=== PATIENT | male | born 1945 | race Caucasian/White ===

== ENCOUNTER 2016-10-13 08:08 | Outpatient (CLI) | payer MEDICARE, BC | END 2016-10-13 08:09 | disposition home or self-care (01) | DX: E03.9 Hypothyroidism, unspecified (principal); Z72.89 Other problems related to lifestyle; I25.10 Atherosclerotic heart disease of native coronary artery without angina pectoris; Z79.899 Other long term (current) drug therapy; E78.2 Mixed hyperlipidemia; R73.09 Other abnormal glucose; Z13.9 Encounter for screening, unspecified ==

== ENCOUNTER 2016-10-18 09:11 | Outpatient (CLI) | payer MEDICARE, BC | END 2016-10-18 09:12 | disposition home or self-care (01) | DX: B19.20 Unspecified viral hepatitis C without hepatic coma (principal) ==

== ENCOUNTER 2016-10-22 08:57 | Emergency (ER) | payer MEDICARE, BC | END 2016-10-22 10:05 | disposition home or self-care (01) | DX: S86.912A Strain of unspecified muscle(s) and tendon(s) at lower leg level, left leg, initial encounter (principal); X50.1XXA Overexertion from prolonged static or awkward postures, initial encounter; Y92.003 Bedroom of unspecified non-institutional (private) residence as the place of occurrence of the external cause; I10 Essential (primary) hypertension; I25.10 Atherosclerotic heart disease of native coronary artery without angina pectoris; Z79.02 Long term (current) use of antithrombotics/antiplatelets; Z95.5 Presence of coronary angioplasty implant and graft; Z79.82 Long term (current) use of aspirin ==

== ENCOUNTER 2016-10-23 11:16 | Outpatient (CLI) | payer MEDICARE, BC | END 2016-10-23 11:17 | disposition home or self-care (01) | DX: B19.20 Unspecified viral hepatitis C without hepatic coma (principal) ==

== ENCOUNTER 2016-10-29 12:36 | Emergency (ER) | payer MEDICARE, BC | END 2016-10-29 13:30 | disposition home or self-care (01) | DX: S86.912D Strain of unspecified muscle(s) and tendon(s) at lower leg level, left leg, subsequent encounter (principal); X50.1XXD Overexertion from prolonged static or awkward postures, subsequent encounter; I10 Essential (primary) hypertension; Z79.82 Long term (current) use of aspirin ==

== ENCOUNTER 2016-10-30 18:55 | Outpatient (CLI) | payer MEDICARE, BC | END 2016-10-30 18:56 | disposition home or self-care (01) | DX: R60.0 Localized edema (principal); M79.662 Pain in left lower leg ==

== ENCOUNTER 2017-01-08 17:58 | Observation (INO) | payer MEDICARE, BC ==
[2017-01-08] MEDS ORDERED: ASPIRIN CHEW 81 MG TABLET PO STA (18:30)
[2017-01-08] MEDS ORDERED: ASPIRIN CHEW 81 MG TABLET ONE (18:36)
[2017-01-08] MEDS ORDERED: ACETAMINOPHEN 325 MG TABLET PO PRN (20:09)
[2017-01-08] MEDS ORDERED: HYDROcod/ACETAM 5/325 MG TABLET PO PRN (20:09)
[2017-01-08] MEDS ORDERED: SODIUM CHLORIDE FLUSH 0.9% 10 ML SYRINGE IVP PRN (20:09)
[2017-01-08] MEDS ORDERED: HYDROcod/ACETAM 10 MG/325 MG TABLET PO PRN (20:09)
[2017-01-08] MEDS ORDERED: ONDANSETRON 4 MG/2 ML VIAL IVP PRN (20:09)
[2017-01-08] MEDS ORDERED: ONDANSETRON ODT 4 MG TABLET TL PRN (20:09)
[2017-01-08] MEDS ORDERED: NITROGLYCERIN SL 0.4 MG TABLET SL PRN (20:11)
[2017-01-08] MEDS ORDERED: MORPHINE 2 MG/ML SYRINGE IVP PRN (20:11)
[2017-01-08] MEDS: METOPROLOL TARTRATE 25 MG TABLET PO SCH (22:26)
[2017-01-08] MEDS: SODIUM CHLORIDE FLUSH 0.9% 10 ML SYRINGE IVP SCH (22:28)
[2017-01-09] MEDS: SODIUM CHLORIDE FLUSH 0.9% 10 ML SYRINGE IVP SCH (06:23)
[2017-01-09] MEDS ORDERED: LEVOTHYROXINE 112 MCG TABLET PO SCH (07:00)
[2017-01-09] MEDS ORDERED: LEVOTHYROXINE 25 MCG TABLET PO SCH (07:00)
[2017-01-09] MEDS: METOPROLOL TARTRATE 25 MG TABLET PO SCH (08:12)
[2017-01-09] MEDS ORDERED: ASPIRIN CHEW 81 MG TABLET PO SCH (09:00)
[2017-01-09] MEDS ORDERED: CLOPIDOGREL 75 MG TABLET PO SCH (09:00)
[2017-01-09] MEDS ORDERED: ATORVASTATIN 40 MG TABLET PO SCH (09:00)
[2017-01-09] MEDS ORDERED: NON FORMULARY MED (Levothyroxine Sodium [Levothyroxine Sodium] 137 MCG) PO SCH (09:00)
[2017-01-09] MEDS ORDERED: POLYETHYLENE GLYCOL 3350 17 GM PACKET PO SCH (09:00)
[2017-01-09] MEDS ORDERED: ASPIRIN 325 MG TABLET PO SCH (09:00)
== END 2017-01-09 08:42 | disposition home or self-care (01) ==
DX: R07.89 Other chest pain (principal); I25.10 Atherosclerotic heart disease of native coronary artery without angina pectoris; I25.5 Ischemic cardiomyopathy; E03.9 Hypothyroidism, unspecified; K21.9 Gastro-esophageal reflux disease without esophagitis; M10.9 Gout, unspecified; Z95.5 Presence of coronary angioplasty implant and graft; Z79.02 Long term (current) use of antithrombotics/antiplatelets; Z79.51 Long term (current) use of inhaled steroids; Z79.82 Long term (current) use of aspirin; I25.2 Old myocardial infarction; Z90.79 Acquired absence of other genital organ(s); Z79.899 Other long term (current) drug therapy; Z66 Do not resuscitate
CPT/HCPCS: 36415; 71010; 80048; 80053; 82550; 82553; 83690; 84484; 85025; 93005; 93010; 99284; 99285; A9270; G0378

== ENCOUNTER 2017-02-19 07:27 | Outpatient (CLI) | payer MEDICARE, BC ==
[2017-02-19 08:05] LABS: HEMOGLOBIN A1C 0.6 g/dL
[2017-02-19 08:06] LABS: CALCIUM 8.9 mg/dL (8.5-10.3); CREATININE 1.1 mg/dL (0.6-1.2); POTASSIUM 3.9 mmol/L (3.5-5.0)
== END 2017-02-19 07:28 | disposition home or self-care (01) ==
LOC: LAB 07:27
PROVIDERS: ATTEND Internal Medicine
DX: E78.2 Mixed hyperlipidemia (principal)
CPT/HCPCS: 36415; 80048; 83036

== ENCOUNTER 2017-02-27 15:12 | Outpatient (CLI) | payer MEDICARE, BC ==
--- NOTE | 2017-02-27 17:00 | Ultrasound Report ---
SCROTAL DUPLEX: 02/27/2017 CLINICAL INDICATION: Right testicular pain. TECHNIQUE: Real-time scanning was performed with residential sales representative static images obtained. The right testicle measures 5.0 x 3.3 x 2.3 cm, and the left testicle measures 5.0 x 2.8 x 2.1 cm. B oth testicles demonstrate normal flow and echotexture. The epididymides are unremarkable. No hydroc lokesh is present. Bilateral varicoceles are noted. No hernia is seen. IMPRESSION: BILATERAL VARICOCELES. NORMAL TESTES. Results called to Dr. Wang on 02/27/2017 at 1550 hours. JOB #: [id number] EXT JOB #:[id number]
== END 2017-02-27 15:13 | disposition home or self-care (01) ==
LOC: DI 15:12
PROVIDERS: ATTEND Internal Medicine
DX: N50.811 Right testicular pain (principal); I86.1 Scrotal varices
CPT/HCPCS: 76870; 93975

== ENCOUNTER 2017-03-30 09:28 | Emergency (ER) | payer MEDICARE, BC ==
[2017-03-30 09:35] VITALS: BP 139/81
--- NOTE | 2017-03-30 09:47 | ED Physician Documentation ---
PD HPI SKIN - Stated complaint Stated Complaint: NOSE BLEMISH - Chief complaint Chief Complaint: General - History obtained from History obtained from: Patient - History of Present Illness Timing - onset: Today Timing - duration: Hours (a5) Timing - details: Gradual onset, Still present Location: Face Quality / character: Other (bleeding) Improved by: Other (pressure) Similar symptoms before: Has not had sx before Recently seen: Clinic (referred here from [facility]'s office for cautery.) - Additional information Additional information: 72-year-old male awoke with blood on his pillow this morning and noticed that he had some bleeding from the tip of his nose. He is on Plavix and he has not been able to control bleeding. Went in to see his primary care doctor and was referred here to the emergency department for cautery. Review of Systems Constitutional: denies: Fever, Chills, Myalgias, Fatigue Eyes: denies: Decreased vision Ears: denies: Ear pain Nose: denies: Rhinorrhea / runny nose, Congestion, Epistaxis, Sinus pressure / pain Throat: denies: Sore throat Cardiac: denies: Chest pain / pressure, Palpitations Respiratory: denies: Dyspnea, Cough GI: denies: Vomiting PD PAST MEDICAL HISTORY - Past Medical History Cardiovascular: Hypertension, Coronary artery disease Respiratory: Asthma, Pneumonia Neuro: None Endocrine/Autoimmune: HyPOthyroidism GI: GERD : None HEENT: None Psych: Claustrophobia Musculoskeletal: Osteoarthritis Derm: None - Past Surgical History Past Surgical History: Yes General: Appendectomy, Hiatal hernia repair Cardiovascular: Coronary stent - Present Medications Home Medications: Ambulatory Orders Medication Instructions Recorded Confirmed Levothyroxine Sodium 137 mcg PO DAILY 04/13/14 01/08/17 Albuterol Sulfate [Albuterol 1 puffs INH Q6HR 12/23/14 01/08/17 Sulfate Hfa] Aspirin 81 mg PO DAILY 12/25/14 01/08/17 Atorvastatin [Lipitor] 80 mg PO DAILY 12/25/14 01/08/17 Clopidogrel [Plavix] 75 mg PO DAILY 12/25/14 01/08/17 Metoprolol Tartrate 12.5 mg PO BID 12/25/14 01/08/17 Nitroglycerin [Nitrostat] 0.4 mg SL Q5MIN PRN 01/08/17 01/08/17 - Allergies Allergies/Adverse Reactions: Allergies Allergy/AdvReac Type Severity Reaction Status Date / Time colchicine AdvReac Anxiety Verified 10/22/16 09:12 - Social History Does the pt smoke?: No Smoking Status: Never smoker Does the pt drink ETOH?: No Does the pt have substance abuse?: No - Immunizations Immunizations are current?: Yes - POLST Patient has POLST: No PD ED PE NORMAL - Vitals Vital signs reviewed: Yes (Hypertensive) - General General: Alert and oriented X 3, No acute distress, Well developed/nourished - HEENT HEENT: Atraumatic, PERRL, EOMI, Other (Over the tip of the nose is a superficial abrasion that appears to be losing blood and this does not stop spontaneously.The area of bleeding is approximately 4 mm.) - Neck Neck: Supple, no meningeal sign - Respiratory Respiratory: No respiratory distress - Derm Derm: Normal color, Warm and dry, No rash - Extremities Extremities: No deformity, No edema - Neuro Neuro: No motor deficit, No sensory deficit - Psych Psych: Normal mood, Normal affect Results - Vitals Vitals: Vital Signs - 24 hr 03/30/17 09:34 Temperature 36 C L Heart Rate 74 Respiratory 14 Rate Blood Pressure 139/81 H O2 Saturation 97 Oxygen O2 Source Room air PD MEDICAL DECISION MAKING - ED course Complexity details: considered differential, d/w patient ED course: 72-year-old male with a lesion to the tip of his nose that is bleeding appears to be a superficial abrasion and bleeding is controlled easily with a single treatment with silver nitrate cautery. Departure - Departure Disposition: 01 Home, Self Care Clinical Impression: Skin hemorrhage Condition: Stable Instructions: First Aid Bleeding Follow-Up: Tj Wang MD [Primary Care Provider] -
== END 2017-03-30 10:00 | disposition home or self-care (01) ==
LOC: ED 09:28
DX: S00.31XA Abrasion of nose, initial encounter (principal); X58.XXXA Exposure to other specified factors, initial encounter; I10 Essential (primary) hypertension; I25.10 Atherosclerotic heart disease of native coronary artery without angina pectoris; Z95.5 Presence of coronary angioplasty implant and graft; Z79.02 Long term (current) use of antithrombotics/antiplatelets; Z79.82 Long term (current) use of aspirin
CPT/HCPCS: 12011; 99282; 99283

== ENCOUNTER 2017-04-22 10:47 | Emergency (ER) | payer MEDICARE, BC ==
[2017-04-22 10:53] VITALS: BP 138/87
--- NOTE | 2017-04-22 11:24 | ED Physician Documentation ---
History of Present Illness - Stated complaint Stated Complaint: R POINTY LAC - Chief complaint Chief Complaint: Laceration - Additonal information Additional information: hx from pt 72 male lac from bread knife cuttign bagel tdap UTD on plavix was bleeding now stopped Review of Systems Skin: reports: Laceration (s) Endocrine: reports: Easy bruising / bleeding PD PAST MEDICAL HISTORY - Past Medical History Past Medical History: Yes Cardiovascular: Hypertension, Coronary artery disease Respiratory: Asthma, Pneumonia Neuro: None Endocrine/Autoimmune: HyPOthyroidism GI: GERD : None HEENT: None Psych: Claustrophobia Musculoskeletal: Osteoarthritis Derm: None - Past Surgical History Past Surgical History: Yes General: Appendectomy, Hiatal hernia repair Cardiovascular: Coronary stent - Present Medications Home Medications: Ambulatory Orders Medication Instructions Recorded Confirmed Levothyroxine Sodium 137 mcg PO DAILY 04/13/14 04/22/17 Albuterol Sulfate [Albuterol 1 puffs INH Q6HR 12/23/14 04/22/17 Sulfate Hfa] Aspirin 81 mg PO DAILY 12/25/14 04/22/17 Atorvastatin [Lipitor] 80 mg PO DAILY 12/25/14 04/22/17 Clopidogrel [Plavix] 75 mg PO DAILY 12/25/14 04/22/17 Metoprolol Tartrate 12.5 mg PO BID 12/25/14 04/22/17 Nitroglycerin [Nitrostat] 0.4 mg SL Q5MIN PRN 01/08/17 04/22/17 - Allergies Allergies/Adverse Reactions: Allergies Allergy/AdvReac Type Severity Reaction Status Date / Time colchicine AdvReac Anxiety Verified 10/22/16 09:12 - Social History Does the pt smoke?: No Smoking Status: Never smoker Does the pt drink ETOH?: No Does the pt have substance abuse?: No - Immunizations Immunizations are current?: Yes - POLST Patient has POLST: No PD ED PE NORMAL - Vitals Vital signs reviewed: Yes - Extremities Extremities: Other (1 cm lac palmar aspect distal pahalnx R index just distal to IP jt, MSV and tendon fxn intact, no FB, no bleeding) Results - Vitals Vitals: Vital Signs - 24 hr 04/22/17 10:51 Temperature 35.9 C L Heart Rate 68 Respiratory 16 Rate Blood Pressure 138/87 H O2 Saturation 100 Oxygen O2 Source Room air Procedures - Laceration (location) R index Length in cm: 1 Wound type: Curved Neurovascular status: Sensory intact, Motor intact Tendon involvement: Tendon intact Anesthesia: OTH (none needed) Wound Preparation: Irrigated copiously NS, Wound explored, To the base. No: FB identified Skin layer closure: Dermabond Other: Patient tolerated well, No complications, Tetanus UTD, Other Complexity: Simple Departure - Departure Disposition: 01 Home, Self Care Clinical Impression: Laceration Condition: Good Instructions: ED Laceration Ext Skin Glue Follow-Up: Tj Wang MD [Primary Care Provider] - Comments: Wear he splint for the next two days to prevent the finger from bending After that the splint should not be needed but you can wear it if you like May wash your hands as usual but do not apply any lotion ointment to the wound as that may dissolve the glue And please follow up with your PMD to get your blood pressure rechecked - it was high today Discharge Date/Time: 04/22/17 11:55
== END 2017-04-22 11:55 | disposition home or self-care (01) ==
LOC: ED 10:47
DX: S61.210A Laceration without foreign body of right index finger without damage to nail, initial encounter (principal); W26.0XXA Contact with knife, initial encounter; Y93.G9 Activity, other involving cooking and grilling; I10 Essential (primary) hypertension; I25.10 Atherosclerotic heart disease of native coronary artery without angina pectoris; Z95.5 Presence of coronary angioplasty implant and graft
CPT/HCPCS: 12001; 99282; 99283

== ENCOUNTER 2017-06-01 11:37 | Day surgery (SDC) | payer MEDICARE, BC ==
[2017-06-01] MEDS ORDERED: LACTATED RINGERS 1,000 ML IV ONE (12:11)
[2017-06-01] MEDS ORDERED: GLUCAGON 1 MG/ML VIAL IM ONE (13:59)
[2017-06-01] MEDS ORDERED: MIDAZOLAM 2 MG/2 ML VIAL IVP ONE (13:59)
[2017-06-01] MEDS ORDERED: fentaNYL 100 MCG/2 ML VIAL IVP ONE (13:59)
[2017-06-01 15:33] VITALS: BP 129/67
== END 2017-06-01 11:38 | disposition home or self-care (01) ==
LOC: SDS 11:37
PROVIDERS: ATTEND Surgery
PROC: 0DBK8ZX Excision of Ascending Colon, Via Natural or Artificial Opening Endoscopic, Diagnostic (ICD-10-PCS; 2017-06-01)
PROC: 0DBE8ZX Excision of Large Intestine, Via Natural or Artificial Opening Endoscopic, Diagnostic (ICD-10-PCS; principal; 2017-06-01 12:45)
DX: Z12.11 Encounter for screening for malignant neoplasm of colon (principal); D12.3 Benign neoplasm of transverse colon; D12.2 Benign neoplasm of ascending colon; D12.5 Benign neoplasm of sigmoid colon; K63.5 Polyp of colon; K57.30 Diverticulosis of large intestine without perforation or abscess without bleeding; Z95.5 Presence of coronary angioplasty implant and graft; I25.10 Atherosclerotic heart disease of native coronary artery without angina pectoris
CPT/HCPCS: 45384; 45385; J7120; 88305

== ENCOUNTER 2017-06-10 14:14 | Inpatient (IN) | payer MEDICARE, BC ==
[2017-06-10] MEDS ORDERED: SODIUM CHLORIDE 0.9% 1,000 ML IV ONE (14:37)
--- NOTE | 2017-06-10 15:36 | XRAY Preliminary Report ---
Exam: XR Chest 1 View IMPRESSION: Increased mild left base linear opacity, most likely atelectasis, however pneumonia not e xcluded. [facility] SITE ID: [id number]
--- NOTE | 2017-06-10 15:37 | ED Physician Documentation ---
History of Present Illness - Stated complaint Stated Complaint: POST COLONOSCOPY COMPLICATIONS - Chief complaint Chief Complaint: Abd Pain - Additonal information Additional information: hx from pt and EMR 72 male on plavix and asa had colonoscopy with [address] Gan at [facility] on 06/01 has been feeling weak now with large amt of dark blood clots per rectum (about a cup per ) and soa no sig abd pain Review of Systems Constitutional: denies: Fever Cardiac: denies: Chest pain / pressure Respiratory: reports: Dyspnea GI: reports: Bloody / black stool. denies: Abdominal Pain Neurologic: reports: Generalized weakness Endocrine: reports: Easy bruising / bleeding Immunocompromised: denies: Immunocompromised PD PAST MEDICAL HISTORY - Past Medical History Cardiovascular: Hypertension, Coronary artery disease Respiratory: Asthma, Pneumonia Neuro: None Endocrine/Autoimmune: HyPOthyroidism GI: GERD : None HEENT: None Psych: Claustrophobia Musculoskeletal: Osteoarthritis Derm: None - Past Surgical History Past Surgical History: Yes General: Appendectomy, Hiatal hernia repair Cardiovascular: Coronary stent - Present Medications Home Medications: Ambulatory Orders Medication Instructions Recorded Confirmed Levothyroxine Sodium 137 mcg PO DAILY 04/13/14 06/01/17 Albuterol Sulfate [Albuterol 1 puffs INH Q6HR 12/23/14 06/01/17 Sulfate Hfa] Aspirin 81 mg PO DAILY 12/25/14 06/01/17 Atorvastatin [Lipitor] 80 mg PO DAILY 12/25/14 06/01/17 Clopidogrel [Plavix] 75 mg PO DAILY 12/25/14 06/01/17 Metoprolol Tartrate 12.5 mg PO BID 12/25/14 06/01/17 Nitroglycerin [Nitrostat] 0.4 mg SL Q5MIN PRN 01/08/17 06/01/17 Cholecalciferol (Vitamin D3) 2,000 unit PO DAILY 06/01/17 06/01/17 [Vitamin D] Famotidine 20 mg PO BID 06/01/17 06/01/17 - Allergies Allergies/Adverse Reactions: Allergies Allergy/AdvReac Type Severity Reaction Status Date / Time colchicine AdvReac Anxiety Verified 05/31/17 12:42 - Social History Does the pt smoke?: No Smoking Status: Never smoker Does the pt drink ETOH?: No Does the pt have substance abuse?: No - Immunizations Immunizations are current?: Yes - POLST Patient has POLST: No PD ED PE NORMAL - Vitals Vital signs reviewed: Yes - HEENT HEENT: Other (little pale) - Cardiac Cardiac: RRR - Respiratory Respiratory: No respiratory distress, Clear bilaterally - Abdomen Abdomen: Soft, Non tender - Rectal Rectal: Other (no fissure or hemorrhoid on mass on RAIN, bloody mucosu, heme +) Results - Vitals Vitals: Vital Signs - 24 hr 06/10/17 06/10/17 06/10/17 14:26 16:13 16:20 Temperature 36.1 C L 36.7 C Heart Rate 70 62 64 Heart Rate [ Brachial] Respiratory 16 15 18 Rate Blood Pressure 117/78 110/62 120/66 Blood Pressure [Right Brachial artery] O2 Saturation 99 99 97 06/10/17 06/10/17 16:52 18:35 Temperature 36.4 C L Heart Rate 65 Heart Rate [ 65 Brachial] Respiratory 16 Rate Blood Pressure 109/67 Blood Pressure 125/77 [Right Brachial artery] O2 Saturation 96 100 Oxygen O2 Source Room air - Labs Labs: Laboratory Tests 06/10/17 06/10/17 06/10/17 15:28 15:28 15:28 WBC 7.9 RBC 4.72 Hgb 14.2 Hct 41.0 L MCV 87.0 MCH 30.0 MCHC 34.5 RDW 13.3 Plt Count 168 MPV 8.2 Neut # 4.9 Lymph # 2.2 [facility] # 0.5 Eos # 0.2 Baso # 0.1 Absolute Nucleated RBC 0.01 Nucleated RBCs 0.1 PT 12.2 INR 1.1 Sodium 138 Potassium 3.7 Chloride 104 Carbon Dioxide 26 Anion Gap 8.0 BUN 20 Creatinine 1.1 Estimated GFR (MDRD) 66 L Glucose 150 H Lactic Acid Calcium 8.6 Total Bilirubin 1.0 AST 21 ALT 30 Alkaline Phosphatase 62 Total Protein 6.3 L Albumin 4.0 Globulin 2.3 Albumin/Globulin Ratio 1.7 Lipase 29 Blood Type Antibody Screen 06/10/17 06/10/17 15:28 15:28 WBC RBC Hgb Hct MCV MCH MCHC RDW Plt Count MPV Neut # Lymph # [facility] # Eos # Baso # Absolute Nucleated RBC Nucleated RBCs PT INR Sodium Potassium Chloride Carbon Dioxide Anion Gap BUN Creatinine Estimated GFR (MDRD) Glucose Lactic Acid 2.0 Calcium Total Bilirubin AST ALT Alkaline Phosphatase Total Protein Albumin Globulin Albumin/Globulin Ratio Lipase Blood Type B POSITIVE Antibody Screen NEGATIVE - Rads (name of study) CXR Radiology: See rad report (atelectasis) abd xray Radiology: See rad report (no free air) PD MEDICAL DECISION MAKING - ED course ED course: hemodynamically stable and neg imaging but continues to pass melena and is on plavix called Dr Gan and he came to eval pt Departure - Departure Disposition: ED Place in Observation Clinical Impression: GI bleed Qualifiers: GI bleed type/associated pathology: unspecified gastrointestinal hemorrhage type Qualified Code(s): K92.2 - Gastrointestinal hemorrhage, unspecified Condition: Good
--- NOTE | 2017-06-10 15:38 | XRAY Preliminary Report ---
Exam: XR Abdomen 1 View IMPRESSION: Normal 1-view upright abdomen x-ray. No evidence for free air. [facility] SITE ID: [id number]
--- NOTE | 2017-06-10 15:39 | XRAY Report ---
EXAM: CHEST RADIOGRAPHY EXAM DATE: 06/10/2017 03:06 PM. CLINICAL HISTORY: Shortness of air COMPARISON: Chest 03/06/2010. TECHNIQUE: 1 view. FINDINGS: Lungs/Pleura: Increased mild left base linear opacity, most likely atelectasis, however pneumonia not excluded. No pleural effusion or pneumothorax. Mediastinum: Within exam limitations, cardiomediastinal contour is normal. IMPRESSION: Increased mild left base linear opacity, most likely atelectasis, however pneumonia not e xcluded. [facility] Referring Provider Line: [phone] SITE ID: [id number]
--- NOTE | 2017-06-10 15:41 | XRAY Report ---
EXAM: ABDOMEN RADIOGRAPHY EXAM DATE: 06/10/2017 03:06 PM. CLINICAL HISTORY: Upright for free air. Colonoscopy complications, possible free air. COMPARISON: Chest 01/11/2015. TECHNIQUE: 1 view, upright. FINDINGS: Bowel Gas Pattern: Within normal limits. No dilated loops. No significant air-fluid levels. Other: No evidence for free air. IMPRESSION: Normal 1-view upright abdomen x-ray. No evidence for free air. [facility] Referring Provider Line: [phone] SITE ID: [id number]
[2017-06-10 15:48] LABS: BASOPHILS # (AUTO) 0.1 10^3/uL (0.0-0.1); BASOPHILS % (AUTO) 0.9 %; EOSINOPHILS # (AUTO) 0.2 10^3/uL (0.0-0.7); EOSINOPHILS % (AUTO) 2.1 %; HGB - HEMOGLOBIN 14.2 g/dL (14.0-18.0); LYMPHOCYTES # (AUTO) 2.2 10^3/uL (1.5-3.5); LYMPHOCYTES % (AUTO) 28.4 %; MEAN CORPUSCULAR HGB CONC 34.5 g/dL (32.0-36.0); MEAN PLATELET VOLUME 8.2 fL (7.4-11.4); MONOCYTES # (AUTO) 0.5 10^3/uL (0.0-1.0); MONOCYTES % (AUTO) 6.7 %; NEUTROPHILS # (AUTO) 4.9 10^3/uL (1.5-6.6); NEUTROPHILS % (AUTO) 61.9 %; NUCLEATED RED BLOOD CELLS AUTO 0.1 /100WBC; RED BLOOD COUNT 4.72 10^6/uL (4.70-6.10); RED CELL DISTRIBUTION WIDTH 13.3 % (12.0-15.0); UNCORRECTED WHITE BLOOD COUNT 7.9 x10^3/uL; WHITE BLOOD COUNT 7.9 x10^3/uL (4.8-10.8)
[2017-06-10 15:52] LABS: INR 1.1 (0.8-1.2); PT - PROTHROMBIN TIME 12.2 secs (9.9-12.6)
[2017-06-10 16:00] LABS: ALBUMIN/GLOBULIN RATIO 1.7 (1.0-2.2); CALCIUM 8.6 mg/dL (8.5-10.3); CREATININE 1.1 mg/dL (0.6-1.2); POTASSIUM 3.7 mmol/L (3.5-5.0); TOTAL PROTEIN 6.3 g/dL (6.7-8.2)
[2017-06-10] MEDS ORDERED: NITROGLYCERIN SL 0.4 MG TABLET SL PRN (17:35)
[2017-06-10] MEDS ORDERED: ALBUTEROL NEB 2.5 MG/3 ML INH PRN (18:45)
[2017-06-10] MEDS: SODIUM CHLORIDE 0.9% 1,000 ML IV SCH (18:59)
[2017-06-10] MEDS: SODIUM CHLORIDE FLUSH 0.9% 10 ML SYRINGE IVP SCH (19:00)
[2017-06-10 19:18] LABS: HCT - HEMATOCRIT 38.8 % (42.0-52.0); HGB - HEMOGLOBIN 13.4 g/dL (14.0-18.0)
[2017-06-10] MEDS ORDERED: METOPROLOL TARTRATE 25 MG TABLET PO SCH (21:00)
[2017-06-10] MEDS ORDERED: FAMOTIDINE 20 MG TABLET PO SCH (21:00)
[2017-06-10 23:08] LABS: HCT - HEMATOCRIT 35.8 % (42.0-52.0); HGB - HEMOGLOBIN 12.2 g/dL (14.0-18.0)
[2017-06-11] MEDS: PANTOPRAZOLE 40 MG VIAL IVP SCH ×2 (00:10→06:57)
[2017-06-11] MEDS: SODIUM CHLORIDE FLUSH 0.9% 10 ML SYRINGE IVP PRN (00:10)
[2017-06-11] MEDS ORDERED: FUROSEMIDE 20 MG/2 ML VIAL IVP PRN (00:11)
--- NOTE | 2017-06-11 00:58 | HISTORY & PHYSICAL EXAMINATION ---
DATE OF ADMISSION: 06/10/2017 REASON FOR REFERRAL: Gastrointestinal bleeding. HISTORY OF PRESENT ILLNESS: The patient is a 72-year-old male who had underwent a colonoscopy 9 days ago. He had multiple polyps removed from the right colon, including one large one near the cecum. He has significant coronary artery disease undergoing two stent placements 2 years ago for cardiac disea se. He had been on Plavix, but this was stopped 5 days before the procedure. The Plavix was also held for 5 days after that procedure restarting it on Sunday. He now presents starting this afternoon bradley ving any maroon bowel movement. He has had several since then. Because of this, he was brought to the emergency room. In the emergency room, his vital have been stable without being tachycardic. Blood p ressure is 110/62 with a heart rate of 62. He had a hemoglobin of 14. PAST MEDICAL HISTORY: 1. History of ischemic cardiomyopathy status post coronary artery stent placement in 2014. 2. History of atypical chest pain. 3. History of atrial fibrillation. 4. Gastroesophageal reflux disease. 5. Hypertension. 6. Gout. 7. Hypothyroidism. SURGICAL HISTORY: 1. TURP. 2. Strangulated testicle surgery. 3. Colonoscopy. 4. Bilateral inguinal hernia repair. 5. Appendectomy. MEDICATIONS: 1. Plavix. 2. Metoprolol. 3. Lipitor. 4. Levothyroxine. 5. Aspirin. 6. Albuterol. 7. Nitroglycerin. HABITS: The patient denies any smoking history and occasionally uses alcohol. FAMILY HISTORY: Emphysema and lung cancer. ALLERGIES TO MEDICATIONS: NONE. REVIEW OF SYSTEMS: GASTROINTESTINAL: Bloody bowel movements. CARDIOVASCULAR: Denies any chest pain. PULMONARY: Denies shortness breath. GENITOURINARY: Denies any urinary frequency. Twelve-point review of systems obtained with pertinent positives discussed and all others being negat robina. PHYSICAL EXAMINATION: VITALS: Blood pressure 110/62, heart rate 62, temperature 36.7. GENERAL: The patient is sitting in bed. He is cooperative and does not appear to be in any significan t distress. HEART: Regular. LUNGS: Clear. ABDOMEN: Soft, nontender. EXTREMITIES: No edema. DIAGNOSTIC DATA: Hemoglobin of 14. INR of 1.1. Creatinine of 1.1. ASSESSMENT: 1. Status post recent colonoscopy 9 days ago with patient resuming his Plavix 5 days ago. He now pres ents with an acute GI bleed and is most likely bleeding from one of the polypectomy sites that he has had. He seems to be hemodynamically stable at the current time. I would recommend the patient be adm itted to the hospital for evaluation and following his hemoglobin and hematocrit. 2. History of coronary artery disease, stable at the current time. 3. Hypothyroidism, on medications. 4. Hypertension, on medications. PLAN: 1. The patient be admitted to observation. 2. Type and cross match. 3. Follow H and H. 4. Clear liquids. 5. IV fluids. JOB #: [id number] EXT JOB #:[id number]
[2017-06-11] MEDS: SODIUM CHLORIDE 0.9% 1,000 ML IV SCH ×2 (05:00→18:33)
--- NOTE | 2017-06-11 05:22 | PROVIDER PROGRESS NOTE ---
Diathermy Equipment Repairer Note - Diathermy Equipment Repairer Note Diathermy Equipment Repairer Note: I was called by the RN regarding this surgical patient. The patient had been admitted for lower GI bleed. He had had multiple bloody bowel movements since being admitted. The patient had undergone polypectomy of a polyp in the right colon about 1 week earlier. Prior to surgery the patient's Plavix has been held and was just restarted 2 days ago. The patient presented with bright red blood per rectum. I was called during my slot shift manager due to patient having substernal chest pain. On further assessment of the patient's chart the patient has history of coronary artery disease status post 2 stents and appears to have chronic stable angina. Since the surgeon was not in-house I did order an EKG and troponin as well as a stat hemoglobin. The patient's EKG was unchanged from previous EKG in December 2016. The patient's troponin was negative. The patient's hemoglobin had dropped by 2 g from previous draw earlier in the evening. The patient's blood pressure was borderline low but he was otherwise appearing stable. The patient's chest discomfort improved with oxygen and nitroglycerin. The surgeon labor relations analyst decided to transfer the patient to the ICU for closer monitoring given his cardiac history. The patient's hemoglobin will continue to be monitored. I did order platelets for the patient to be transfused later this evening. The patient also was typed and crossed for 4 units of packed RBCs in case his hemoglobin continues to fall. This was a curbside consult as surgery did not ask for a formal consult.
[2017-06-11 05:56] LABS: BASOPHILS % (AUTO) 0.4 %; EOSINOPHILS # (AUTO) 0.1 10^3/uL (0.0-0.7); HCT - HEMATOCRIT 33.5 % (42.0-52.0); HGB - HEMOGLOBIN 11.6 g/dL (14.0-18.0); LYMPHOCYTES # (AUTO) 2.4 10^3/uL (1.5-3.5); MEAN CORPUSCULAR HEMOGLOBIN 30.5 pg (27.0-31.0); MEAN CORPUSCULAR HGB CONC 34.7 g/dL (32.0-36.0); MEAN CORPUSCULAR VOLUME 88.1 fL (80.0-94.0); MEAN PLATELET VOLUME 7.8 fL (7.4-11.4); MONOCYTES # (AUTO) 0.7 10^3/uL (0.0-1.0); MONOCYTES % (AUTO) 6.8 %; NEUTROPHILS % (AUTO) 68.8 %; NUCLEATED RED BLOOD CELLS AUTO 0.1 /100WBC; RED CELL DISTRIBUTION WIDTH 13.3 % (12.0-15.0); UNCORRECTED WHITE BLOOD COUNT 10.2 x10^3/uL; WHITE BLOOD COUNT 10.2 x10^3/uL (4.8-10.8)
[2017-06-11] MEDS: LEVOTHYROXINE 25 MCG TABLET PO SCH (06:57)
[2017-06-11] MEDS: LEVOTHYROXINE 112 MCG TABLET PO SCH (06:57)
[2017-06-11] MEDS: SODIUM CHLORIDE FLUSH 0.9% 10 ML SYRINGE IVP SCH ×3 (06:58→23:25)
[2017-06-11] MEDS ORDERED: NON FORMULARY MED (Levothyroxine Sodium [Levothyroxine Sodium] 137 MCG) PO SCH (09:00)
[2017-06-11] MEDS ORDERED: ATORVASTATIN 40 MG TABLET PO SCH (09:00)
[2017-06-11] MEDS ORDERED: SODIUM CHLORIDE 0.9% 250 ML IV ONE (09:22)
[2017-06-11] MEDS: CHOLECALCIFEROL 1,000 UNIT TABLET PO SCH (09:35)
[2017-06-11] MEDS ORDERED: ACETAMINOPHEN 325 MG TABLET PO PRN (10:30)
[2017-06-11 11:21] LABS: HCT - HEMATOCRIT 30.5 % (42.0-52.0); HGB - HEMOGLOBIN 10.5 g/dL (14.0-18.0)
[2017-06-11] MEDS ORDERED: ALBUTEROL NEB 2.5 MG/3 ML INH PRN ×2 (11:54→18:55)
[2017-06-11 17:18] LABS: HCT - HEMATOCRIT 33.9 % (42.0-52.0); HGB - HEMOGLOBIN 11.5 g/dL (14.0-18.0)
[2017-06-11 23:30] LABS: HCT - HEMATOCRIT 27.6 % (42.0-52.0); HGB - HEMOGLOBIN 9.5 g/dL (14.0-18.0)
[2017-06-12] MEDS: SODIUM CHLORIDE 0.9% 1,000 ML IV SCH ×2 (05:59→12:38)
[2017-06-12 06:06] LABS: BASOPHILS % (AUTO) 0.4 %; EOSINOPHILS # (AUTO) 0.2 10^3/uL (0.0-0.7); EOSINOPHILS % (AUTO) 3.6 %; HGB - HEMOGLOBIN 9.3 g/dL (14.0-18.0); LYMPHOCYTES % (AUTO) 21.8 %; MEAN CORPUSCULAR HEMOGLOBIN 30.5 pg (27.0-31.0); MEAN CORPUSCULAR HGB CONC 34.6 g/dL (32.0-36.0); MEAN CORPUSCULAR VOLUME 88.2 fL (80.0-94.0); MEAN PLATELET VOLUME 7.9 fL (7.4-11.4); MONOCYTES # (AUTO) 0.7 10^3/uL (0.0-1.0); MONOCYTES % (AUTO) 14.7 %; NEUTROPHILS # (AUTO) 2.7 10^3/uL (1.5-6.6); NEUTROPHILS % (AUTO) 59.5 %; RED BLOOD COUNT 3.06 10^6/uL (4.70-6.10); RED CELL DISTRIBUTION WIDTH 13.3 % (12.0-15.0); UNCORRECTED WHITE BLOOD COUNT 4.6 x10^3/uL; WHITE BLOOD COUNT 4.6 x10^3/uL (4.8-10.8)
[2017-06-12] MEDS: SODIUM CHLORIDE FLUSH 0.9% 10 ML SYRINGE IVP SCH ×2 (07:00→09:42)
[2017-06-12] MEDS: LEVOTHYROXINE 25 MCG TABLET PO SCH (07:00)
[2017-06-12] MEDS: PANTOPRAZOLE 40 MG VIAL IVP SCH (07:00)
[2017-06-12] MEDS: LEVOTHYROXINE 112 MCG TABLET PO SCH (07:00)
[2017-06-12] MEDS: CHOLECALCIFEROL 1,000 UNIT TABLET PO SCH (09:18)
[2017-06-12 11:19] LABS: HCT - HEMATOCRIT 27.8 % (42.0-52.0); HGB - HEMOGLOBIN 9.6 g/dL (14.0-18.0)
[2017-06-12] MEDS: METOPROLOL TARTRATE 25 MG TABLET PO SCH (12:40)
[2017-06-12 17:16] LABS: HCT - HEMATOCRIT 29.8 % (42.0-52.0); HGB - HEMOGLOBIN 10.1 g/dL (14.0-18.0)
[2017-06-13 00:02] LABS: HCT - HEMATOCRIT 25.4 % (42.0-52.0); HGB - HEMOGLOBIN 8.7 g/dL (14.0-18.0)
[2017-06-13] MEDS: ATORVASTATIN 40 MG TABLET PO SCH ×2 (01:35→20:32)
[2017-06-13] MEDS: SODIUM CHLORIDE FLUSH 0.9% 10 ML SYRINGE IVP SCH ×4 (01:36→23:01)
[2017-06-13] MEDS: METOPROLOL TARTRATE 25 MG TABLET PO SCH ×3 (01:37→20:31)
[2017-06-13 05:55] LABS: HGB - HEMOGLOBIN 9.1 g/dL (14.0-18.0)
[2017-06-13 05:59] LABS: HCT - HEMATOCRIT 26.4 % (42.0-52.0)
[2017-06-13] MEDS: SODIUM CHLORIDE FLUSH 0.9% 10 ML SYRINGE IVP PRN (06:41)
[2017-06-13] MEDS: LEVOTHYROXINE 112 MCG TABLET PO SCH (06:42)
[2017-06-13] MEDS: LEVOTHYROXINE 25 MCG TABLET PO SCH (06:42)
[2017-06-13] MEDS: PANTOPRAZOLE 40 MG VIAL IVP SCH (06:42)
[2017-06-13] MEDS: CHOLECALCIFEROL 1,000 UNIT TABLET PO SCH (08:22)
[2017-06-13] MEDS ORDERED: PANTOPRAZOLE 40 MG TABLET PO SCH (11:00)
[2017-06-13 11:08] LABS: HCT - HEMATOCRIT 28.1 % (42.0-52.0); HGB - HEMOGLOBIN 9.6 g/dL (14.0-18.0)
[2017-06-13] MEDS: SODIUM CHLORIDE 0.9% 1,000 ML IV SCH (13:31)
[2017-06-13 17:20] LABS: HCT - HEMATOCRIT 26.9 % (42.0-52.0); HGB - HEMOGLOBIN 9.3 g/dL (14.0-18.0)
[2017-06-13 23:14] LABS: HGB - HEMOGLOBIN 8.3 g/dL (14.0-18.0)
[2017-06-14 05:13] LABS: BASOPHILS % (AUTO) 0.8 %; EOSINOPHILS # (AUTO) 0.2 10^3/uL (0.0-0.7); EOSINOPHILS % (AUTO) 3.6 %; HCT - HEMATOCRIT 25.3 % (42.0-52.0); HGB - HEMOGLOBIN 8.6 g/dL (14.0-18.0); LYMPHOCYTES # (AUTO) 1.4 10^3/uL (1.5-3.5); LYMPHOCYTES % (AUTO) 30.5 %; MEAN CORPUSCULAR HEMOGLOBIN 30.1 pg (27.0-31.0); MEAN CORPUSCULAR HGB CONC 34.2 g/dL (32.0-36.0); MEAN CORPUSCULAR VOLUME 87.9 fL (80.0-94.0); MEAN PLATELET VOLUME 7.9 fL (7.4-11.4); MONOCYTES # (AUTO) 0.5 10^3/uL (0.0-1.0); MONOCYTES % (AUTO) 11.4 %; NEUTROPHILS # (AUTO) 2.5 10^3/uL (1.5-6.6); NEUTROPHILS % (AUTO) 53.7 %; RED BLOOD COUNT 2.88 10^6/uL (4.70-6.10); RED CELL DISTRIBUTION WIDTH 13.3 % (12.0-15.0); UNCORRECTED WHITE BLOOD COUNT 4.7 x10^3/uL; WHITE BLOOD COUNT 4.7 x10^3/uL (4.8-10.8)
[2017-06-14] MEDS: SODIUM CHLORIDE FLUSH 0.9% 10 ML SYRINGE IVP SCH ×2 (06:32→13:28)
[2017-06-14] MEDS: LEVOTHYROXINE 112 MCG TABLET PO SCH ×2 (06:32→06:33)
[2017-06-14] MEDS: LEVOTHYROXINE 25 MCG TABLET PO SCH (06:33)
[2017-06-14] MEDS ORDERED: PANTOPRAZOLE 40 MG TABLET PO SCH (07:00)
[2017-06-14] MEDS: CHOLECALCIFEROL 1,000 UNIT TABLET PO SCH (08:13)
[2017-06-14] MEDS: METOPROLOL TARTRATE 25 MG TABLET PO SCH (08:13)
--- NOTE | 2017-06-14 09:52 | PROVIDER PROGRESS NOTE ---
Subjective - General Admit Date: 06/10/17 - Review of Systems General: positive: No symptoms - Other Other Information/Narrative: No bowel movement since yesterday. Objective - Patient Data Vital Signs: Vital Signs x48h Temp Pulse Resp BP Pulse Ox 06/14/17 07:26 36.3 C L 61 12 122/67 97 06/14/17 05:18 36.4 C L 64 20 122/67 97 Intake & Output: Intake and Output Totals x24h 06/12/17 06/13/17 06/14/17 23:59 23:59 23:59 Intake Total 2000 1370 500 Output Total 650 525 600 Balance 1350 845 -100 - Lab Results Lab Results: 06/14/17 04:40 06/10/17 15:28 Other Lab Results: Lab Results x24hrs 06/14/17 06/13/17 06/13/17 Range/Units 04:40 23:06 16:53 WBC 4.7 L (4.8-10.8) x10^3/uL RBC 2.88 L (4.70-6.10) 10^6/uL Hgb 8.6 L 8.3 L 9.3 L (14.0-18.0) g/dL Hct 25.3 L 24.0 L 26.9 L (42.0-52.0) % MCV 87.9 (80.0-94.0) fL MCH 30.1 (27.0-31.0) pg MCHC 34.2 (32.0-36.0) g/dL RDW 13.3 (12.0-15.0) % Plt Count 138 (130-450) 10^3/uL MPV 7.9 (7.4-11.4) fL Neut # 2.5 (1.5-6.6) 10^3/uL Lymph # 1.4 L (1.5-3.5) 10^3/uL Warrick # 0.5 (0.0-1.0) 10^3/uL Eos # 0.2 (0.0-0.7) 10^3/uL Baso # 0.0 (0.0-0.1) 10^3/uL Absolute Nucleated RBC 0.00 x10^3/uL Nucleated RBC % 0.0 /100WBC 06/13/17 Range/Units 10:59 WBC (4.8-10.8) x10^3/uL RBC (4.70-6.10) 10^6/uL Hgb 9.6 L (14.0-18.0) g/dL Hct 28.1 L (42.0-52.0) % MCV (80.0-94.0) fL MCH (27.0-31.0) pg MCHC (32.0-36.0) g/dL RDW (12.0-15.0) % Plt Count (130-450) 10^3/uL MPV (7.4-11.4) fL Neut # (1.5-6.6) 10^3/uL Lymph # (1.5-3.5) 10^3/uL Warrick # (0.0-1.0) 10^3/uL Eos # (0.0-0.7) 10^3/uL Baso # (0.0-0.1) 10^3/uL Absolute Nucleated RBC x10^3/uL Nucleated RBC % /100WBC - Current Medications Current Medications: Current Medications Generic Name Dose Route Start Last Admin Trade Name Freq PRN Reason Stop Dose Admin Acetaminophen 650 mg 06/11/17 10:30 06/11/17 10:51 Tylenol PO 650 mg Q4HR PRN Administration Pain or Fever > 38C (100.4F) Atorvastatin Calcium 80 mg 06/12/17 08:31 06/13/17 20:32 Lipitor PO 80 mg 2100 MAURICIO Administration Cholecalciferol 2,000 unit 06/11/17 09:00 06/14/17 08:13 Vitamin D3 PO 2,000 unit DAILY MAURICIO Administration Sodium Chloride 1,000 mls @ 40 mls/hr 06/12/17 11:49 06/13/17 13:31 Normal Saline 0.9% IV 40 mls/hr .Q25H MAURICIO Administration Levothyroxine Sodium 112 mcg 06/11/17 07:00 06/14/17 06:33 Synthroid PO 112 mcg QDAC MAURICIO Administration Levothyroxine Sodium 25 mcg 06/11/17 07:00 06/14/17 06:33 Synthroid PO 25 mcg QDAC MAURICIO Administration Metoprolol Tartrate 12.5 mg 06/12/17 12:00 06/14/17 08:13 Lopressor PO 12.5 mg BID MAURICIO Administration Pantoprazole Sodium 40 mg 06/14/17 07:00 06/14/17 06:32 Protonix PO 40 mg QDAC MAURICIO Administration Sodium Chloride 10 ml 06/10/17 17:30 06/13/17 06:41 Normal Saline Flush 0.9% IVP 10 ml PRN PRN Administration NEEDED PER PROVIDER ORDERS Sodium Chloride 10 ml 06/10/17 22:00 06/14/17 06:32 Normal Saline Flush 0.9% IVP 10 ml Q8HR MAURICIO Administration Impression/Plan - Problem List Problem List: s/p colonoscopy with polypectomy now with lower gi bleed after resuming plavix. He has now been off plavix for 4 days now. Hgb seemed to have stabilized but overnight now has decreased to 8.3. Follow H&H. If decreases any further then consider transfusion and possibly repeat colonoscopy. Consider bleeding scan.
[2017-06-14 13:20] LABS: HCT - HEMATOCRIT 28.1 % (42.0-52.0); HGB - HEMOGLOBIN 9.8 g/dL (14.0-18.0)
--- NOTE | 2017-06-14 13:41 | Nuclear Medicine Prelim Report ---
Exam: NM GI Bleed/Tagged RBC IMPRESSION: Negative for scintigraphic evidence of active GI bleed. ELEANOR The call report notification system was initiated by Dr. Heber Garcia at 13:32 hrs on 06/14/17. The above findings were discussed with Dr. Gan by Dr. Heber Garcia at 13:39 hrs on 06/14/17. SITE ID: [id number]
--- NOTE | 2017-06-14 13:43 | Nuclear Medicine Report ---
EXAM: GASTROINTESTINAL BLEED LOCALIZATION STUDY WITH VASCULAR FLOW STUDY EXAM DATE: 06/14/2017 11:25 AM. CLINICAL HISTORY: S/p colonoscopy polypectomy 2 wks with post bleed. COMPARISON: None. TECHNIQUE: The patient's own red blood cells were labeled with 25.6 mCi Tc-99m pertechnetate accordin g to department protocol. Following the administration of the radiolabeled red blood cells, dynamic f low images were acquired for the initial 2 minutes. Next, dynamic gamma camera imaging for a total of 60 minutes post injection was acquired from the anterior projection. FINDINGS: No foci of progressive antegrade or retrograde radiotracer activity to suggest etiology of GI bleed. Physiological uptake in vasculature, spleen, liver, and bladder. IMPRESSION: Negative for scintigraphic evidence of active GI bleed. [facility] The call report notification system was initiated by Dr. Heber Garcia at 13:32 hrs on 06/14/17. The above findings were discussed with Dr. Gan by Dr. Heber Garcia at 13:39 hrs on 06/14/17. Referring Provider Line: [phone] SITE ID: [id number]
[2017-06-14] MEDS: SODIUM CHLORIDE 0.9% 1,000 ML IV SCH (13:54)
[2017-06-14] MEDS ORDERED: DOCUSATE SODIUM 250 MG CAPSULE PO SCH (16:00)
[2017-06-14] MEDS ORDERED: FERROUS SULFATE 325 MG TABLET PO SCH (16:00)
--- NOTE | 2017-06-14 17:02 | Discharge Plan ---
Discharge Plan Disposition: Home, Self Care Diet: Regular Activity Restrictions: No Restrictions Shower Restrictions: No Driving Restrictions: No Weight Bearing: Full Weight Additional Instructions or Follow Up instructions: Colace 100mg 2 tablets twice a day while on iron Ferrous sulfate 325 mg daily No Smoking: If you smoke, Please STOP! Call for help. Follow-up with: Hannah Wang MD [Primary Care Provider] - 2 Weeks Jorge Gan MD [Provider Admit Priv/Credential] - 2 Weeks
[2017-06-14 18:21] VITALS: BP 107/74
--- NOTE | 2017-06-20 19:21 | DISCHARGE SUMMARY ---
DATE OF ADMISSION: 06/10/2017 DATE OF DISCHARGE: 06/14/2017 REASON FOR ADMISSION: Gastrointestinal bleeding. HISTORY OF PRESENT ILLNESS: The patient is a 72-year-old male who had underwent a colonoscopy approximately 9 days ago. He had multiple polyps removed, including a larger one in the right colon. He has a history of heart disease on Plavix. His Plavix was held for 5 days with it resuming 4 days ago. He now presents with bright red blood per rectum. PRINCIPAL DIAGNOSIS: Lower gastrointestinal bleeding, status post recent colonoscopy with polypectomy on anticoagulation. OTHER MEDICAL PROBLEMS: 1. Ischemic cardiomyopathy status post coronary artery stent placement in 2014. 2. Atypical chest pain. 3. History of atrial fibrillation. 4. Gastroesophageal reflux. 5. Hypertension. 6. Gout. 7. Hypothyroidism. CONSULTATIONS: Hospitalist consult was obtained for his atypical chest pain. HOSPITAL COURSE: The patient was admitted to the hospital in stable condition. His vitals were stable, along with him having a hemoglobin of 14. The patient did have continued blood per rectum. He did have some complaints of shortness of breath and chest pain. He was then transferred to the intensive care unit. EKG, as well as the enzymes did not reveal any new cardiac problems with his chest pain being unexplained. Because of his Plavix on ongoing bloody stools, he was transfused with 2 u of platelets. At this time, his hemoglobin was 13. Over the next 3 days, his hemoglobin slowly decreased with the lowest being 8.3 , but actually going up to 9.8 at discharge. A bleeding scan had been obtained towards the end of his hospitalization, which did not show any bleeding being present. His hemoglobin had stabilized in the mid 9s and he had bowel movements without blood being present. He had not been transfused with nay PRBCs. At this point, there did not appear to be any need for any intervention as the bleeding had stopped. He was then discharged home in stable condition. DISCHARGE PROGRAM: The patient will be discharged home. He is to followup with Dr. Wang and Dr. Jorge Gan in 2 weeks. Regular diet. Ambulate as tolerated. May resume aspirin in 2 weeks and will discuss later when his Plavix can be resumed. JOB #: [id number] [facility] JOB #:[id number] [facility]
== END 2017-06-14 18:04 | disposition home or self-care (01) | DRG 920 ==
LOC: ED 14:14 → OBS 17:30 → OBSVTOIN 23:06 → ICU 23:21 → MS3 06-12 15:59
PROVIDERS: ADMIT Surgery; ATTEND Surgery
PROC: 30233R1 Transfusion of Nonautologous Platelets into Peripheral Vein, Percutaneous Approach (ICD-10-PCS; principal; 2017-06-11)
DX: K91.840 Postprocedural hemorrhage of a digestive system organ or structure following a digestive system procedure (principal); D62 Acute posthemorrhagic anemia; Y83.8 Other surgical procedures as the cause of abnormal reaction of the patient, or of later complication, without mention of misadventure at the time of the procedure; Y92.234 Operating room of hospital as the place of occurrence of the external cause; I25.119 Atherosclerotic heart disease of native coronary artery with unspecified angina pectoris; I48.91 Unspecified atrial fibrillation; I10 Essential (primary) hypertension; K21.9 Gastro-esophageal reflux disease without esophagitis; E03.9 Hypothyroidism, unspecified; J45.909 Unspecified asthma, uncomplicated; M10.9 Gout, unspecified; Z86.010 Personal history of colon polyps; Z79.82 Long term (current) use of aspirin; Z79.02 Long term (current) use of antithrombotics/antiplatelets; Z79.51 Long term (current) use of inhaled steroids; Z79.899 Other long term (current) drug therapy; Z87.01 Personal history of pneumonia (recurrent); Z95.5 Presence of coronary angioplasty implant and graft
CPT/HCPCS: 36415; 71010; 74000; 78278; 80053; 83605; 83690; 84484; 85014; 85018; 85025; 85610; 86850; 86900; 86901; 86920; 87040; 87150; 93005; 96360; 96361; 99283; 99284

== ENCOUNTER 2017-06-18 09:15 | Outpatient (CLI) | payer MEDICARE, BC ==
[2017-06-18 09:31] LABS: BASOPHILS # (AUTO) 0.1 10^3/uL (0.0-0.1); BASOPHILS % (AUTO) 1.2 %; EOSINOPHILS # (AUTO) 0.1 10^3/uL (0.0-0.7); HCT - HEMATOCRIT 31.2 % (42.0-52.0); HGB - HEMOGLOBIN 10.7 g/dL (14.0-18.0); LYMPHOCYTES # (AUTO) 1.6 10^3/uL (1.5-3.5); LYMPHOCYTES % (AUTO) 23.7 %; MEAN CORPUSCULAR HEMOGLOBIN 30.3 pg (27.0-31.0); MEAN CORPUSCULAR HGB CONC 34.3 g/dL (32.0-36.0); MEAN CORPUSCULAR VOLUME 88.5 fL (80.0-94.0); MEAN PLATELET VOLUME 7.6 fL (7.4-11.4); MONOCYTES # (AUTO) 0.5 10^3/uL (0.0-1.0); NEUTROPHILS # (AUTO) 4.3 10^3/uL (1.5-6.6); NEUTROPHILS % (AUTO) 66.1 %; NUCLEATED RED BLOOD CELLS AUTO 0.1 /100WBC; RED BLOOD COUNT 3.52 10^6/uL (4.70-6.10); RED CELL DISTRIBUTION WIDTH 13.8 % (12.0-15.0); UNCORRECTED WHITE BLOOD COUNT 6.6 x10^3/uL; WHITE BLOOD COUNT 6.6 x10^3/uL (4.8-10.8)
== END 2017-06-18 09:16 | disposition home or self-care (01) ==
LOC: LAB 09:15
PROVIDERS: ATTEND Surgery
DX: D64.9 Anemia, unspecified (principal)
CPT/HCPCS: 36415; 85025

== ENCOUNTER 2017-06-18 13:56 | Emergency (ER) | payer MEDICARE, BC ==
[2017-06-18 14:40] LABS: ALBUMIN/GLOBULIN RATIO 1.7 (1.0-2.2); BILIRUBIN,TOTAL 0.7 mg/dL (0.2-1.0); CALCIUM 8.5 mg/dL (8.5-10.3); CREATININE 1.1 mg/dL (0.6-1.2); POTASSIUM 4.2 mmol/L (3.5-5.0); TOTAL PROTEIN 6.2 g/dL (6.7-8.2)
[2017-06-18 15:00] LABS: BASOPHILS # (AUTO) 0.1 10^3/uL (0.0-0.1); BASOPHILS % (AUTO) 1.1 %; EOSINOPHILS # (AUTO) 0.1 10^3/uL (0.0-0.7); HCT - HEMATOCRIT 31.1 % (42.0-52.0); HGB - HEMOGLOBIN 10.4 g/dL (14.0-18.0); LYMPHOCYTES % (AUTO) 27.9 %; MEAN CORPUSCULAR HGB CONC 33.6 g/dL (32.0-36.0); MEAN CORPUSCULAR VOLUME 89.4 fL (80.0-94.0); MEAN PLATELET VOLUME 8.5 fL (7.4-11.4); MONOCYTES # (AUTO) 0.5 10^3/uL (0.0-1.0); MONOCYTES % (AUTO) 7.2 %; NEUTROPHILS # (AUTO) 4.4 10^3/uL (1.5-6.6); NEUTROPHILS % (AUTO) 61.8 %; NUCLEATED RED BLOOD CELLS AUTO 0.1 /100WBC; RED BLOOD COUNT 3.47 10^6/uL (4.70-6.10); UNCORRECTED WHITE BLOOD COUNT 7.2 x10^3/uL; WHITE BLOOD COUNT 7.2 x10^3/uL (4.8-10.8)
--- NOTE | 2017-06-18 15:19 | XRAY Preliminary Report ---
Exam: XR Chest 2 View PA/LAT IMPRESSION: No acute intrathoracic plain film abnormality. [facility] SITE ID: [id number]
--- NOTE | 2017-06-18 15:22 | XRAY Report ---
EXAM: CHEST RADIOGRAPHY EXAM DATE: 06/18/2017 03:07 PM. CLINICAL HISTORY: Chest Pain. COMPARISON: 06/10/2017. TECHNIQUE: 2 views. FINDINGS: Lungs/Pleura: No focal opacities evident. No pleural effusion. No pneumothorax. Normal volumes. Mediastinum: Heart and mediastinal contours are unremarkable. Other: Mild thickening of the right lateral chest wall probably corresponds to remote rib fractures. IMPRESSION: No acute intrathoracic plain film abnormality. [facility] Referring Provider Line: [phone] SITE ID: [id number]
--- NOTE | 2017-06-18 15:26 | ED Physician Documentation ---
PD HPI CHEST PAIN - Stated complaint Stated Complaint: SOA/CHEST PX - Chief complaint Chief Complaint: Cardiac - History obtained from History obtained from: Patient, Family - History of Present Illness Timing - onset: Enter time (1029), Today Timing - onset during: Light activity Timing - duration: Hours Timing - details: Abrupt onset, Still present Quality: Pressure, Tightness Location: Left chest Improved by: Rest Worsened by: Exertion Associated symptoms: Shortness of air, Feeling faint / dizzy. No: Diaphoresis Similar symptoms before: Diagnosis ([place]) Recently seen: Admitted - Additional information Additional information: 72-year-old male with a history of coronary artery disease who is status post stent placement 2 has had a recent hospitalization here at [facility] for blood loss after colonoscopy with biopsies. He did receive 4 units of blood in transfusion and was discharged from the hospital last week. Today he was at home and feeling in his usual health he went to his doctor's office to get his blood drawn and when he got back he went to park his car back at his home and he had to park it farther away than usual and walking back into the house he developed acute chest pain. He describes it as pressure across the lower chest without radiation and with shortness of breath. His noted his color was green. He sat in his easy chair and the symptoms worsened with continued shortness of breath. He eventually called the surgeon to get results of his blood work and these were good. He called his primary Ro[facility] and was told to go to the ED. Here he had some worsening of the pain and now he has resolution. Review of Systems Constitutional: reports: Fatigue. denies: Fever, Chills, Myalgias Eyes: denies: Decreased vision Ears: denies: Ear pain Nose: denies: Rhinorrhea / runny nose, Congestion Throat: denies: Sore throat Cardiac: reports: Chest pain / pressure. denies: Palpitations, Pedal edema, Calf pain Respiratory: reports: Dyspnea. denies: Cough, Hemoptysis, Wheezing GI: denies: Abdominal Pain, Nausea, Vomiting : denies: Dysuria, Frequency Skin: denies: Rash Musculoskeletal: denies: Neck pain, Back pain, Extremity pain PD PAST MEDICAL HISTORY - Past Medical History Past Medical History: Yes Cardiovascular: Hypertension, High cholesterol, Coronary artery disease Respiratory: Asthma, Pneumonia Neuro: None Endocrine/Autoimmune: HyPOthyroidism GI: GERD : None HEENT: None Psych: Claustrophobia Musculoskeletal: Osteoarthritis Derm: None - Past Surgical History Past Surgical History: Yes General: Appendectomy, Hiatal hernia repair Cardiovascular: Coronary stent - Present Medications Home Medications: Ambulatory Orders Medication Instructions Recorded Confirmed Levothyroxine Sodium 137 mcg PO DAILY 04/13/14 06/18/17 Albuterol Sulfate [Albuterol 1 puffs INH Q6HR 12/23/14 06/18/17 Sulfate Hfa] Atorvastatin [Lipitor] 20 mg PO DAILY 12/25/14 06/18/17 Metoprolol Tartrate 12.5 mg PO BID 12/25/14 06/18/17 Nitroglycerin [Nitrostat] 0.4 mg SL Q5MIN PRN 01/08/17 06/18/17 Cholecalciferol (Vitamin D3) 2,000 unit PO DAILY 06/01/17 06/18/17 [Vitamin D3] Famotidine 20 mg PO BID 06/01/17 06/18/17 Iron,Carbonyl [Iron Chews] 06/18/17 - Allergies Allergies/Adverse Reactions: Allergies Allergy/AdvReac Type Severity Reaction Status Date / Time colchicine AdvReac Anxiety Verified 05/31/17 12:42 - Social History Does the pt smoke?: No Smoking Status: Never smoker Does the pt drink ETOH?: No Does the pt have substance abuse?: No - Immunizations Immunizations are current?: Yes - POLST Patient has POLST: No PD ED PE NORMAL - Vitals Vital signs reviewed: Yes (normal ) - General General: No acute distress, Well developed/nourished - HEENT HEENT: Atraumatic, PERRL, EOMI - Neck Neck: Supple, no meningeal sign, No bony TTP - Cardiac Cardiac: RRR, No murmur - Respiratory Respiratory: No respiratory distress, Clear bilaterally, Other (no chest wall tenderness) - Abdomen Abdomen: Soft, Non tender - Back Back: No CVA TTP, No spinal TTP - Derm Derm: Normal color, Warm and dry, No rash - Extremities Extremities: No deformity, No edema - Neuro Neuro: No motor deficit, No sensory deficit - Psych Psych: Normal mood, Normal affect Results - Vitals Vitals: Vital Signs - 24 hr 06/18/17 06/18/17 06/18/17 14:03 14:16 15:12 Temperature 36.2 C L Heart Rate 63 61 63 Respiratory 16 15 16 Rate Blood Pressure 135/71 H 135/71 H 115/67 O2 Saturation 99 98 96 06/18/17 16:35 Temperature Heart Rate 58 L Respiratory 16 Rate Blood Pressure 115/68 O2 Saturation 100 Oxygen O2 Source Room air - EKG (time done) 1405 Rate: Rate (enter#) (62) Rhythm: NSR QRS: Low voltage Ischemia: Normal ST segments Compare to prior EKG: Unchanged from prior EKG (06-10-17) Computer interpretation: Agree with computer - Labs Labs: Laboratory Tests 06/18/17 06/18/17 06/18/17 14:10 14:10 14:10 WBC 7.2 RBC 3.47 L Hgb 10.4 L Hct 31.1 L MCV 89.4 MCH 30.0 MCHC 33.6 RDW 14.0 Plt Count 196 MPV 8.5 Neut # 4.4 Lymph # 2.0 Chaves # 0.5 Eos # 0.1 Baso # 0.1 Absolute Nucleated RBC 0.01 Nucleated RBC % 0.1 D-Dimer Sodium 139 Potassium 4.2 Chloride 104 Carbon Dioxide 27 Anion Gap 8.0 BUN 13 Creatinine 1.1 Estimated GFR (MDRD) 66 L Glucose 125 H Calcium 8.5 Total Bilirubin 0.7 AST 22 ALT 25 Alkaline Phosphatase 54 Troponin I < 0.04 Total Protein 6.2 L Albumin 3.9 Globulin 2.3 Albumin/Globulin Ratio 1.7 Lipase 35 06/18/17 06/18/17 14:10 16:10 WBC RBC Hgb Hct MCV MCH MCHC RDW Plt Count MPV Neut # Lymph # Chaves # Eos # Baso # Absolute Nucleated RBC Nucleated RBC % D-Dimer 235.5 Sodium Potassium Chloride Carbon Dioxide Anion Gap BUN Creatinine Estimated GFR (MDRD) Glucose Calcium Total Bilirubin AST ALT Alkaline Phosphatase Troponin I < 0.04 Total Protein Albumin Globulin Albumin/Globulin Ratio Lipase - Rads (name of study) 2 view chest Radiology: Prelim report reviewed (Impression: No acute intrathoracic plain film abnormality.), EMP read indepedently, See rad report PD MEDICAL DECISION MAKING - ED course Complexity details: reviewed old records, reviewed results, re-evaluated patient , considered differential, d/w patient, d/w family ED course: 72-year-old male with history of coronary artery disease who is had 2 stents placed has developed chest pain today he has a normal appearing electrocardiogram and a concerning story. His initial troponin is negative. His d-dimer is negative. He has been having symptoms for several months Intermittently and has contacted his political analyst and she has scheduled him for a treadmill test to be done today. This was canceled when he developed the GI bleeding and required transfusion. His story is super concerning and his studies are negative. I have contacted Dr. Caal at [facility] and he recommends transfer to the hospitalist admission for rule out and stress testing. Dr. Hilario the hospitalist graciously agrees to care for the patient in the hospital and arrangements are made for transfer. Departure - Departure Disposition: 02 Transfer Acute Care Hosp Clinical Impression: Chest pain Condition: Stable
[2017-06-18 17:16] VITALS: BP 126/67
== END 2017-06-18 17:31 | disposition short-term general hospital (02) ==
LOC: ED 13:56
DX: R07.9 Chest pain, unspecified (principal); I10 Essential (primary) hypertension; E03.9 Hypothyroidism, unspecified; E78.00 Pure hypercholesterolemia, unspecified; I25.10 Atherosclerotic heart disease of native coronary artery without angina pectoris; Z95.5 Presence of coronary angioplasty implant and graft
CPT/HCPCS: 36415; 71020; 80053; 83690; 84484; 85025; 85379; 93005; 99284; 99285

== ENCOUNTER 2017-06-18 17:28 | Outpatient (CLI) | payer MEDICARE, BC | END 2017-06-18 17:29 | disposition short-term general hospital (02) | LOC: EMS 17:28 | PROVIDERS: ATTEND Surgery | DX: R07.9 Chest pain, unspecified (principal) | CPT/HCPCS: A0425; A0426 ==

== ENCOUNTER 2017-08-29 16:24 | Outpatient (CLI) | payer MEDICARE, BC ==
[2017-08-29 16:50] LABS: BASOPHILS # (AUTO) 0.1 10^3/uL (0.0-0.1); BASOPHILS % (AUTO) 0.9 %; EOSINOPHILS # (AUTO) 0.1 10^3/uL (0.0-0.7); EOSINOPHILS % (AUTO) 1.8 %; HCT - HEMATOCRIT 45.6 % (42.0-52.0); HGB - HEMOGLOBIN 14.9 g/dL (14.0-18.0); LYMPHOCYTES # (AUTO) 2.2 10^3/uL (1.5-3.5); LYMPHOCYTES % (AUTO) 29.7 %; MEAN CORPUSCULAR HEMOGLOBIN 27.9 pg (27.0-31.0); MEAN CORPUSCULAR HGB CONC 32.6 g/dL (32.0-36.0); MEAN CORPUSCULAR VOLUME 85.5 fL (80.0-94.0); MEAN PLATELET VOLUME 8.4 fL (7.4-11.4); MONOCYTES # (AUTO) 0.6 10^3/uL (0.0-1.0); MONOCYTES % (AUTO) 7.9 %; NEUTROPHILS # (AUTO) 4.4 10^3/uL (1.5-6.6); NEUTROPHILS % (AUTO) 59.7 %; RED BLOOD COUNT 5.33 10^6/uL (4.70-6.10); UNCORRECTED WHITE BLOOD COUNT 7.3 x10^3/uL; WHITE BLOOD COUNT 7.3 x10^3/uL (4.8-10.8)
== END 2017-08-29 16:25 | disposition home or self-care (01) ==
LOC: LAB 16:24
PROVIDERS: ATTEND Internal Medicine Gastroenterology
DX: K92.2 Gastrointestinal hemorrhage, unspecified (principal)
CPT/HCPCS: 36415; 85025

== ENCOUNTER 2017-09-07 08:00 | Outpatient (CLI) | payer MEDICARE, BC ==
[2017-09-07 11:51] LABS: ALBUMIN 4.3 g/dL (3.2-5.5); ALBUMIN/GLOBULIN RATIO 1.7 (1.0-2.2); ALKALINE PHOSPHATASE 58 IU/L (42-121); ALT ALANINE AMINOTRANSFERASE 35 IU/L (10-60); AST ASPARTATE AMINOTRANSFERASE 24 IU/L (10-42); BILIRUBIN,TOTAL 0.5 mg/dL (0.2-1.0); BUN - BLOOD UREA NITROGEN 15 mg/dL (6-20); CALCIUM 9.2 mg/dL (8.5-10.3); CARBON DIOXIDE - CO2 27 mmol/L (21-32); CHLORIDE 103 mmol/L (101-111); CREATININE 1.1 mg/dL (0.6-1.2); GFR - MDRD 66 (>89); GLUCOSE 96 mg/dL (70-100); SODIUM 139 mmol/L (135-145); TOTAL PROTEIN 6.8 g/dL (6.7-8.2)
[2017-09-07 11:54] LABS: CRP - C-REACTIVE PROTEIN < 1.0 mg/dL (0-1.0)
[2017-09-12 19:51] LABS: HCV RNA QNT <1.18 NOT DETECTED Log IU/mL (<1.18); HCV RNA QUANT RT PCR <15 NOT DETECTED IU/mL (<15)
== END 2017-09-07 08:01 | disposition home or self-care (01) ==
LOC: LAB.R 08:00
PROVIDERS: ATTEND Internal Medicine
DX: Z12.5 Encounter for screening for malignant neoplasm of prostate (principal); R61 Generalized hyperhidrosis; Z79.899 Other long term (current) drug therapy; R76.0 Raised antibody titer; E03.9 Hypothyroidism, unspecified; I25.10 Atherosclerotic heart disease of native coronary artery without angina pectoris
CPT/HCPCS: 80053; 81599; 84402; 84403; 84443; 85651; 86140; 87522; G0103; 84153

== ENCOUNTER 2017-10-25 09:00 | Outpatient (CLI) | payer MEDICARE, BC ==
[2017-10-25 14:49] LABS: BASOPHILS # (AUTO) 0.1 10^3/uL (0.0-0.1); BASOPHILS % (AUTO) 0.6 %; EOSINOPHILS # (AUTO) 0.1 10^3/uL (0.0-0.7); EOSINOPHILS % (AUTO) 1.7 %; HGB - HEMOGLOBIN 14.7 g/dL (14.0-18.0); LYMPHOCYTES # (AUTO) 2.3 10^3/uL (1.5-3.5); LYMPHOCYTES % (AUTO) 28.3 %; MEAN CORPUSCULAR HEMOGLOBIN 28.2 pg (27.0-31.0); MEAN CORPUSCULAR HGB CONC 33.5 g/dL (32.0-36.0); MEAN CORPUSCULAR VOLUME 84.3 fL (80.0-94.0); MEAN PLATELET VOLUME 8.5 fL (7.4-11.4); MONOCYTES # (AUTO) 0.7 10^3/uL (0.0-1.0); MONOCYTES % (AUTO) 9.2 %; NEUTROPHILS # (AUTO) 4.8 10^3/uL (1.5-6.6); NEUTROPHILS % (AUTO) 60.2 %; PLT - PLATELET COUNT 189 10^3/uL (130-450); RED BLOOD COUNT 5.19 10^6/uL (4.70-6.10); RED CELL DISTRIBUTION WIDTH 15.6 % (12.0-15.0)
[2017-10-25 15:03] LABS: ALBUMIN 4.2 g/dL (3.2-5.5); ALBUMIN/GLOBULIN RATIO 1.4 (1.0-2.2); ALKALINE PHOSPHATASE 60 IU/L (42-121); ALT ALANINE AMINOTRANSFERASE 28 IU/L (10-60); AST ASPARTATE AMINOTRANSFERASE 23 IU/L (10-42); BILIRUBIN,TOTAL 0.9 mg/dL (0.2-1.0); BUN - BLOOD UREA NITROGEN 17 mg/dL (6-20); CALCIUM 9.1 mg/dL (8.5-10.3); CARBON DIOXIDE - CO2 28 mmol/L (21-32); CHLORIDE 103 mmol/L (101-111); CHOL/HDL RATIO 3.1 (<5.0); CHOLESTEROL 108 mg/dL; CREATININE 1.2 mg/dL (0.6-1.2); GFR - MDRD 60 (>89); GLUCOSE 88 mg/dL (70-100); HDL CHOLESTEROL 35 mg/dL; LDL CHOLESTEROL,CALCULATED 49 mg/dL; LDL/HDL RATIO 1.4 (<3.6); SODIUM 138 mmol/L (135-145); TOTAL PROTEIN 7.1 g/dL (6.7-8.2); VLDL CHOLESTEROL 24 mg/dL
== END 2017-10-25 09:01 ==
LOC: LAB.R 09:00
PROVIDERS: ATTEND Internal Medicine
DX: R97.20 Elevated prostate specific antigen [PSA] (principal); M19.90 Unspecified osteoarthritis, unspecified site; E03.9 Hypothyroidism, unspecified; I25.10 Atherosclerotic heart disease of native coronary artery without angina pectoris; Z79.899 Other long term (current) drug therapy
CPT/HCPCS: 80053; 80061; 83721; 84153; 84443; 85025

== ENCOUNTER 2017-12-20 09:06 | Outpatient (CLI) | payer MEDICARE, BC ==
[2017-12-20 10:39] LABS: PSA FREE 0.5 ng/mL (0.16-2.81)
[2017-12-20 10:40] LABS: PSA TOTAL 3.22 ng/mL (0.000-2.000)
== END 2017-12-20 09:07 | disposition home or self-care (01) ==
LOC: LAB 09:06
PROVIDERS: ATTEND Internal Medicine
DX: R97.20 Elevated prostate specific antigen [PSA] (principal)
CPT/HCPCS: 36415; 84154

== ENCOUNTER 2018-03-21 14:16 | Outpatient (CLI) | payer MEDICARE, BC | END 2018-03-21 14:17 | disposition home or self-care (01) | LOC: LAB 14:16 | PROVIDERS: ATTEND Internal Medicine | DX: M79.1 Myalgia (principal) | CPT/HCPCS: 36415; 82550 ==

== ENCOUNTER 2018-04-16 12:01 | Outpatient (CLI) | payer MEDICARE, BC ==
[2018-04-16 13:51] LABS: PSA FREE 0.65 ng/mL (0.16-2.81)
[2018-04-16 13:52] LABS: PSA TOTAL 4.04 ng/mL (0.000-2.000)
== END 2018-04-16 12:02 | disposition home or self-care (01) ==
LOC: LAB 12:01
PROVIDERS: ATTEND Internal Medicine
DX: Z12.5 Encounter for screening for malignant neoplasm of prostate (principal)
CPT/HCPCS: 36415; 84154

== ENCOUNTER 2018-05-27 12:12 | Outpatient (CLI) | payer MEDICARE, BC ==
--- NOTE | 2018-05-27 13:08 | XRAY Report ---
Reason: LUMBAR RADICULOPATHY Procedure Date: 05/27/2018 Accession Number: [id number] / [id number] Procedure: XR - Lumbar Spine 2 View CPT Code: FULL RESULT: EXAM: LUMBOSACRAL SPINE RADIOGRAPHY EXAM DATE: 05/27/2018 12:48 PM. CLINICAL HISTORY: LUMBAR RADICULOPATHY. COMPARISONS: None. TECHNIQUE: 3 views. FINDINGS: Alignment: No spondylolisthesis or scoliosis. Bones: Five [id number] lumbar vertebral bodies are present. No fractures or bone lesions. Disks: There is mild disk space narrowing at L3-L4. There is moderate disk space narrowing at L4-L5. There are moderate anterior osteophytes. Facets: Mild to moderate degenerative changes. Sacroiliac Joints: Limited Soft Tissues: Pelvic clips are noted. IMPRESSION: Moderate lumbar spondylosis [facility]
== END 2018-05-27 12:13 | disposition home or self-care (01) ==
LOC: DI 12:12
PROVIDERS: ATTEND Internal Medicine
DX: M47.26 Other spondylosis with radiculopathy, lumbar region (principal)
CPT/HCPCS: 72100

== ENCOUNTER 2018-05-30 08:00 | Outpatient (CLI) | payer MEDICARE, BC ==
[2018-05-30 14:33] LABS: BASOPHILS # (AUTO) 0.1 10^3/uL (0.0-0.1); EOSINOPHILS # (AUTO) 0.1 10^3/uL (0.0-0.7); EOSINOPHILS % (AUTO) 1.5 %; HGB - HEMOGLOBIN 15.5 g/dL (14.0-18.0); LYMPHOCYTES # (AUTO) 2.3 10^3/uL (1.5-3.5); LYMPHOCYTES % (AUTO) 24.8 %; MEAN CORPUSCULAR HEMOGLOBIN 31.3 pg (27.0-31.0); MEAN CORPUSCULAR HGB CONC 35.1 g/dL (32.0-36.0); MEAN CORPUSCULAR VOLUME 89.1 fL (80.0-94.0); MONOCYTES # (AUTO) 0.9 10^3/uL (0.0-1.0); MONOCYTES % (AUTO) 9.4 %; NEUTROPHILS # (AUTO) 5.9 10^3/uL (1.5-6.6); NEUTROPHILS % (AUTO) 63.3 %; PLT - PLATELET COUNT 183 10^3/uL (130-450); RED BLOOD COUNT 4.96 10^6/uL (4.70-6.10); RED CELL DISTRIBUTION WIDTH 13.5 % (12.0-15.0); WHITE BLOOD COUNT 9.4 x10^3/uL (4.8-10.8)
[2018-05-30 14:42] LABS: ALBUMIN 4.6 g/dL (3.2-5.5); ALBUMIN/GLOBULIN RATIO 1.8 (1.0-2.2); BILIRUBIN,TOTAL 0.9 mg/dL (0.2-1.0); CREATININE 1.1 mg/dL (0.6-1.2); TOTAL PROTEIN 7.2 g/dL (6.7-8.2)
== END 2018-05-30 08:01 | disposition home or self-care (01) ==
LOC: LAB.R 08:00
PROVIDERS: ATTEND Internal Medicine
DX: R10.32 Left lower quadrant pain (principal)
CPT/HCPCS: 80053; 85025

== ENCOUNTER 2018-05-30 14:36 | Outpatient (CLI) | payer MEDICARE, BC ==
[2018-05-30] MEDS ORDERED: IOPAMIDOL-300 50 ML VIAL ONE (14:41)
[2018-05-30] MEDS ORDERED: IOPAMIDOL-300 100 ML VIAL ONE (14:41)
[2018-05-30] MEDS ORDERED: IOPAMIDOL-300 50 ML VIAL PO ONE (16:26)
[2018-05-30] MEDS ORDERED: IOPAMIDOL-300 100 ML VIAL IVP ONE (16:28)
--- NOTE | 2018-05-30 16:44 | CT Report ---
Reason: LEFT LOWER QUADRANT PAIN Procedure Date: 05/30/2018 Accession Number: [id number] / [id number] Procedure: CT - Abdomen/Pelvis W/ CPT Code: FULL RESULT: EXAM: CT ABDOMEN AND PELVIS EXAM DATE: 05/30/2018 04:02 PM. CLINICAL HISTORY: Left low abdominal pain, prior history of small bowel obstruction, left inguinal hernia repair COMPARISONS: 01/10/2015. TECHNIQUE: Routine helical CT imaging was performed through the abdomen and pelvis. IV contrast: 100 ML ISOVUE 300. Enteric contrast: Yes. Reconstructions: Coronal and sagittal. In accordance with CT protocol optimization, one or more of the following dose reduction techniques were utilized for this exam: automated exposure control, adjustment of mA and/or KV based on patient size, or use of iterative reconstructive technique. FINDINGS: Lung Bases: Unremarkable. Liver: There is new diffuse low density without lobular contour changes or masses. Gallbladder/Bile Ducts: Unremarkable. Spleen: Normal. Pancreas: Normal. Adrenal Glands: Normal. Kidneys: No stone, masses or hydronephrosis. Peritoneal Cavity/Bowel: There is colon diverticulosis without diverticulitis. No free fluid, free air or adenopathy. No masses or acute inflammatory process. The appendix is not visualized and no mass or inframammary changes in the right low abdomen seen. Pelvic Organs: The enlarged prostate gland is again seen. The bladder and rectum are within normal limits. Vasculature: No aneurysms or other significant abnormality. Bones: No significant abnormality. Other: Status post left inguinal hernia repair again noted, unremarkable; the small to moderate sized right inguinal hernia combined direct and indirect type containing fat without fat stranding again noted, similar to the prior exam.. IMPRESSION: 1. Interval resolution of the prior dilated small bowel loops. Colon diverticulosis. Negative for new bowel obstruction, bowel inframammary changes or colon diverticulitis. 2. Status post left inguinal hernia repair, unremarkable; interval minimal changes of the small to moderate sized right inguinal hernia combined direct and indirect type containing fat without fat stranding. 3. New mild hepatic steatosis. 4. Again noted is the enlarged prostate gland with unremarkable imaging of the bladder. NOTE: The findings were discussed on phone with Dr. Berna Wang On 05/30/2018 at 4:38 PM. ELEANOR
== END 2018-05-30 14:37 | disposition home or self-care (01) ==
LOC: DI 14:36
PROVIDERS: ATTEND Internal Medicine
DX: K57.30 Diverticulosis of large intestine without perforation or abscess without bleeding (principal); K40.90 Unilateral inguinal hernia, without obstruction or gangrene, not specified as recurrent; K76.0 Fatty (change of) liver, not elsewhere classified; N40.0 Benign prostatic hyperplasia without lower urinary tract symptoms
CPT/HCPCS: 74177; Q9967

== ENCOUNTER 2018-06-01 11:17 | Emergency (ER) | payer MEDICARE, BC ==
[2018-06-01 11:32] VITALS: BP 147/85
[2018-06-01 11:59] LABS: BASOPHILS # (AUTO) 0.1 10^3/uL (0.0-0.1); BASOPHILS % (AUTO) 0.9 %; EOSINOPHILS # (AUTO) 0.1 10^3/uL (0.0-0.7); EOSINOPHILS % (AUTO) 1.8 %; HGB - HEMOGLOBIN 15.2 g/dL (14.0-18.0); LYMPHOCYTES # (AUTO) 1.8 10^3/uL (1.5-3.5); LYMPHOCYTES % (AUTO) 22.4 %; MEAN CORPUSCULAR HEMOGLOBIN 30.6 pg (27.0-31.0); MEAN CORPUSCULAR HGB CONC 34.5 g/dL (32.0-36.0); MEAN CORPUSCULAR VOLUME 88.9 fL (80.0-94.0); MEAN PLATELET VOLUME 8.1 fL (7.4-11.4); MONOCYTES # (AUTO) 0.5 10^3/uL (0.0-1.0); MONOCYTES % (AUTO) 6.6 %; NEUTROPHILS # (AUTO) 5.6 10^3/uL (1.5-6.6); NEUTROPHILS % (AUTO) 68.3 %; PLT - PLATELET COUNT 179 10^3/uL (130-450); RED BLOOD COUNT 4.97 10^6/uL (4.70-6.10); RED CELL DISTRIBUTION WIDTH 13.5 % (12.0-15.0); WHITE BLOOD COUNT 8.3 x10^3/uL (4.8-10.8)
[2018-06-01 12:10] LABS: ALBUMIN 4.6 g/dL (3.2-5.5); BILIRUBIN,TOTAL 0.8 mg/dL (0.2-1.0); CALCIUM 9.1 mg/dL (8.5-10.3); TOTAL PROTEIN 6.9 g/dL (6.7-8.2)
[2018-06-01 12:15] LABS: TROPONIN I < 0.04 ng/mL (<0.49)
[2018-06-01 12:17] LABS: CREATINE KINASE MB 1.4 ng/mL (0.6-6.3)
[2018-06-01] MEDS ORDERED: DEXAMETHASONE 10 MG/ML VIAL PO STA (12:49)
--- NOTE | 2018-06-01 13:09 | ED Physician Documentation ---
History of Present Illness - Stated complaint Stated Complaint: POSS MED REACTION/HIGH BP - Chief complaint Chief Complaint: Ext Problem - History obtained from History obtained from: Patient - History of Present Illness Timing: How many weeks ago (2) - Additonal information Additional information: Previously well 73-year-old male has developed muscle pains in the backs of his thighs and in his groin and anterior abdominal wall. He has been into see his primary care doctor and his assembler handbags about these symptoms and they have done CT scan of his abdomen and pelvis with contrast and an x-ray of his back without obvious abnormality to explain his symptoms. He is taking atorvastatin and this has not been stopped as yet. Review of Systems Constitutional: denies: Fever Eyes: denies: Decreased vision Ears: denies: Ear pain Nose: denies: Congestion Throat: denies: Sore throat Cardiac: denies: Chest pain / pressure, Palpitations Respiratory: denies: Dyspnea, Cough GI: denies: Abdominal Pain, Nausea, Vomiting : denies: Dysuria, Frequency Skin: denies: Rash Musculoskeletal: reports: Extremity pain. denies: Neck pain PD PAST MEDICAL HISTORY - Past Medical History Cardiovascular: Hypertension, High cholesterol, Coronary artery disease Respiratory: Asthma, Pneumonia Endocrine/Autoimmune: HyPOthyroidism GI: GERD : None HEENT: None Psych: Claustrophobia Musculoskeletal: Osteoarthritis Derm: None - Past Surgical History Past Surgical History: Yes General: Appendectomy, Hiatal hernia repair Cardiovascular: Coronary stent - Present Medications Home Medications: Ambulatory Orders Medication Instructions Recorded Confirmed Levothyroxine Sodium 137 mcg PO DAILY 04/13/14 06/18/17 Albuterol Sulfate [Albuterol 1 puffs INH Q6HR 12/23/14 06/18/17 Sulfate Hfa] Atorvastatin [Lipitor] 20 mg PO DAILY 12/25/14 06/18/17 Metoprolol Tartrate 12.5 mg PO BID 12/25/14 06/18/17 Nitroglycerin [Nitrostat] 0.4 mg SL Q5MIN PRN 01/08/17 06/18/17 Cholecalciferol (Vitamin D3) 2,000 unit PO DAILY 06/01/17 06/18/17 [Vitamin D3] Famotidine 20 mg PO BID 06/01/17 06/18/17 Iron,Carbonyl [Iron Chews] 06/18/17 - Allergies Allergies/Adverse Reactions: Allergies Allergy/AdvReac Type Severity Reaction Status Date / Time colchicine AdvReac Anxiety Verified 06/01/18 11:32 - Social History Does the pt smoke?: No Smoking Status: Never smoker Does the pt drink ETOH?: No Does the pt have substance abuse?: No - Immunizations Immunizations are current?: Yes - POLST Patient has POLST: No PD ED PE NORMAL - Vitals Vital signs reviewed: Yes (hypertensive mild ) - General General: Alert and oriented X 3, No acute distress, Well developed/nourished - HEENT HEENT: Atraumatic, PERRL, EOMI - Neck Neck: Supple, no meningeal sign, No bony TTP - Cardiac Cardiac: RRR, No murmur - Respiratory Respiratory: No respiratory distress, Clear bilaterally - Abdomen Abdomen: Soft, Non distended, No organomegaly, Other (There is minimal tenderness along the right abdominal wall and into the inguinal canal. There is no significant mass on valsalva and the epidydimis is without tenderness on the right and there is no testicular mass. ) - Back Back: No CVA TTP, No spinal TTP - Derm Derm: Normal color, Warm and dry, No rash - Extremities Extremities: No deformity, No edema - Neuro Neuro: Alert and oriented X 3, hide and skin classer 2-12 intact, No motor deficit, No sensory deficit, Normal speech Eye Opening: Spontaneous Motor: Obeys Commands Verbal: Oriented GCS Score: 15 - Psych Psych: Normal mood, Normal affect Results - Vitals Vitals: Vital Signs - 24 hr 06/01/18 11:25 Temperature 35.6 C L Heart Rate 69 Respiratory 18 Rate Blood Pressure 147/85 H O2 Saturation 96 Oxygen O2 Source Room air - Labs Labs: Laboratory Tests 06/01/18 06/01/18 06/01/18 11:48 11:48 11:48 WBC 8.3 RBC 4.97 Hgb 15.2 Hct 44.2 MCV 88.9 MCH 30.6 MCHC 34.5 RDW 13.5 Plt Count 179 MPV 8.1 Neut # (Auto) 5.6 Lymph # (Auto) 1.8 [place] # (Auto) 0.5 Eos # (Auto) 0.1 Baso # (Auto) 0.1 Absolute Nucleated RBC 0.00 Nucleated RBC % 0.0 Sodium 136 Potassium 4.0 Chloride 101 Carbon Dioxide 26 Anion Gap 9.0 BUN 18 Creatinine 1.0 Estimated GFR (MDRD) 73 L Glucose 185 H Calcium 9.1 Total Bilirubin 0.8 AST 24 ALT 26 Alkaline Phosphatase 62 Total Creatine Kinase 79 CK-MB (CK-2) 1.4 Troponin I < 0.04 Total Protein 6.9 Albumin 4.6 Globulin 2.3 Albumin/Globulin Ratio 2.0 Lipase 39 PD MEDICAL DECISION MAKING - ED course Complexity details: reviewed old records, reviewed results, re-evaluated patient, considered differential, d/w patient ED course: 73-year-old male with muscle aches down the backs of his legs and into his groin has been on a statin for 3 years. He has had some workup done of this pain he is having including CT of the abdomen pelvis without specific findings and an x- ray of his back. Today he has no evidence of myonecrosis or rhabdomyolysis. He is given a dose of decadron for inflammation and we will stop the atorvastatin. - Sepsis Event Vital Signs: Vital Signs - 24 hr 06/01/18 11:25 Temperature 35.6 C L Heart Rate 69 Respiratory 18 Rate Blood Pressure 147/85 H O2 Saturation 96 Oxygen O2 Source Room air Departure - Departure Disposition: Home, Self Care Clinical Impression: Statin-induced myositis Condition: Stable Instructions: ED Myositis Follow-Up: Tj Wang MD [Primary Care Provider] - Comments: Today your liver and kidney functions are normal and your muscle enzymes are normal. Under these circumstances we recommend that you discontinue the atorvastatin and follow-up with your primary care doctor. We expect some improvement from the dexamethasone we gave you today and this should continue to improve over the next 2 weeks.
== END 2018-06-01 13:20 | disposition home or self-care (01) ==
LOC: ED 11:17
DX: M60.9 Myositis, unspecified (principal); T46.6X5A Adverse effect of antihyperlipidemic and antiarteriosclerotic drugs, initial encounter; I10 Essential (primary) hypertension; I25.10 Atherosclerotic heart disease of native coronary artery without angina pectoris; E78.00 Pure hypercholesterolemia, unspecified; Z95.5 Presence of coronary angioplasty implant and graft
CPT/HCPCS: 36415; 80053; 82550; 82553; 83690; 84484; 85025; 99282; 99283

== ENCOUNTER 2018-08-24 18:34 | Emergency (ER) | payer MEDICARE, BC ==
[2018-08-24 18:43] VITALS: BP 131/63
--- NOTE | 2018-08-24 19:43 | ED Physician Documentation ---
PD HPI WOUND RECHECK - Stated complaint Stated Complaint: CARDIAC CATHS YESTERDAY AND HAS BRUISING - Chief complaint Chief Complaint: Wound - Histroy obtained from History obtained from: Patient, Family - History of Present Illness Location: Other (R wrist angio site, increased bruising today) Timing - onset: Yesterday Pain level max: 3 Pain level now: 3 Associated symptoms: Swelling. No: Fever, Redness Recently seen: Other (cardiac cath yesterday.) Review of Systems Constitutional: denies: Fever Musculoskeletal: denies: Neck pain, Back pain PD PAST MEDICAL HISTORY - Past Medical History Past Medical History: Yes Cardiovascular: Hypertension, High cholesterol, Coronary artery disease Respiratory: Asthma, Pneumonia Neuro: None Endocrine/Autoimmune: HyPOthyroidism GI: GERD : None HEENT: None Psych: Claustrophobia Musculoskeletal: Osteoarthritis Derm: None - Past Surgical History Past Surgical History: Yes General: Appendectomy, Hiatal hernia repair Cardiovascular: Coronary stent - Present Medications Home Medications: Ambulatory Orders Medication Instructions Recorded Confirmed Levothyroxine Sodium 137 mcg PO DAILY 04/13/14 06/18/17 Albuterol Sulfate [Albuterol 1 puffs INH Q6HR 12/23/14 06/18/17 Sulfate Hfa] Metoprolol Tartrate 12.5 mg PO BID 12/25/14 06/18/17 Nitroglycerin [Nitrostat] 0.4 mg SL Q5MIN PRN 01/08/17 06/18/17 Cholecalciferol (Vitamin D3) 2,000 unit PO DAILY 06/01/17 06/18/17 [Vitamin D3] - Allergies Allergies/Adverse Reactions: Allergies Allergy/AdvReac Type Severity Reaction Status Date / Time colchicine AdvReac Anxiety Verified 06/01/18 11:32 nitroglycerin AdvReac Unknown Verified 08/24/18 18:45 - Social History Does the pt smoke?: No Smoking Status: Never smoker Does the pt drink ETOH?: No Does the pt have substance abuse?: No - Immunizations Immunizations are current?: Yes - POLST Patient has POLST: No PD ED PE NORMAL - Vitals Vital signs reviewed: Yes - General General: Alert and oriented X 3, No acute distress - HEENT HEENT: Moist mucous membranes - Neck Neck: Supple, no meningeal sign - Cardiac Cardiac: RRR - Respiratory Respiratory: No respiratory distress, Clear bilaterally - Derm Derm: Warm and dry - Extremities Extremities: Other (mild ecchymosis to the volar aspect of the R wrist. NVI. brisk cap refill. ) - Neuro Neuro: Alert and oriented X 3 Results - Vitals Vitals: Vital Signs - 24 hr 08/24/18 08/24/18 08/24/18 18:36 19:16 19:47 Temperature 36.4 C L Heart Rate 61 Respiratory 15 17 17 Rate Blood Pressure 131/63 H O2 Saturation 99 Oxygen O2 Source Room air PD MEDICAL DECISION MAKING - ED course Complexity details: considered differential, d/w patient, d/w family ED course: Patient presents to the emergency department with ecchymosis to the volar aspect of the right wrist, after his cardiac catheterization yesterday. Appears consistent with the recent cardiac catheterization and does not have any evidence of an acute emergency medical condition at this time. Neurovascular intact. Brisk cap refill. The site in the right groin also appears without any incident at this time. We will continue supportive care and follow-up with his doctor. A light compression bandage was placed with Coban over the right wrist and he will remove this in 30 minutes. Patient and family counseled regarding signs and symptoms for which I believe and urgent re-evaluation would be necessary. Patient with good understanding of and agreement to plan and is comf ortable going home at this time This document was made in part using voice recognition software. While efforts are made to proofread this document, sound alike and grammatical errors may occur. Departure - Departure Disposition: 01 Home, Self Care Clinical Impression: Postoperative hematoma Qualifiers: Surgical complication system/body Area: circulatory system Procedure type: cardiac catheterization Qualified Code(s): I97.630 - Postprocedural hematoma of a circulatory system organ or structure following a cardiac catheterization Condition: Good Instructions: ED Hematoma Follow-Up: Hannah Wang MD [Primary Care Provider] - As Needed Comments: Return if you worsen. This should improve over the next day or so. Remove the coban in 30 mins. Discharge Date/Time: 08/24/18 19:49
== END 2018-08-24 19:49 | disposition home or self-care (01) ==
LOC: ED 18:34
DX: I97.630 Postprocedural hematoma of a circulatory system organ or structure following a cardiac catheterization (principal); Y83.8 Other surgical procedures as the cause of abnormal reaction of the patient, or of later complication, without mention of misadventure at the time of the procedure; I10 Essential (primary) hypertension; E78.00 Pure hypercholesterolemia, unspecified; E03.9 Hypothyroidism, unspecified; I25.10 Atherosclerotic heart disease of native coronary artery without angina pectoris; Z95.5 Presence of coronary angioplasty implant and graft
CPT/HCPCS: 99282; 99283

== ENCOUNTER 2018-12-01 08:58 | Emergency (ER) | payer MEDICARE, BC ==
--- NOTE | 2018-12-01 09:35 | ED Physician Documentation ---
History of Present Illness - Stated complaint Stated Complaint: LT FOOT PAIN - Chief complaint Chief Complaint: Trauma Ext - History obtained from History obtained from: Patient - History of Present Illness Pain level now: 6 - Additonal information Additional information: Patient is a 73-year-old male with history of prostate cancer not currently undergoing chemotherapy, as well has history of gout presenting with isolated left toe pain, swelling, and redness after accidentally tripping and stubbing his toe while in the kitchen 2 days ago. Patient also states that the symptoms are similar to his previous gout attacks. Patient does not take anything for gout preventatively. Patient denies other injuries, as well as any pain within the foot otherwise, as well as ankle, and remainder of left lower extremity.Patient denies any significant change in strength, range of motion, or sensation to the left lower extremity.No particular improving or worsening factors for his symptoms.Patient has been able to bear weight but with assistance of cane. Review of Systems Skin: reports: Other (No abrasions, lacerations, ecchymosis, but swelling and redness to left great toe) Musculoskeletal: reports: Extremity pain, Joint pain Neurologic: denies: Numbness PD PAST MEDICAL HISTORY - Past Medical History Past Medical History: Yes Cardiovascular: Hypertension, High cholesterol, Coronary artery disease Respiratory: Asthma, Pneumonia Neuro: None Endocrine/Autoimmune: HyPOthyroidism GI: GERD : None HEENT: None Psych: Claustrophobia Musculoskeletal: Osteoarthritis, Gout Derm: None - Past Surgical History Past Surgical History: Yes General: Appendectomy, Hiatal hernia repair Cardiovascular: Coronary stent - Present Medications Home Medications: Ambulatory Orders Medication Instructions Recorded Confirmed RX: Levothyroxine Sodium 137 mcg PO DAILY 04/13/14 12/01/18 RX: Albuterol Sulfate [Albuterol 1 puffs INH Q6HR 12/23/14 12/01/18 Sulfate Hfa] RX: Metoprolol Tartrate 12.5 mg PO BID 12/25/14 12/01/18 RX: Nitroglycerin [Nitrostat] 0.4 mg SL Q5MIN PRN 01/08/17 12/01/18 RX: Cholecalciferol (Vitamin D3) 2,000 unit PO DAILY 06/01/17 12/01/18 [Vitamin D3] RX: Aspirin Chewable [St Radames 81 mg PO DAILY 12/01/18 12/01/18 Aspirin] RX: Naproxen 500 mg PO BID 7 Days tablet 12/01/18 Rosuvastatin Calcium [Crestor] 10 mg PO DAILY 12/01/18 12/01/18 - Allergies Allergies/Adverse Reactions: Allergies Allergy/AdvReac Type Severity Reaction Status Date / Time colchicine AdvReac Anxiety Verified 12/01/18 09:12 nitroglycerin AdvReac Unknown Verified 12/01/18 09:12 - Social History Does the pt smoke?: No Smoking Status: Never smoker Does the pt drink ETOH?: No Does the pt have substance abuse?: No - Immunizations Immunizations are current?: Yes - POLST Patient has POLST: No PD ED PE NORMAL - General General: Alert and oriented X 3, No acute distress, Well developed/nourished - HEENT HEENT: Atraumatic - Cardiac Cardiac: Strong equal pulses (Cap refill brisk) - Respiratory Respiratory: No respiratory distress - Derm Derm: Warm and dry, No rash, Other (Left great toe swollen and red without ecchymosis or other skin changes) - Extremities Extremities: No deformity, No tenderness to palpate, Other (Tenderness over swelling of left great toe but no other tenderness or deformity to remainder of left lower extremity. Normal range of motion in left lower extremity present.) - Neuro Neuro: No motor deficit, No sensory deficit - Psych Psych: Normal mood, Normal affect Results - Vitals Vitals: Vital Signs - 24 hr 12/01/18 12/01/18 09:09 11:46 Temperature 36.4 C L 36.3 C L Heart Rate 79 68 Respiratory 14 20 Rate Blood Pressure 129/65 115/65 O2 Saturation 99 98 Oxygen O2 Source Room air PD MEDICAL DECISION MAKING - ED course Complexity details: re-evaluated patient, considered differential, d/w patient, d/w family ED course: Most concerning for traumatic injury of sprain or fracture given inciting incident. Also have concern for gout given history of gout and appearance of toe. Do not find evidence of other skin conditions That would indicate infection or other complication. Do not have high suspicion for joint complication, DVT, or other significant pathology. Plain films obtained which did not find evidence of fracture. At this time, feel appropriate to treat with naproxen, addressing both gout and possible toe sprain.Advised patient and family of results and recommendations I discussed use of naproxen versus other medications, as well as supportive cares, return precautions, need for follow- up. Patient voiced understanding and is comfortable with discharge plan. Departure - Departure Disposition: 01 Home, Self Care Clinical Impression: Toe pain Qualifiers: Laterality: left Qualified Code(s): M79.675 - Pain in left toe(s) Gout Qualifiers: Gout site: toe Gout etiology: unspecified cause Chronicity: chronic Laterality: left Presence of tophus: without tophus Qualified Code(s): M1A.9XX0 - Chronic gout, unspecified, without tophus (tophi) Condition: Good Instructions: Gout, ED Sprain Toe Prescriptions: RX: Naproxen 500 mg PO BID 7 Days tablet Comments: Recommend rest, elevation, ice application and use of naproxen for both treatment of possible toe sprain and gout attack. Please continue all home medications as previously indicated. Please follow-up with primary care physician in next 2-3 days and return to ED sooner if expands worsening symptoms or other concerns. Discharge Date/Time: 12/01/18 11:48
--- NOTE | 2018-12-01 10:56 | XRAY Report ---
Reason: pain L foot. pain/ swelling Procedure Date: 12/01/2018 Accession Number: [id number] / [id number] Procedure: XR - Foot 3 View LT CPT Code: FULL RESULT: EXAM: LEFT FOOT RADIOGRAPHY 3 VIEWS EXAM DATE: 12/01/2018. CLINICAL HISTORY: Left foot pain and swelling. COMPARISON: 06/27/2011.. TECHNIQUE: AP, oblique and lateral views. FINDINGS: Bones: No fracture or other acute abnormality. Mild hallux valgus and bunion. Small posterior plantar calcaneal spur and small traction spur at the insertion of the Achilles tendon. Joints: No dislocation. Soft Tissues: Normal. No soft tissue swelling. IMPRESSION: No acute bone or joint abnormality. Mild hallux valgus and bunion. Small posterior calcaneal spurs. [facility]
[2018-12-01 11:46] VITALS: BP 115/65
== END 2018-12-01 11:48 | disposition home or self-care (01) ==
LOC: ED 08:58
DX: M1A.0720 Idiopathic chronic gout, left ankle and foot, without tophus (tophi) (principal); M79.675 Pain in left toe(s); S99.922A Unspecified injury of left foot, initial encounter; W22.09XA Striking against other stationary object, initial encounter; Y92.000 Kitchen of unspecified non-institutional (private) residence as the place of occurrence of the external cause; I10 Essential (primary) hypertension; Z85.46 Personal history of malignant neoplasm of prostate; Z79.82 Long term (current) use of aspirin
CPT/HCPCS: 99283

== ENCOUNTER 2019-03-14 15:50 | Outpatient (CLI) | payer MEDICARE, BC ==
--- NOTE | 2019-03-14 16:37 | CT Report ---
Reason: HEADACHE, NAUSEA, OTHER ABNORMALITIES OF GAIT AND Procedure Date: 03/14/2019 Accession Number: [id number] / [id number] Procedure: CT - HEAD WO CPT Code: FULL RESULT: EXAM: CT HEAD EXAM DATE: 03/14/2019 04:13 PM. CLINICAL HISTORY: HEADACHE, NAUSEA, OTHER ABNORMALITIES OF GAIT AND. COMPARISON: None. TECHNIQUE: Multiaxial CT images were obtained from the foramen magnum to the vertex. Reformats: Sagittal and coronal. IV contrast: None. In accordance with CT protocol optimization, one or more of the following dose reduction techniques were utilized for this exam: automated exposure control, adjustment of mA and/or KV based on patient size, or use of iterative reconstructive technique. FINDINGS: Parenchyma: No intraparenchymal hemorrhage. No evidence of mass, midline shift. Avina-white differentiation is distinct. Extraaxial Spaces: Basal cisterns are patent. No subdural or epidural collections identified. Ventricles: Normal in size and position. Sinuses and Orbits: Imaged paranasal sinuses, orbits, and mastoids show no significant abnormality. Bones: No evidence of fracture or calvarial defect. Other: None. IMPRESSION: No acute intracranial abnormality. [facility]
== END 2019-03-14 15:51 | disposition home or self-care (01) ==
LOC: DI 15:50
PROVIDERS: ATTEND Internal Medicine
DX: R51 Headache (principal); R26.89 Other abnormalities of gait and mobility; R11.0 Nausea
CPT/HCPCS: 70450

== ENCOUNTER 2019-03-27 11:50 | Outpatient (CLI) | payer MEDICARE, BC ==
--- NOTE | 2019-03-27 12:17 | XRAY Report ---
Reason: NON HEALING ABSCESS Procedure Date: 03/27/2019 Accession Number: [id number] / [id number] Procedure: XR - Wrist 4 View RT CPT Code: FULL RESULT: EXAM: RIGHT WRIST RADIOGRAPHY EXAM DATE: 03/27/2019 12:01 PM. CLINICAL HISTORY: NON HEALING ABSCESS. Fall on outstretched hand 3 weeks ago. Radial side pain. COMPARISON: MRI RIGHT WRIST 01/02/2011 8:14 AM. TECHNIQUE: 4 views. FINDINGS: Bones: Normal. No fractures or bone lesions. No periosteal reaction. Joints: No subluxation or dislocation. There is moderate joint space narrowing and marginal osteophyte formation at the first carpometacarpal joint. Soft Tissues: Unremarkable. No focal soft tissue swelling appreciated. IMPRESSION: 1. No acute or healing fracture identified. 2. Moderate degenerative osteoarthritis at the wrist carpometacarpal joint. [facility] The call report notification system was initiated by Dr. Balaji Orourke at 12:15 PM on 03/27/2019. ADDENDUM: 03/27/19 12:21 The above call report findings were discussed with Elise Bates by Dr. Balaji Orourke at 12:21 PM on 03/27/2019.
== END 2019-03-27 11:51 | disposition home or self-care (01) ==
LOC: DI 11:50
PROVIDERS: ATTEND Internal Medicine
DX: M19.031 Primary osteoarthritis, right wrist (principal)

== ENCOUNTER 2019-05-02 07:28 | Outpatient (CLI) | payer MEDICARE, BC ==
[2019-05-02 07:42] LABS: BASOPHILS # (AUTO) 0.1 10^3/uL (0.0-0.1); BASOPHILS % (AUTO) 0.8 %; EOSINOPHILS # (AUTO) 0.2 10^3/uL (0.0-0.7); EOSINOPHILS % (AUTO) 3.3 %; HGB - HEMOGLOBIN 15.4 g/dL (14.0-18.0); LYMPHOCYTES # (AUTO) 1.2 10^3/uL (1.5-3.5); LYMPHOCYTES % (AUTO) 19.5 %; MEAN CORPUSCULAR HGB CONC 33.3 g/dL (32.0-36.0); MEAN CORPUSCULAR VOLUME 89.9 fL (80.0-94.0); MEAN PLATELET VOLUME 9.3 fL (7.4-11.4); MONOCYTES # (AUTO) 0.6 10^3/uL (0.0-1.0); MONOCYTES % (AUTO) 9.7 %; NEUTROPHILS % (AUTO) 66.4 %; PLT - PLATELET COUNT 130 10^3/uL (130-450); RED BLOOD COUNT 5.14 10^6/uL (4.70-6.10); RED CELL DISTRIBUTION WIDTH 13.5 % (12.0-15.0)
[2019-05-02 08:07] LABS: ALBUMIN 4.4 g/dL (3.2-5.5); ALBUMIN/GLOBULIN RATIO 1.7 (1.0-2.2); ALKALINE PHOSPHATASE 59 IU/L (42-121); ALT ALANINE AMINOTRANSFERASE 27 IU/L (10-60); AST ASPARTATE AMINOTRANSFERASE 19 IU/L (10-42); BUN - BLOOD UREA NITROGEN 15 mg/dL (6-20); CALCIUM 9.4 mg/dL (8.5-10.3); CARBON DIOXIDE - CO2 29 mmol/L (21-32); CHLORIDE 104 mmol/L (101-111); CHOL/HDL RATIO 3.4 (<5.0); CHOLESTEROL 119 mg/dL; CK- CREATINE KINASE 51 IU/L (22-269); CREATININE 1.1 mg/dL (0.6-1.2); GFR - MDRD 66 (>89); GLUCOSE 104 mg/dL (70-100); HDL CHOLESTEROL 35 mg/dL; LDL CHOLESTEROL,CALCULATED 52 mg/dL; LDL/HDL RATIO 1.5 (<3.6); SODIUM 144 mmol/L (135-145); VLDL CHOLESTEROL 32 mg/dL
[2019-05-03 14:11] LABS: HEPATITIS C ANTIBODY REACTIVE (NON-REACTIVE)
[2019-05-06 19:17] LABS: HCV RNA QNT <1.18 NOT DETECTED Log IU/mL (NOT DETECTED); HCV RNA QUANT RT PCR <15 NOT DETECTED IU/mL (NOT DETECTED)
== END 2019-05-02 07:29 | disposition home or self-care (01) ==
LOC: LAB 07:28
PROVIDERS: ATTEND Internal Medicine
DX: E03.9 Hypothyroidism, unspecified (principal); E78.5 Hyperlipidemia, unspecified; C61 Malignant neoplasm of prostate; I25.10 Atherosclerotic heart disease of native coronary artery without angina pectoris; R68.89 Other general symptoms and signs; M19.90 Unspecified osteoarthritis, unspecified site; J45.909 Unspecified asthma, uncomplicated; F07.81 Postconcussional syndrome; Z79.899 Other long term (current) drug therapy
CPT/HCPCS: 36415; 80053; 80061; 82550; 83721; 84443; 85025; 86803

== ENCOUNTER 2019-05-16 18:31 | Emergency (ER) | payer MEDICARE, BC ==
[2019-05-16] MEDS ORDERED: KETOROLAC 30 MG/ML VIAL IVP STA (18:51)
[2019-05-16] MEDS ORDERED: ONDANSETRON 4 MG/2 ML VIAL IVP STA (18:51)
[2019-05-16] MEDS ORDERED: HYDROmorphone 1 MG/ML CARPUJECT IVP STA (18:51)
--- NOTE | 2019-05-16 18:52 | ED Physician Documentation ---
PD HPI ABD PAIN - Stated complaint Stated Complaint: POST RADIATION ABD PX/NAUSEA - Chief complaint Chief Complaint: Abd Pain - History obtained from History obtained from: Patient - History of Present Illness Timing - onset: Today (74-year-old gentleman who is undergoing prostate cancer with radiation therapy. He had his 35th round of radiation therapy today. Has not had any significant side effects except for some skin burning with the first episode of radiation therapy. About 40 minutes ago developed sudden onset severe right lower quadrant pain with nausea and dry heaves. He had a normal b owel movement this morning. Normally urine output without complaints there. He has a history of an appendectomy. Colonic perforation treated conservatively after colonoscopy but requiring transfusion. He also had a hernia. No history of kidney stones.) Review of Systems Ten Systems: 10 systems reviewed and negative Constitutional: denies: Fever, Chills Cardiac: denies: Chest pain / pressure, Palpitations Respiratory: denies: Dyspnea, Cough PD PAST MEDICAL HISTORY - Past Medical History Cardiovascular: Hypertension, High cholesterol, Coronary artery disease Respiratory: Asthma, Pneumonia Neuro: None Endocrine/Autoimmune: HyPOthyroidism GI: GERD : None HEENT: None Psych: Claustrophobia Musculoskeletal: Osteoarthritis, Gout Derm: None - Past Surgical History Past Surgical History: Yes General: Appendectomy, Hiatal hernia repair Cardiovascular: Coronary stent - Present Medications Home Medications: Ambulatory Orders Medication Instructions Recorded Confirmed Levothyroxine Sodium 137 mcg PO DAILY 04/13/14 12/01/18 Albuterol Sulfate [Albuterol 1 puffs INH Q6HR 12/23/14 12/01/18 Sulfate Hfa] Metoprolol Tartrate 12.5 mg PO BID 12/25/14 12/01/18 Nitroglycerin [Nitrostat] 0.4 mg SL Q5MIN PRN 01/08/17 12/01/18 Cholecalciferol (Vitamin D3) 2,000 unit PO DAILY 06/01/17 12/01/18 [Vitamin D3] Aspirin Chewable [St Radames 81 mg PO DAILY 12/01/18 12/01/18 Aspirin] Rosuvastatin Calcium [Crestor] 10 mg PO DAILY 12/01/18 12/01/18 - Allergies Allergies/Adverse Reactions: Allergies Allergy/AdvReac Type Severity Reaction Status Date / Time colchicine AdvReac Anxiety Verified 12/01/18 09:12 nitroglycerin AdvReac Unknown Verified 12/01/18 09:12 - Social History Does the pt smoke?: No Smoking Status: Never smoker Does the pt drink ETOH?: No Does the pt have substance abuse?: No - Immunizations Immunizations are current?: Yes - POLST Patient has POLST: No PD ED PE NORMAL - Vitals Vital signs reviewed: Yes - General General: Alert and oriented X 3 (He appears uncomfortable) - HEENT HEENT: PERRL, EOMI - Neck Neck: Supple, no meningeal sign, No bony TTP - Cardiac Cardiac: RRR, No murmur - Respiratory Respiratory: No respiratory distress, Clear bilaterally - Abdomen Abdomen: Normal bowel sounds, Soft, Other (Minimal right lower quadrant tenderness without surgical signs, no flank tenderness.) - Back Back: No CVA TTP, No spinal TTP - Derm Derm: Normal color - Neuro Neuro: Alert and oriented X 3, No motor deficit, No sensory deficit, Normal speech Results - Vitals Vitals: Vital Signs - 24 hr 05/16/19 05/16/19 18:37 19:46 Temperature 36.7 C Heart Rate 60 68 Respiratory 18 16 Rate Blood Pressure 146/90 H 129/77 O2 Saturation 100 97 Oxygen O2 Source Room air - Labs Labs: Laboratory Tests 05/16/19 05/16/19 05/16/19 18:58 18:58 19:02 WBC 5.6 RBC 4.73 Hgb 14.1 Hct 42.6 MCV 90.1 MCH 29.8 MCHC 33.1 RDW 13.9 Plt Count 124 L MPV 9.5 Neut # (Auto) 3.4 Lymph # (Auto) 1.2 L [place] # (Auto) 0.8 Eos # (Auto) 0.2 Baso # (Auto) 0.1 Absolute Nucleated RBC 0.00 Nucleated RBC % 0.0 Sodium 142 Potassium 4.0 Chloride 107 Carbon Dioxide 27 Anion Gap 8.0 BUN 22 H Creatinine 1.1 Estimated GFR (MDRD) 66 L Glucose 111 H Calcium 8.8 Total Bilirubin 0.9 AST 20 ALT 27 Alkaline Phosphatase 50 Total Protein 6.6 L Albumin 4.0 Globulin 2.6 Albumin/Globulin Ratio 1.5 Lipase 31 Urine Color YELLOW Urine Clarity CLEAR Urine pH 5.5 Ur Specific [place] >=1.030 H Urine Protein NEGATIVE Urine Glucose (UA) NEGATIVE Urine Ketones NEGATIVE Urine Occult Blood NEGATIVE Urine Nitrite NEGATIVE Urine Bilirubin NEGATIVE Urine Urobilinogen 0.2 (NORMAL) Ur Leukocyte Esterase NEGATIVE Ur Microscopic Review NOT INDICATED Urine Culture Comments NOT INDICATED - Rads (name of study) CT A/P Radiology: EMP read contemporaneously (2mm R UVJ stone) PD MEDICAL DECISION MAKING - ED course ED course: 74-year-old gentleman with acute onset right lower quadrant pain proven to be due to a small right ureteral stone. He was pain-free here after Toradol. Of note he was very hesitant to take narcotic pain medication and really did not want a prescription. Departure - Departure Disposition: 01 Home, Self Care Clinical Impression: Ureteral calculus, right Condition: Good Record reviewed to determine appropriate education?: Yes Instructions: ED Stone Renal W Colic Comments: Call your doctor to arrange a follow-up appointment, make the next available appointment. In the interim, return anytime if worse or if new symptoms develop.
[2019-05-16 19:03] LABS: BASOPHILS # (AUTO) 0.1 10^3/uL (0.0-0.1); BASOPHILS % (AUTO) 0.9 %; EOSINOPHILS # (AUTO) 0.2 10^3/uL (0.0-0.7); HGB - HEMOGLOBIN 14.1 g/dL (14.0-18.0); LYMPHOCYTES # (AUTO) 1.2 10^3/uL (1.5-3.5); LYMPHOCYTES % (AUTO) 21.1 %; MEAN CORPUSCULAR HEMOGLOBIN 29.8 pg (27.0-31.0); MEAN CORPUSCULAR HGB CONC 33.1 g/dL (32.0-36.0); MEAN CORPUSCULAR VOLUME 90.1 fL (80.0-94.0); MEAN PLATELET VOLUME 9.5 fL (7.4-11.4); MONOCYTES # (AUTO) 0.8 10^3/uL (0.0-1.0); MONOCYTES % (AUTO) 13.6 %; NEUTROPHILS # (AUTO) 3.4 10^3/uL (1.5-6.6); NEUTROPHILS % (AUTO) 61.2 %; PLT - PLATELET COUNT 124 10^3/uL (130-450); RED BLOOD COUNT 4.73 10^6/uL (4.70-6.10); RED CELL DISTRIBUTION WIDTH 13.9 % (12.0-15.0); WHITE BLOOD COUNT 5.6 x10^3/uL (4.8-10.8)
[2019-05-16 19:07] LABS: BILIRUBIN,URINE NEGATIVE (NEGATIVE); GLUCOSE, URINE (UA) NEGATIVE (NEGATIVE); KETONES,URINE (UA) NEGATIVE (NEGATIVE); LEUKOCYTE ESTERASE, URINE NEGATIVE (NEGATIVE); NITRITE,URINE NEGATIVE (NEGATIVE); OCCULT BLOOD,URINE NEGATIVE (NEGATIVE); PH,URINE 5.5 PH (5.0-7.5); PROTEIN,URINE NEGATIVE (NEGATIVE); UROBILINOGEN,URINE 0.2 (NORMAL) E.U./dL (NORMAL)
[2019-05-16 19:11] LABS: CLARITY,URINE CLEAR (CLEAR)
[2019-05-16 19:16] LABS: ALBUMIN/GLOBULIN RATIO 1.5 (1.0-2.2); BILIRUBIN,TOTAL 0.9 mg/dL (0.2-1.0); CALCIUM 8.8 mg/dL (8.5-10.3); CREATININE 1.1 mg/dL (0.6-1.2); TOTAL PROTEIN 6.6 g/dL (6.7-8.2)
[2019-05-16] MEDS ORDERED: IOVERSOL 320 100 ML VIAL IVP ONE ×2 (19:32→19:46)
--- NOTE | 2019-05-16 20:17 | CT Report ---
Reason: RLQ pain, IV only Procedure Date: 05/16/2019 Accession Number: [id number] / [id number] Procedure: CT - Abdomen/Pelvis W CPT Code: FULL RESULT: EXAM: CT ABDOMEN AND PELVIS EXAM DATE: 05/16/2019 07:43 PM. CLINICAL HISTORY: Right lower quadrant pain, IV only. COMPARISONS: ABDOMEN/PELVIS W/ 05/30/2018 4:02 PM. TECHNIQUE: Routine helical CT imaging was performed through the abdomen and pelvis. IV contrast: Yes . Enteric contrast: No . Reconstructions: Coronal and sagittal. In accordance with CT protocol optimization, one or more of the following dose reduction techniques were utilized for this exam: automated exposure control, adjustment of mA and/or KV based on patient size, or use of iterative reconstructive technique. FINDINGS: Lung Bases: Unremarkable. Liver: Tiny probable right liver cyst. No suspicious masses. Gallbladder/Bile Ducts: Small calcified gallstone, otherwise unremarkable. Spleen: Unremarkable. Pancreas: Unremarkable. Adrenal Glands: Unremarkable. Kidneys: Approximately 2 mm nonobstructing right UVJ region stone. No suspicious masses or hydronephrosis. Peritoneal Cavity/Bowel: No bowel obstruction or inflammatory process seen. No free air or significant free fluid. No masses or adenopathy. The appendix is not seen, but there is no evidence of appendicitis. No excessive stool burden. Pelvic Organs: Prostate appears to have been removed. Bladder unremarkable with the exception of the aforementioned right UVJ region stone. Vasculature: Moderate atherosclerotic disease of the aorta and branches. No aneurysm seen. Bones: No significant abnormality. Other: Previous left inguinal hernia repair. IMPRESSION: 1. Approximately 2 mm nonobstructing right UVJ region stone. 2. Cholelithiasis. 3. Moderate atherosclerotic disease of the aorta and branches. [facility]
[2019-05-16 20:42] VITALS: BP 136/68
[2019-05-16] MEDS ORDERED: HYDROcod/ACET 5/325 Prepack 4 PO STA (20:47)
== END 2019-05-16 20:41 | disposition home or self-care (01) ==
LOC: ED 18:31
DX: N20.1 Calculus of ureter (principal); I10 Essential (primary) hypertension
CPT/HCPCS: 36415; 74177; 80053; 81003; 83690; 85025; 96374; 99284; Q9967; 81001; 87086

== ENCOUNTER 2019-06-20 12:19 | Outpatient (CLI) | payer MEDICARE, BC | END 2019-06-20 12:20 | disposition home or self-care (01) | LOC: LAB 12:19 | PROVIDERS: ATTEND Urology | DX: C61 Malignant neoplasm of prostate (principal) | CPT/HCPCS: 36415; 84153 ==

== ENCOUNTER 2019-08-18 07:26 | Outpatient (CLI) | payer MEDICARE, BC | END 2019-08-18 07:27 | disposition home or self-care (01) | LOC: LAB 07:26 | PROVIDERS: ATTEND Urology | DX: C61 Malignant neoplasm of prostate (principal) | CPT/HCPCS: 36415; 84153 ==

== ENCOUNTER 2019-08-22 08:36 | Outpatient (CLI) | payer MEDICARE, BC ==
[2019-08-22 08:59] LABS: BASOPHILS # (AUTO) 0.1 10^3/uL (0.0-0.1); EOSINOPHILS # (AUTO) 0.2 10^3/uL (0.0-0.7); EOSINOPHILS % (AUTO) 2.7 %; HGB - HEMOGLOBIN 15.3 g/dL (14.0-18.0); LYMPHOCYTES # (AUTO) 1.3 10^3/uL (1.5-3.5); LYMPHOCYTES % (AUTO) 22.1 %; MEAN CORPUSCULAR HEMOGLOBIN 30.5 pg (27.0-31.0); MEAN CORPUSCULAR HGB CONC 33.6 g/dL (32.0-36.0); MEAN CORPUSCULAR VOLUME 90.6 fL (80.0-94.0); MEAN PLATELET VOLUME 9.7 fL (7.4-11.4); MONOCYTES # (AUTO) 0.5 10^3/uL (0.0-1.0); MONOCYTES % (AUTO) 9.2 %; NEUTROPHILS # (AUTO) 3.8 10^3/uL (1.5-6.6); NEUTROPHILS % (AUTO) 64.7 %; PLT - PLATELET COUNT 149 10^3/uL (130-450); RED BLOOD COUNT 5.02 10^6/uL (4.70-6.10); RED CELL DISTRIBUTION WIDTH 12.5 % (12.0-15.0); WHITE BLOOD COUNT 5.9 x10^3/uL (4.8-10.8)
[2019-08-22 09:04] LABS: ALBUMIN 4.5 g/dL (3.2-5.5); BILIRUBIN,TOTAL 0.9 mg/dL (0.2-1.0); CALCIUM 9.1 mg/dL (8.5-10.3); TOTAL PROTEIN 6.8 g/dL (6.7-8.2)
[2019-08-22 09:35] LABS: THYROID STIMULATING HORMONE 3.26 uIU/mL (0.34-5.60)
[2019-08-22 09:37] LABS: FREE T4 (FREE THYROXINE) 1.04 ng/dL (0.58-1.64)
== END 2019-08-22 08:37 | disposition home or self-care (01) ==
LOC: LAB 08:36
PROVIDERS: ATTEND Internal Medicine
DX: R06.09 Other forms of dyspnea (principal); R61 Generalized hyperhidrosis; R07.89 Other chest pain
CPT/HCPCS: 36415; 80053; 81599; 84402; 84403; 84439; 84443; 85025

== ENCOUNTER 2019-10-30 13:40 | Outpatient (CLI) | payer MEDICARE, BC ==
--- NOTE | 2019-10-30 14:48 | CONSULTATION NOTE ---
Palliative Care Consultation - Referral Referring Provider: Dr. Ron Ortiz Time of Visit: [id number] Referral setting: [facility] [place] Referral Reason: Prostate Cancer/CAD/Postconcussin syndrome/Goals of Care - Information Sources Records reviewed: Previous records reviewed History/Review of Systems obtained from: Patient, Family ( Radha) Exam limitations: No limitations - History of Present Illness Brief History of Present Illness: This is a 74-year-old gentleman who is quite concerned about his prostate cance r, his cancer staging is a pT3 apN0 cM0, he received a prostatectomy, PLND on 09/05/2018. At that time his MRI/bone scan showed no evidence of disease. He he did have positive margins though, and completed salvage radiation therapy targeting the prostate fossa and completed on 05/23/2019. His biggest concern is his evidence of rising PSA, and concern about further treatment interventions, and how best to make those decisions. He is due for his upcoming PSA, and the threshold of 1.8 or greater, with the hope to reflux to an Axumin PET to provide more information. Patient's complicating factors include his underlying cardiac disease. He originally had an anterior ST elevation NV, in 2014 was treated with a stent, at that point time his ejection fraction was 25 to 30%. He did have a recent cath and 08/27/2018 that did show stable CAD. He has not had any recent changes to his medications, though has been suffering with persistent night sweats and ongoing fatigue. He does work hard to maximize his cardiac health and maintains an active exercise program. His most impactful quality of life issue, actually is his postconcussion syndrome, which occurred in April 2019, with a head injury right to the forehead. He is continued to suffer from headache, word finding, and has not actually been able to connect with the neurologist due to a series of unfortunate events, and has a pending visit. He has been doing physical therapy for postconcussion through [facility] in [place], but is anxious to get more information. His goals for palliative care, are to assist with support regarding goals of care, treatment decision making, and further advance care planning. The focus of this appointment is to establish rapport, focus on quality of life issues, counseling provided regarding continuum of oncology care. Medical/Surgical History - Past Medical History Cardiovascular: reports: Hypertension, High cholesterol, Coronary artery disease, NV, Other (cardiomyopathy) Respiratory: reports: Asthma, Pneumonia Neuro: Head injury (post concussion syndrome), Headaches, Tremors Endocrine/Autoimmune: reports: HyPOthyroidism GI: reports: GERD : reports: Incontinence (mild), Nocturia, Frequency, Other (prostate cancer) HEENT: reports: None Psych: reports: Anxiety, Claustrophobia Musculoskeletal: reports: Osteoarthritis, Gout Derm: reports: None MRSA Hx?: No - Past Surgical History General: reports: Appendectomy, Hiatal hernia repair, Other (prostatectomy 08/2018) Cardiovascular: reports: Coronary stent - Substance History Use: Uses substance without health or social issues: Tobacco (smoked pipe; quit 1971), Other (no hx etoh or rec drugs) Social History - Living Situation Living arrangement: At home Living Situation: With spouse/s.o. Support System: Patient lives with his wan Radha, who herself is a psychologist. 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 They do have 2 sons who are actively supportive, sadly has a daughter who is estranged. They have a granddaughter with 2 young children who are currently living in their guest house, the children are 6 and 1-1/2 and have added to their enjoyment. Family History - Family History Family History: Mother: , Alcoholism, COPD/Emphysema ( at 76 of emphasema), Father: , CAD, Cancer (throat), CVA/TIA ( of stroke 84), Diabetes, Type 2, Brother: Alive and Well (daugher), CAD, Other family: Alive and Well, Alcoholism Medications/Allergies - Medications Home Medications: Ambulatory Orders Medication Instructions Recorded Confirmed Levothyroxine Sodium 137 mcg PO DAILY 04/13/14 11/02/19 Albuterol Sulfate [Albuterol 1 puffs INH Q6HR 12/23/14 11/02/19 Sulfate Hfa] Metoprolol Tartrate 12.5 mg PO BID 12/25/14 11/02/19 Nitroglycerin [Nitrostat] 0.4 mg SL Q5MIN PRN 01/08/17 11/02/19 Cholecalciferol (Vitamin D3) 2,000 unit PO DAILY 06/01/17 11/02/19 [Vitamin D3] Aspirin Chewable [St Radames 81 mg PO DAILY 12/01/18 11/02/19 Aspirin] Rosuvastatin Calcium [Crestor] 10 mg PO DAILY 12/01/18 11/02/19 Lisinopril [Zestril] 2.5 mg PO DAILY 11/02/19 11/02/19 - Allergies Allergies/Adverse Reactions: Allergies Allergy/AdvReac Type Severity Reaction Status Date / Time nitroglycerin AdvReac Severe Unknown Verified 11/02/19 08:39 colchicine AdvReac Unknown Verified 11/02/19 08:39 lactose AdvReac Nausea Verified 11/02/19 08:40 Review of Systems - Constitutional Constitutional: reports: Fatigue, Night sweats, Weight loss (with change in diet 5-6 pounds) - Eyes Eyes: reports: Corrective lenses - Ears, Nose & Throat Ears, Nose & Throat: reports: Ear pain, Hearing loss, Tinnitus, Nosebleeds, Sore throat, Hoarseness, Mouth lesions - Cardiovascular Cardiovascular: reports: Chest pain (pressure), Exertional dyspnea, Decr. exercise tolerance, Other (varicose veins) - Respiratory Respiratory: reports: SOB with exertion. denies: SOB at rest - Gastrointestinal Gastrointestinal: reports: Nausea, Good appetite - Genitourinary Genitourinary: reports: Frequency, Urgency, Incontinence (occasional) - Musculoskeletal Musculoskeletal: reports: Muscle aches, Muscle weakness, Joint pain, Joint swelling - Neurological Neurological: reports: Headache (post concussion syndrome), Numbness, Memory problems (word finding), Abnormal gait, Other (tremors benign left hand) - Psychiatric Psychiatric: reports: Anxiety - Endocrine Endocrine: reports: Hypothyroidism, Intolerance to cold - All Other Systems All Other Systems: reports: Reviewed and negative Physical Exam - Vital Signs Temperature: 36.4 C Pulse Rate: 58 Respiratory Rate: 16 O2 Saturation: 97 (ra @ rest) Blood Pressure: 131/75 - Physical Exam General Appearance: positive: Alert, Anxious (mild) Eyes Bilateral: positive: Normal inspection ENT: positive: No signs of dehydration Neck: positive: Trachea midline Cardiovascular: positive: Regular rate & rhythm Respiratory: positive: No respiratory distress, Breath sounds nml. negative: Wheezes, Rales, Rhonchi Abdomen: positive: Non-tender, Soft, Nml bowel sounds Skin: positive: Dryness Extremities: positive: No pedal edema Neurologic/Psychiatric: positive: Oriented x3, Mood/affect nml Palliative Care - POLST Patient has POLST: No POLST Status: Full Code Pain: Pain worsening, Location (Patient's pain actually mostly stems from his postconcussion syndrome, with persistent headache, fluctuating in severity, today rates it a 6 out of 10. He also day identifies back, foot shoulder pain related to osteoarthritis. He is still awaiting neurology appointment on 07/07.) Tiredness/Fatigue: Moderate (4-6) Drowsiness/Sedation: Moderate (4-6) (easily drops off to sleep) Nausea: Mild (1-3) Anorexia: Mild (1-3), Weight loss (attributes also to better food choices) Dyspnea: Mild (1-3) Depression: Mild (1-3) Anxiety: Moderate (4-6) (Patient's anxiety is related to his climbing PSA, and certainly. Has multiple questions regarding the what if's and future treatment options. 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 He has been working with her daron is physical therapy related to his postconcussion syndrome. He also is active on the treadmill 5 times a week for about 30 minutes. He tries to live an active lifestyle, but is limited by his fatigue, his postconcussion syndrome, and has found some functional decline. He has in the past participated in cardiac rehab which he found helpful. - Palliative Care Discussion: Patient admits that at baseline, he is quite anxious, that has been difficult regarding his waiting period for his PSA. The stressors of surgery, followed up with radiation and now and though waiting time has him worried about the future. Wondering about hormonal therapy versus chemotherapy, how to make best good choices. Patient's biggest concerns is he does not want to be a burden, particularly in loss of independence, and worried about his and family. Patient has strong feelings about not wanting to be "a victim of drugs", is very risk adverse to taking medications. He does admit to significant sadness and fear, does try and distract and resend her himself. Does have good social support. He does feel confident in his current health care team, does have pending visits in with neurology, cardiology, and oncology. He does understand the severity of his cardiacs issues, more likely will outweigh his prostate cancer in the issue of survival. His biggest quality of life issue though, is actually the sequela from his postconcussion syndrome with altered cognitive changes and persistent pain. Patient does have D POA with his Radha Weiss as primary and son Jesus Weiss as follow up. His advanced directive does designate if he was in a terminal or permanent conscious condition he does not want artificially per divided nutrition or hydration, and is willing to be an organ donor. Given his level of anxiety and still unknown treatment plan, agreed to revisit honing in and clarifying further goals of care regarding end-of-life when more information is available. Patient short-term goals, are try to remain distracted and focus on wellbeing. They do have a family gathering this weekend, with multiple players coming and he is expecting many questions. Counseling provided regarding the spectrum of continuum of care for cancer treatment, he is getting much pressure for "clinical trials". Discussed in the context of targeted/immunotherapy, those are quite select, but the newer treatments out for prostate cancer have come from recent clinical trials and that often prostate cancer becomes a disease to be managed not necessarily a disease that leads to an imminent decline. Discussed also the role of second opinions, and referred back to oncologist as primary source for referrals and treatment options. Results - Lab Results Lab results reviewed: Yes Impression and Recommendations - Palliative Care Impression: This is a wan 74-year-old gentleman who has a constellation of complex symptoms and comorbidities. He presents with prostate cancer in the setting of rising PSA s/p surgery and radiation, CAD with known severe cardiomyopathy as/P stents 6, and postconcussion syndrome with persistent headaches and cognitive changes. Palliative care to provide support regarding symptom management, anti cipatory guidance, and counseling regarding quality of life issues. Recommendations/Counseling Done: 1. Prostate cancer. Patient awaiting PSA, regarding next set of decisions. This is fairly anxiety producing for him, particularly in the context of the continuum of care. Counseling provided regarding prostate cancer in the setting of management of disease, reviewed the continuum of cancer treatments and addressed questions, referred back to oncology when more information available. Counseling provided regarding decisions will be based on findings, and if lead to further work-up. Normalized grief and fear regarding cancer diagnosis. Counseling also provided divided regarding ways to support his current wellbeing, including continue with his activity program, and progressive exercise. Focus on healthy eating and diet, recommended "eat to beat disease", which would benefit both his cancer diagnosis and cardiac health. 2. Anxiety. This is multifactorial given patient's comorbidities, underlying coping mechanisms, and previous experiences with healthcare system. Counseling provided regarding what was within his control, patient is not needing interes aurora in medications, though did introduce it as a tool in the tool box. Counseling provided regarding CBT, meditation and mindfulness, distraction, reframing, and focusing on things that bring him cherelle and current bucket list. 3. Postconcussion syndrome. Patient does present with persistent pain, intermittent using acetaminophen. Has not seen neurology, has had post concussion treatment to rehab. Patient may benefit from low-dose pregabalin, will defer till after neurology appointment. 4. Advanced care planning. Patient does have D POA and directive done, though somewhat generalized and not specific to his current situation. Given patient's high level of anxiety, and unknown plan for further treatments, discussed would further define this down after we have more information. Patient does have significant fears regarding the burden of illness, decline, and medication use in the future. These were acknowledged and was reassured the goal is to work into his goals of care and treatment planning in future.
== END 2019-10-30 13:41 | disposition home or self-care (01) ==
LOC: PC 13:40
PROVIDERS: ATTEND Nurse Practitioner Adult Health
DX: Z51.5 Encounter for palliative care (principal); C61 Malignant neoplasm of prostate; F41.9 Anxiety disorder, unspecified; G44.329 Chronic post-traumatic headache, not intractable; R41.3 Other amnesia; F07.81 Postconcussional syndrome; R53.83 Other fatigue; R35.1 Nocturia; M19.90 Unspecified osteoarthritis, unspecified site; I25.2 Old myocardial infarction; I25.10 Atherosclerotic heart disease of native coronary artery without angina pectoris; Z72.820 Sleep deprivation; Z79.899 Other long term (current) drug therapy; Z79.82 Long term (current) use of aspirin
CPT/HCPCS: 99205

== ENCOUNTER 2019-11-14 07:28 | Outpatient (CLI) | payer MEDICARE, BC | END 2019-11-14 07:29 | disposition home or self-care (01) | LOC: LAB 07:28 | PROVIDERS: ATTEND Urology | DX: C61 Malignant neoplasm of prostate (principal) | CPT/HCPCS: 36415; 84153 ==

== ENCOUNTER 2019-11-24 07:35 | Outpatient (CLI) | payer MEDICARE, BC ==
[2019-11-24 08:14] LABS: CALCIUM 9.2 mg/dL (8.5-10.3); CREATININE 1.1 mg/dL (0.6-1.2)
== END 2019-11-24 07:36 | disposition home or self-care (01) ==
LOC: LAB 07:35
PROVIDERS: ATTEND Internal Medicine
DX: I25.10 Atherosclerotic heart disease of native coronary artery without angina pectoris (principal)
CPT/HCPCS: 36415; 80048

== ENCOUNTER 2020-01-09 07:29 | Outpatient (CLI) | payer MEDICARE, BC ==
[2020-01-09 07:51] LABS: CALCIUM 9.2 mg/dL (8.5-10.3)
== END 2020-01-09 07:30 | disposition home or self-care (01) ==
LOC: LAB 07:29
PROVIDERS: ATTEND Internal Medicine
DX: I10 Essential (primary) hypertension (principal)
CPT/HCPCS: 36415; 80048

== ENCOUNTER 2020-02-27 07:31 | Outpatient (CLI) | payer MEDICARE, BC | END 2020-02-27 07:32 | disposition home or self-care (01) | LOC: LAB 07:31 | PROVIDERS: ATTEND Urology | DX: C61 Malignant neoplasm of prostate (principal) | CPT/HCPCS: 36415; 84153 ==

== ENCOUNTER 2020-03-10 07:39 | Outpatient (CLI) | payer MEDICARE, BC ==
[2020-03-10 08:26] LABS: CALCIUM 9.2 mg/dL (8.5-10.3)
== END 2020-03-10 07:40 | disposition home or self-care (01) ==
LOC: LAB 07:39
PROVIDERS: ATTEND Internal Medicine
DX: E87.5 Hyperkalemia (principal)
CPT/HCPCS: 36415; 80048

== ENCOUNTER 2020-04-21 08:21 | Outpatient (CLI) | payer MEDICARE, BC ==
--- NOTE | 2020-04-23 17:24 | DEXA Report ---
PROCEDURE: Dexa Spine and/or Hip INDICATIONS: BONE DISORDER TECHNIQUE: Dual energy x-ray absorptiometry (DXA) was performed on a [employer] System. Regions measur ed are the AP Spine, femoral neck, and if needed forearm. COMPARISON: None. FINDINGS: Lumbar Spine: Bone Mineral Density 1.504 g/cm/cm,T score 2.4, normal Left Hip: Bone Mineral Density 0.929 g/cm/cm,T score -1.2, osteopenia Left Femoral Neck: Bone Mineral Density 0.853 g/cm/cm, T score -1.7, osteopenia (T score greater or equal to -1.0: NORMAL) (T score from -1.1 to -2.4: OSTEOPENIA) (T score less than or equal to -2.5 to: OSTEOPOROSIS) Impression: Osteopenia. Patients with diagnosis of osteoporosis or osteopenia should have regular bone mineral density assess ment. For those eligible for Medicare, routine testing is allowed once every 2 years. Testing frequ ency can be increased for patients who have rapidly progressing disease or for those who are receivin g medical therapy to restore bone mass. Reviewed by: Maricel Ledezma MD, PhD on 04/21/2020 10:31 AM PDT Approved by: Maricel Ledezma MD, PhD on 04/21/2020 10:31 AM PDT Station ID: [id number]
== END 2020-04-21 08:22 | disposition home or self-care (01) ==
LOC: DI 08:21
PROVIDERS: ATTEND Urology
DX: M85.89 Other specified disorders of bone density and structure, multiple sites (principal)
CPT/HCPCS: 77080

== ENCOUNTER 2020-05-22 09:16 | Emergency (ER) | payer MEDICARE, BC ==
--- NOTE | 2020-05-22 09:54 | ED Physician Documentation ---
PD HPI ABD PAIN - Stated complaint Stated Complaint: GROIN PX/HERNIA - History obtained from History obtained from: Patient - History of Present Illness Timing - onset: How many hours ago (1), Today Timing - duration: Hours (1) Timing - details: Abrupt onset, Still present (The patient started with pain at the right inguinal area several days ago and talked with his primary care and referred to surgery and saw Dr. Castillo in the office 2 days ago. Plan for repair of the hernia on the . He had onset of significant pain, swelling and firmness in the area 1 hour ago) Quality: Cramping, Aching, Pain Location: RLQ (inguinal area) Radiation: No: Right flank Worsened by: Moving, Palpation Associated symptoms: Nausea, Loss of appetite. No: Fever, Vomiting, Diarrhea, Constipation, Dysuria Recently seen: Clinic (seen 2 days ago in Surgery office for eval of hernia, with sugery planned for Jun 08.) Review of Systems Constitutional: denies: Fever Nose: denies: Rhinorrhea / runny nose, Congestion Throat: denies: Sore throat Respiratory: denies: Cough GI: reports: Abdominal Pain (right inguinal area and RLQ), Nausea. denies: Vomiting, Constipation, Diarrhea : denies: Dysuria Skin: denies: Rash PD PAST MEDICAL HISTORY - Past Medical History Cardiovascular: Hypertension, High cholesterol, Coronary artery disease, MS, Other (cardiomyopathy) Respiratory: Asthma, Pneumonia Neuro: Head injury (post concussion syndrome), Headaches, Tremors Endocrine/Autoimmune: HyPOthyroidism GI: GERD : Incontinence (mild), Nocturia, Frequency, Other (prostate cancer) HEENT: None Psych: Anxiety, Claustrophobia Musculoskeletal: Osteoarthritis, Gout Derm: None - Past Surgical History Past Surgical History: Yes General: Appendectomy, Hiatal hernia repair, Other (prostatectomy 08/2018) Cardiovascular: Coronary stent - Present Medications Home Medications: Ambulatory Orders Medication Instructions Recorded Confirmed Levothyroxine Sodium 137 mcg PO DAILY 04/13/14 11/02/19 Albuterol Sulfate [Albuterol 1 puffs INH Q6HR 12/23/14 11/02/19 Sulfate Hfa] Metoprolol Tartrate 12.5 mg PO BID 12/25/14 11/02/19 Nitroglycerin [Nitrostat] 0.4 mg SL Q5MIN PRN 01/08/17 11/02/19 Cholecalciferol (Vitamin D3) 2,000 unit PO DAILY 06/01/17 11/02/19 [Vitamin D3] Aspirin Chewable [St Radames 81 mg PO DAILY 12/01/18 11/02/19 Aspirin] Rosuvastatin Calcium [Crestor] 10 mg PO DAILY 12/01/18 11/02/19 Lisinopril [Zestril] 2.5 mg PO DAILY 11/02/19 11/02/19 - Allergies Allergies/Adverse Reactions: Allergies Allergy/AdvReac Type Severity Reaction Status Date / Time nitroglycerin AdvReac Severe Unknown Verified 11/02/19 08:39 colchicine AdvReac Unknown Verified 11/02/19 08:39 lactose AdvReac Nausea Verified 11/02/19 08:40 - Social History Does the pt smoke?: No Smoking Status: Never smoker Does the pt drink ETOH?: No Does the pt have substance abuse?: No - Immunizations Immunizations are current?: Yes - POLST Patient has POLST: No PD ED PE NORMAL - Vitals Vital signs reviewed: Yes - General General: Alert and oriented X 3, No acute distress (He is lying in bed supine and states his pain is decreasing some), Well developed/nourished - Cardiac Cardiac: RRR, No murmur - Respiratory Respiratory: Clear bilaterally - Abdomen Abdomen: Normal bowel sounds, Soft, Non distended, No organomegaly, Other (There is a small inguinal mass in the right side with tenderness locally but is not hard at this time and reduces fairly readily. Rest of the abdomen is soft and nontender. Bowel sounds are present slightly hyperactive.) - Male Male : Deferred - Back Back: No CVA TTP - Derm Derm: Normal color, Warm and dry Results - Vitals Vitals: Vital Signs - 24 hr 05/22/20 05/22/20 05/22/20 09:20 10:25 10:30 Temperature 36.6 C Heart Rate 73 64 65 Respiratory 18 16 18 Rate Blood Pressure 112/68 99/66 105/64 O2 Saturation 98 100 99 05/22/20 05/22/20 11:00 11:30 Temperature 37.0 C Heart Rate 63 60 Respiratory 17 18 Rate Blood Pressure 102/62 100/61 O2 Saturation 98 99 Oxygen O2 Source Room air - Labs Labs: Laboratory Tests 05/22/20 05/22/20 05/22/20 10:06 10:06 10:06 WBC 3.6 L RBC 4.19 L Hgb 13.6 L Hct 39.9 L MCV 95.2 H MCH 32.5 H MCHC 34.1 RDW 12.6 Plt Count 136 MPV 9.5 Neut # (Auto) 2.6 Lymph # (Auto) 0.6 L [place] # (Auto) 0.4 Eos # (Auto) 0.1 Baso # (Auto) 0.0 Absolute Nucleated RBC 0.00 Nucleated RBC % 0.0 Sodium 138 Potassium 4.4 Chloride 99 L Carbon Dioxide 25 Anion Gap 14.0 H BUN 22 H Creatinine 1.0 Estimated GFR (MDRD) 73 L Glucose 159 H Calcium 9.2 Total Bilirubin 0.7 AST 20 ALT 20 Alkaline Phosphatase 47 Total Protein 6.4 L Albumin 4.0 Globulin 2.4 Albumin/Globulin Ratio 1.7 Lipase 38 Urine Color YELLOW Urine Clarity CLEAR Urine pH 5.5 Ur Specific [place] 1.020 Urine Protein NEGATIVE Urine Glucose (UA) NEGATIVE Urine Ketones NEGATIVE Urine Occult Blood NEGATIVE Urine Nitrite NEGATIVE Urine Bilirubin NEGATIVE Urine Urobilinogen 0.2 (NORMAL) Ur Leukocyte Esterase NEGATIVE Ur Microscopic Review NOT INDICATED Urine Culture Comments NOT INDICATED PD MEDICAL DECISION MAKING - ED course Complexity details: considered differential (He was rested in a supine position and the hernia area was starting to decompress some already. Palpation of it allowed for easy reduction. He states some mild cramps in the area but otherwise feeling better.), d/w patient, d/w literacy consultant (I talked with Dr. Castillo who had seen the patient about surgical repair. The patient was scheduled for June 08. Given the incarceration episode, Dr. Ortez will take him to surgery on Sunday given a negative COVID test. We will obtain that today and should have results within 1 to 2 days.) ED course: The patient had preop instructions for planned surgery on the . He is to do those instructions starting this coming Sunday for planned surgery on Sunday. He is to call in the morning to find out the time as it will be an add-on to the OR schedule. The patient is aware it may be later in the day and will be advised about any oral intake during the morning. He should remain n.p.o. until talking with the office Departure - Departure Disposition: Home, Self Care Clinical Impression: Right inguinal hernia Condition: Stable Record reviewed to determine appropriate education?: Yes Instructions: ED Hernia Inguinal Follow-Up: Catrachito Castillo MD [Provider Admit Priv/Credential] - Elise Bates MD [Primary Care Provider] - Comments: No prolonged standing or heavy lifting. Stay well-hydrated. Dr. Castillo says he can repair your hernia on Sunday but will need to fit you in as an add-on on the schedule. Start your preop instructions Sunday with anticipation of surgery on this coming Sunday (rather than on the ). Nothing to eat or drink after midnight on Sunday. Call Dr. Avina's office first thing Sunday to see when the surgery will be scheduled. Return if the hernia becomes incarcerated again and is unrelieved by rest, lying flat and a little cold pack to the hernia. Discharge Date/Time: 05/22/20 11:38
[2020-05-22 10:12] LABS: BASOPHILS % (AUTO) 0.6 %; EOSINOPHILS # (AUTO) 0.1 10^3/uL (0.0-0.7); EOSINOPHILS % (AUTO) 1.4 %; HGB - HEMOGLOBIN 13.6 g/dL (14.0-18.0); LYMPHOCYTES # (AUTO) 0.6 10^3/uL (1.5-3.5); LYMPHOCYTES % (AUTO) 15.5 %; MEAN CORPUSCULAR HEMOGLOBIN 32.5 pg (27.0-31.0); MEAN CORPUSCULAR HGB CONC 34.1 g/dL (32.0-36.0); MEAN CORPUSCULAR VOLUME 95.2 fL (80.0-94.0); MEAN PLATELET VOLUME 9.5 fL (7.4-11.4); MONOCYTES # (AUTO) 0.4 10^3/uL (0.0-1.0); MONOCYTES % (AUTO) 9.7 %; NEUTROPHILS # (AUTO) 2.6 10^3/uL (1.5-6.6); NEUTROPHILS % (AUTO) 72.5 %; PLT - PLATELET COUNT 136 10^3/uL (130-450); RED BLOOD COUNT 4.19 10^6/uL (4.70-6.10); RED CELL DISTRIBUTION WIDTH 12.6 % (12.0-15.0); WHITE BLOOD COUNT 3.6 x10^3/uL (4.8-10.8)
[2020-05-22 10:23] LABS: BILIRUBIN,URINE NEGATIVE (NEGATIVE); CLARITY,URINE CLEAR (CLEAR); GLUCOSE, URINE (UA) NEGATIVE (NEGATIVE); KETONES,URINE (UA) NEGATIVE (NEGATIVE); LEUKOCYTE ESTERASE, URINE NEGATIVE (NEGATIVE); NITRITE,URINE NEGATIVE (NEGATIVE); OCCULT BLOOD,URINE NEGATIVE (NEGATIVE); PH,URINE 5.5 PH (5.0-7.5); PROTEIN,URINE NEGATIVE (NEGATIVE); UROBILINOGEN,URINE 0.2 (NORMAL) E.U./dL (NORMAL)
[2020-05-22 10:25] LABS: ALBUMIN/GLOBULIN RATIO 1.7 (1.0-2.2); BILIRUBIN,TOTAL 0.7 mg/dL (0.2-1.0); CALCIUM 9.2 mg/dL (8.5-10.3); TOTAL PROTEIN 6.4 g/dL (6.7-8.2)
[2020-05-22] MEDS ORDERED: KETOROLAC 15 MG/ML VIAL IVP STA (10:45)
[2020-05-22 11:38] VITALS: BP 100/61
== END 2020-05-22 11:38 | disposition home or self-care (01) ==
LOC: ED 09:16
DX: K40.40 Unilateral inguinal hernia, with gangrene, not specified as recurrent (principal); Z20.828 Contact with and (suspected) exposure to other viral communicable diseases
CPT/HCPCS: 36415; 80053; 81003; 83690; 85025; 96374; 99283; 99284; U0004; 81001; 87086

== ENCOUNTER 2020-05-24 22:28 | Emergency (ER) | payer MEDICARE, BC ==
--- NOTE | 2020-05-24 23:32 | ED Physician Documentation ---
PD HPI ABD PAIN - Stated complaint Stated Complaint: R GROIN PAIN - Chief complaint Chief Complaint: Abd Pain - History obtained from History obtained from: Patient - History of Present Illness Timing - onset: How many days ago (4-5) Timing - details: Intermittant Pain level max: 6 Pain level now: 2 Quality: Pain Location: Other (right groin) Radiation: Other (no radiation) Improved by: Other (no ameliorating factors) Worsened by: Other (pain occurs when hernia is out) Associated symptoms: No: Fever, Nausea, Vomiting, Diarrhea, Constipation Similar symptoms before: Diagnosis (right inguinal hernia) Recently seen: Emergency Dept - Additional information Additional information: patient has had few days of intermittent right inguinal pain, T+R from this ED two days ago for recurrent right inguinal hernia (reducible) and patient is to have surgical repair of this hernia tomorrow (05/25/20). He presents tonight saying "I have an incarcerated hernia". In elaborating, he says his right going hernia has continued to appear and cause increasing pain although he says he is able to reduce it and that it is not currently (at the time of this HPI) out. Review of Systems Constitutional: denies: Fever, Chills, Sweats GI: reports: Abdominal Pain (right groin). denies: Abdominal Swelling, Nausea, Vomiting, Constipation, Diarrhea, Bloody / black stool PD PAST MEDICAL HISTORY - Past Medical History Cardiovascular: Hypertension, High cholesterol, Coronary artery disease, [place], Other (cardiomyopathy) Respiratory: Asthma, Pneumonia Neuro: Head injury (post concussion syndrome), Headaches, Tremors Endocrine/Autoimmune: HyPOthyroidism GI: GERD : Incontinence (mild), Nocturia, Frequency, Other (prostate cancer) HEENT: None Psych: Anxiety, Claustrophobia Musculoskeletal: Osteoarthritis, Gout Derm: None - Past Surgical History Past Surgical History: Yes General: Appendectomy, Hiatal hernia repair, Other (prostatectomy 08/2018) Cardiovascular: Coronary stent - Present Medications Home Medications: Ambulatory Orders Medication Instructions Recorded Confirmed Levothyroxine Sodium 137 mcg PO DAILY 04/13/14 11/02/19 Albuterol Sulfate [Albuterol 1 puffs INH Q6HR 12/23/14 11/02/19 Sulfate Hfa] Metoprolol Tartrate 12.5 mg PO BID 12/25/14 11/02/19 Nitroglycerin [Nitrostat] 0.4 mg SL Q5MIN PRN 01/08/17 11/02/19 Cholecalciferol (Vitamin D3) 2,000 unit PO DAILY 06/01/17 11/02/19 [Vitamin D3] Aspirin Chewable [St Radames 81 mg PO DAILY 12/01/18 11/02/19 Aspirin] Rosuvastatin Calcium [Crestor] 10 mg PO DAILY 12/01/18 11/02/19 Lisinopril [Zestril] 2.5 mg PO DAILY 11/02/19 11/02/19 - Allergies Allergies/Adverse Reactions: Allergies Allergy/AdvReac Type Severity Reaction Status Date / Time nitroglycerin AdvReac Severe Unknown Verified 05/24/20 23:01 colchicine AdvReac Unknown Verified 05/24/20 23:01 lactose AdvReac Nausea Verified 05/24/20 23:01 - Social History Does the pt smoke?: No Smoking Status: Never smoker Does the pt drink ETOH?: No Does the pt have substance abuse?: No - Immunizations Immunizations are current?: Yes - POLST Patient has POLST: No PD ED PE NORMAL - Vitals Vital signs reviewed: Yes - General General: Alert and oriented X 3, No acute distress, Well developed/nourished - Abdomen Abdomen: Normal bowel sounds, Soft, Non tender, Non distended, Other (no hernia visible nor palpable right inguinal canal. nontender exam of right inguinal cre ase/groin) Results - Vitals Vitals: Vital Signs - 24 hr 05/24/20 05/25/20 22:57 00:29 Temperature 36.6 C 36.7 C Heart Rate 62 58 L Respiratory 14 17 Rate Blood Pressure 122/73 111/71 O2 Saturation 98 97 Oxygen O2 Source Room air PD MEDICAL DECISION MAKING - ED course Complexity details: reviewed old records, considered differential, d/w patient ED course: no evidence of active hernia at time of H+P and patient is reassured that his hernia is neither incarcerated (not reducible) nor strangulated (severe pain due to irreducible hernia). Emergent testing not indicated at this time, will proceed with plan to see surgeon tomorrow Departure - Departure Disposition: 01 Home, Self Care Clinical Impression: Right inguinal hernia Condition: Good Instructions: ED Hernia Inguinal Comments: Follow up later today for the surgery as scheduled Discharge Date/Time: 05/25/20 00:30
[2020-05-25 00:30] VITALS: BP 111/71
== END 2020-05-25 00:30 | disposition home or self-care (01) ==
LOC: ED 22:28
DX: K40.90 Unilateral inguinal hernia, without obstruction or gangrene, not specified as recurrent (principal)
CPT/HCPCS: 99281; 99283

== ENCOUNTER 2020-05-25 10:46 | Day surgery (SDC) | payer MEDICARE, BC ==
[~2020-05-25 10:46] MED LIST: CEFAZOLIN SODIUM IN 0.9 % NACL 2 GM/100 ML BAG IV ONE
[2020-05-25] MEDS ORDERED: LACTATED RINGERS 1,000 ML IV ONE ×2 (11:30→14:03)
--- NOTE | 2020-05-25 11:36 | ANESTHESIA ---
Pre-Anesthesia VS, & Labs - Diagnosis right inguinal hernia - Procedure right open inguinal hernia repair Vital Signs: Temp Pulse Resp BP Pulse Ox 36.2 C L 55 L 16 105/69 98 05/25/20 10:52 05/25/20 10:52 05/25/20 10:52 05/25/20 10:52 05/25/20 10:52 Height 5 ft 11 in Weight (kg) 88.7 kg Body Mass Index 26.6 - NPO >8 hours Home Medications and Allergies Levothyroxine Sodium 137 mcg PO DAILY 04/13/14 Albuterol Sulfate [Albuterol Sulfate Hfa] 1 puffs INH Q6HR 12/23/14 Metoprolol Tartrate 12.5 mg PO BID 12/25/14 Nitroglycerin [Nitrostat] 0.4 mg SL Q5MIN PRN 01/08/17 Cholecalciferol (Vitamin D3) [Vitamin D3] 2,000 unit PO DAILY 06/01/17 Aspirin Chewable [St Radames Aspirin] 81 mg PO DAILY 12/01/18 Rosuvastatin Calcium [Crestor] 10 mg PO DAILY 12/01/18 Lisinopril [Zestril] 2.5 mg PO DAILY 11/02/19 Allergies/Adverse Reactions: Allergies Allergy/AdvReac Type Severity Reaction Status Date / Time nitroglycerin AdvReac Severe Unknown Verified 05/24/20 23:01 colchicine AdvReac Unknown Verified 05/24/20 23:01 lactose AdvReac Nausea Verified 05/24/20 23:01 Anes History & Medical History - Anesthetic History Anesthesia Complications: reports: No previous complications - Medical History Cardiovascular: reports: Hypertension, High cholesterol, Coronary artery disease, [place], Other Pulmonary: reports: Asthma, Pneumonia Gastrointestinal: reports: GERD Urinary: reports: Incontinence, Nocturia, Frequency, Other Neuro: reports: Head injury, Headaches, Tremors Musculoskeletal: reports: Osteoarthritis, Gout Endocrine/Autoimmune: reports: HyPOthyroidism Blood Disorders: reports: None Skin: reports: None Smoking Status: Never smoker - Surgical History General: Appendectomy, Hiatal hernia repair, Other Cardiothoracic: Coronary stent Urologic: Prostatic surgery Exam General: Alert Dental: WNL Mouth Opening: Greater than 4 Fingerbreadths Neck Mobility: Normal Mallampati classification: II Respiratory: Lungs clear Cardiovascular: Regular rate Plan Anesthesia Type: General, MAC Consent for Procedure(s) Verified and Reviewed: Yes Code Status: Attempt Resuscitation ASA classification: 3-Severe systemic disease Is this case an emergency?: Yes
[2020-05-25] MEDS ORDERED: LIDOCAINE 1%-EPI 1:100000 20 ML MDV ONE (12:10)
[2020-05-25] MEDS ORDERED: MIDAZOLAM 2 MG/2 ML VIAL IVP ONE (12:16)
[2020-05-25] MEDS ORDERED: fentaNYL 100 MCG/2 ML VIAL IVP ONE (12:16)
[2020-05-25] MEDS ORDERED: PROPOFOL 200 MG/20 ML VIAL IVP ONE (12:16)
[2020-05-25] MEDS ORDERED: LIDOCAINE-MPF 2% 5 ML VIAL IM ONE (12:16)
[2020-05-25] MEDS ORDERED: BUPIVACAINE 0.25% PF 30 ML VIAL ONE (12:50)
[2020-05-25] MEDS ORDERED: BUPIVACAINE 0.25% PF 30 ML VIAL SUBQ ONE ×2 (13:04)
[2020-05-25] MEDS ORDERED: LIDOCAINE 1%-EPI 1:100000 20 ML MDV SUBQ ONE ×2 (13:05)
[2020-05-25] MEDS ORDERED: HYDROcod/ACETAM 5/325 MG TABLET PO PRN (14:06)
--- NOTE | 2020-05-25 14:10 | ANESTHESIA POST OP EVALUATION ---
Anesthesia Post Eval - Post Anesthesia Eval Vitals: Last Vital Signs Temp 36.2 C L 05/25/20 10:52 Pulse 55 L 05/25/20 10:52 Resp 16 05/25/20 10:52 BP 105/69 05/25/20 10:52 Pulse Ox 98 05/25/20 10:52 CV Function Including HR & BP: positive: Stable Pain Control: positive: Satisfactory Nausea & Vomiting: positive: Negative Mental Status: positive: Baseline Respiratory Status: Airway Patent Hydration Status: Satisfactory Anesthesia Complications: positive: None
[2020-05-25] MEDS ORDERED: HYDROcod/ACETAM 5/325 MG TABLET ONE (14:29)
[2020-05-25 14:42] VITALS: BP 104/66
--- NOTE | 2020-05-25 16:33 | OPERATIVE REPORT ---
DATE OF SERVICE: 05/25/2020 Physician: Catrachito Castillo MD PREOPERATIVE DIAGNOSIS: Right inguinal hernia with nerve involvement and pain. POSTOPERATIVE DIAGNOSIS: Right inguinal hernia with nerve involvement and pain. PROCEDURE PERFORMED 1. Right inguinal hernia repair with mesh, open Higinio. 2. Excision of ilioinguinal nerve. ANESTHESIA: Monitored anesthesia care, IV sedation, local anesthesia. SURGEON: Catrachito Castillo MD OBIEE ARCHITECT: None. COMPLICATIONS: None. SPECIMEN: Ilioinguinal nerve and herniated adipose tissue removed; however, not sent for pathology. ESTIMATED BLOOD LOSS: None. COMPLICATIONS: None. PROSTHETIC: Polypropylene mesh. FINDINGS: Indirect inguinal hernia and larger direct defect. INDICATIONS FOR PROCEDURE: The patient is a 75-year-old gentleman who has developed a very symptomatic right inguinal hernia with quite excruciating pain at times. He presents for open repair with mesh. Risks discussed and alternatives discussed. All questions answered and consent obtained. DETAILS OF PROCEDURE: The patient was properly identified, brought to the operating room, and placed in supine position. He voided prior to surgery. Monitored anesthesia care was given as well as IV sedation. He was prepped and draped in a sterile fashion and given preoperative antibiotics. A 6 cm incision was made in the direction of José Antonio's lines. Local anesthetic was given throughout the procedure. Dissection proceeded with cutting current. The superficial epigastric vein was not within the field of surgery. Dissection proceeded down to the aponeurosis. The aponeurosis was opened in the direction of its fibers. The shelving border of Poupart's ligament, pubic tubercle, and Rod's ligament area was all defined. The cord structures were mobilized and brought up. Herniated adipose tissue along the cord structures was mobilized back to the internal ring, clamped, divided, and tied with 2-0 silk. The patient had an indirect inguinal hernia sac. This was mobilized away from the cord structures and suture ligated with a 2-0 silk. He had significant direct bulge as well. The floor then was repaired with a 2-0 silk pursestring suture with care not to entrap the adjacent genitofemoral nerve. A polypropylene mesh was then cut to size and with tails and placed in Higinio fashion. The mesh was secured with multiple interrupted Ethibond sutures. Sutures were placed at the pubic tubercle area, along the shelving border of Poupart's ligament, and medially along the musculature fascia of the internal oblique. The genitofemoral nerve and the iliohypogastric nerve both lay loose between interrupted sutures. The medial tail of the mesh was secured to the shelving border of Poupart's ligament with 3 interrupted 0 Ethibond sutures, recreating the internal ring of appropriate size. The aponeurosis was closed with a running 2-0 Vicryl suture. John's was closed with interrupted 3-0 Vicryl suture. Buried interrupted subdermal 3-0 Vicryl sutures were then placed. Skin was closed with a running 4-0 Monocryl subcuticular suture. Dressing was applied. He tolerated the procedure very well and transferred himself to [facility] in good condition. TD: 05/25/2020 14:28 [email or web address]
== END 2020-05-25 10:47 | disposition home or self-care (01) ==
LOC: SDS 10:46
PROVIDERS: ATTEND Surgery
DX: K40.90 Unilateral inguinal hernia, without obstruction or gangrene, not specified as recurrent (principal); J45.909 Unspecified asthma, uncomplicated; E03.9 Hypothyroidism, unspecified; I10 Essential (primary) hypertension; E78.5 Hyperlipidemia, unspecified; I25.10 Atherosclerotic heart disease of native coronary artery without angina pectoris; R35.1 Nocturia; R32 Unspecified urinary incontinence; R35.0 Frequency of micturition; I25.2 Old myocardial infarction; Z79.51 Long term (current) use of inhaled steroids; Z79.82 Long term (current) use of aspirin; Z79.899 Other long term (current) drug therapy
CPT/HCPCS: 49505; A9270; C1781; J0690; J7120

== ENCOUNTER 2020-06-03 14:06 | Outpatient (CLI) | payer MEDICARE, BC ==
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
== END 2020-06-03 14:07 | disposition home or self-care (01) ==
LOC: PC 14:06
PROVIDERS: ATTEND Nurse Practitioner Adult Health
DX: Z51.5 Encounter for palliative care (principal); C61 Malignant neoplasm of prostate; M85.80 Other specified disorders of bone density and structure, unspecified site; M54.9 Dorsalgia, unspecified; G44.40 Drug-induced headache, not elsewhere classified, not intractable; Z79.899 Other long term (current) drug therapy
CPT/HCPCS: 99350

== ENCOUNTER 2020-07-30 09:36 | Outpatient (CLI) | payer MEDICARE, BC | END 2020-07-30 09:37 | disposition home or self-care (01) | LOC: LAB 09:36 | PROVIDERS: ATTEND Urology | DX: C61 Malignant neoplasm of prostate (principal) | CPT/HCPCS: 36415; 84153 ==

== ENCOUNTER 2020-11-29 11:15 | Outpatient (CLI) | payer MEDICARE, BC ==
--- NOTE | 2020-11-29 15:13 | XRAY Report ---
PROCEDURE: Lumbar Spine 2 View INDICATIONS: LOWER BACK PX TECHNIQUE: 2 views of the lumbar spine were acquired. COMPARISON: None. FINDINGS: Bones: 5 [id number] vertebrae are present. There is trace retrolisthesis of L2 on L3, L3 on L4 . There is multilevel degenerative disc space narrowing, moderate to severe at L5-S1. Moderate to sev ere foraminal narrowing is also noted L5-S1, moderate at L2-3 and L3-4. Ridging anterior osteophytes are noted at T11-12, T12-L1 and partially bridging at L1-L2. No vertebral body compression fractures. No suspicious bony lesions. Soft tissues: Overlying bowel gas pattern is normal. No suspicious soft tissue calcifications. IMPRESSION: Multilevel degenerative changes most severe at L5-S1. As clinically indicated, further e valuation with MRI lumbar spine may be obtained. Reviewed by: Karmen Tobias MD on 11/29/2020 3:12 PM PDT Approved by: Karmen Tobias MD on 11/29/2020 3:12 PM PDT Station ID: [id number]
== END 2020-11-29 11:16 | disposition home or self-care (01) ==
LOC: DI 11:15
PROVIDERS: ATTEND Internal Medicine
DX: M47.816 Spondylosis without myelopathy or radiculopathy, lumbar region (principal); M47.817 Spondylosis without myelopathy or radiculopathy, lumbosacral region

== ENCOUNTER 2021-01-22 14:04 | Emergency (ER) | payer MEDICARE, BC ==
[2021-01-22 14:35] VITALS: BP 122/71
[2021-01-22 14:35] LABS: BILIRUBIN,URINE NEGATIVE (NEGATIVE); CLARITY,URINE CLEAR (CLEAR); GLUCOSE, URINE (UA) NEGATIVE (NEGATIVE); KETONES,URINE (UA) NEGATIVE (NEGATIVE); LEUKOCYTE ESTERASE, URINE NEGATIVE (NEGATIVE); NITRITE,URINE NEGATIVE (NEGATIVE); OCCULT BLOOD,URINE NEGATIVE (NEGATIVE); PROTEIN,URINE NEGATIVE (NEGATIVE); UROBILINOGEN,URINE 1 (NORMAL) E.U./dL (NORMAL)
[2021-01-22 14:49] LABS: RBC,URINE 0-5 /HPF (0-5); SQUAMOUS EPITHELIAL CELL,UR RARE Squamous (<= Few); WBC,URINE 0-3 /HPF (0-3)
[2021-01-22 14:50] LABS: BACTERIA,URINE None Seen /HPF (None Seen)
--- NOTE | 2021-01-22 15:03 | ED Physician Documentation ---
History of Present Illness - Stated complaint Stated Complaint: MALE - Chief complaint Chief Complaint: Abd Pain - History obtained from History obtained from: Patient - Additonal information Additional information: 75-year-old man presented with foul-smelling urine over the past 2 weeks as well as some difficulty initiating stream 3 weeks ago that lasted for 2 days and is now resolved. Patient denies fever, back pain, dysuria, increased frequency, hematuria. Denies abdominal pain. He also states that his right first toe has been hurting him and he thinks he is having a gout flare. Patient has a follow- up appointment with his primary doctor tomorrow. Review of Systems Ten Systems: 10 systems reviewed and negative Constitutional: denies: Fever, Chills GI: denies: Abdominal Pain, Nausea : reports: Unable to Void. denies: Dysuria, Frequency, Discharge Musculoskeletal: denies: Back pain PD PAST MEDICAL HISTORY - Past Medical History Past Medical History: Yes Cardiovascular: Hypertension, High cholesterol, Coronary artery disease, [place], Other Respiratory: Asthma, Pneumonia Neuro: Head injury, Headaches, Tremors Endocrine/Autoimmune: HyPOthyroidism GI: GERD : Incontinence, Nocturia, Frequency, Other HEENT: None Psych: None Musculoskeletal: Osteoarthritis, Gout Derm: None - Past Surgical History Past Surgical History: Yes General: Appendectomy, Hiatal hernia repair, Other Cardiovascular: Coronary stent - Present Medications Home Medications: Ambulatory Orders Medication Instructions Recorded Confirmed Levothyroxine Sodium 137 mcg PO DAILY 04/13/14 01/22/21 Albuterol Sulfate [Albuterol 1 puffs INH Q6HR 12/23/14 01/22/21 Sulfate Hfa] Metoprolol Tartrate 12.5 mg PO BID 12/25/14 01/22/21 Nitroglycerin [Nitrostat] 0.4 mg SL Q5MIN PRN 01/08/17 01/22/21 Cholecalciferol (Vitamin D3) 2,000 unit PO DAILY 06/01/17 01/22/21 [Vitamin D3] Aspirin Chewable [St Radames 81 mg PO DAILY 12/01/18 01/22/21 Aspirin] Rosuvastatin Calcium [Crestor] 10 mg PO DAILY 12/01/18 01/22/21 Lisinopril [Zestril] 20 mg PO DAILY 11/02/19 01/22/21 Calcium Carbonate [Calcium] 1 cap PO DAILY 06/05/20 06/05/20 Denosumab [Prolia] 60 mg IM .Q6 MONTH 06/05/20 01/22/21 Leuprolide [Lupron] 30 mg IM .Q4 MONTH 06/05/20 01/22/21 Enzalutamide [Xtandi] 40 mg PO DAILY 01/22/21 01/22/21 - Allergies Allergies/Adverse Reactions: Allergies Allergy/AdvReac Type Severity Reaction Status Date / Time nitroglycerin AdvReac Severe Unknown Verified 01/22/21 14:07 colchicine AdvReac Unknown Verified 01/22/21 14:07 lactose AdvReac Nausea Verified 01/22/21 14:07 - Social History Does the pt smoke?: No Smoking Status: Never smoker Does the pt drink ETOH?: No Does the pt have substance abuse?: No - Immunizations Immunizations are current?: Yes - POLST Patient has POLST: No PD ED PE NORMAL - Vitals Vital signs reviewed: Yes - General General: Alert and oriented X 3, No acute distress, Well developed/nourished - HEENT HEENT: Atraumatic, PERRL, EOMI - Neck Neck: Supple, no meningeal sign - Abdomen Abdomen: Soft, Non tender, Non distended, Other (bladder nonpalpable) - Male Male : 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 When foreskin is retracted, copious amounts of smegma and foul smell entertained.) - Back Back: No CVA TTP - Derm Derm: Normal color, Warm and dry - Extremities Extremities: No deformity - Neuro Neuro: Alert and oriented X 3 - Psych Psych: Normal mood, Normal affect Results - Vitals Vitals: Vital Signs - 24 hr 01/22/21 01/22/21 14:07 14:34 Temperature 36.6 C Heart Rate 62 61 Respiratory 16 16 Rate Blood Pressure 133/76 H 122/71 O2 Saturation 100 99 Oxygen O2 Source Room air - Labs Labs: Laboratory Tests 01/22/21 14:18 Urine Color YELLOW Urine Clarity CLEAR Urine pH 7.0 Ur Specific Arrey 1.020 Urine Protein NEGATIVE Urine Glucose (UA) NEGATIVE Urine Ketones NEGATIVE Urine Occult Blood NEGATIVE Urine Nitrite NEGATIVE Urine Bilirubin NEGATIVE Urine Urobilinogen 1 (NORMAL) Ur Leukocyte Esterase NEGATIVE Urine RBC 0-5 Urine WBC 0-3 Ur Squamous Epith Cells RARE Squamous Urine Bacteria None Seen Urine Culture Comments NOT INDICATED PD MEDICAL DECISION MAKING - ED course ED course: 75-year-old man presented with foul-smelling urine , smegma buildup, and first toe pain concerning for early gout flare. He will f/u with his PMD tomorrow. I offered prednisone but he refused, saying it does not agree with him. We agreed to try Decadron and have him follow-up if he does not have improvement. Also advised to clean the foreskin regularly. Return precautions were given. Departure - Departure Disposition: 01 Home, Self Care Clinical Impression: Smegma, Foul smelling urine, Gout Condition: Good Instructions: ED Foreskin Care Comments: You were seen in the emergency department for foul-smelling urine. Make sure to clean your foreskin daily. You also may notice that changes in your diet can improve the smell of your urine. Your urinalysis was normal. Please follow-up with your primary doctor and return if you have any new or worsening symptoms or other concerns.
[2021-01-22] MEDS ORDERED: DEXAMETHASONE 10 MG/ML VIAL PO STA (15:05)
[2021-01-22] MEDS ORDERED: CHERRY SYRUP 10 ML UDC PO ONE (15:05)
== END 2021-01-22 15:17 | disposition home or self-care (01) ==
LOC: ED 14:04
DX: N48.89 Other specified disorders of penis (principal); R82.998 Other abnormal findings in urine; M10.9 Gout, unspecified; I10 Essential (primary) hypertension
CPT/HCPCS: 81001; 87086; 99283; 99284

== ENCOUNTER 2021-01-27 13:01 | Outpatient (CLI) | payer MEDICARE, BC | END 2021-01-27 13:02 | disposition home or self-care (01) | LOC: LAB 13:01 | PROVIDERS: ATTEND Urology | DX: M85.80 Other specified disorders of bone density and structure, unspecified site (principal); C61 Malignant neoplasm of prostate | CPT/HCPCS: 36415; 84153 ==

== ENCOUNTER 2021-05-30 12:50 | Outpatient (CLI) | payer MEDICARE, BC | END 2021-05-30 12:51 | disposition home or self-care (01) | LOC: LAB 12:50 | PROVIDERS: ATTEND Urology | DX: C61 Malignant neoplasm of prostate (principal) | CPT/HCPCS: 36415; 84153 ==

== ENCOUNTER 2021-06-21 07:26 | Outpatient (CLI) | payer MEDICARE, BC ==
[2021-06-21 07:40] LABS: BASOPHILS % (AUTO) 0.6 %; EOSINOPHILS # (AUTO) 0.2 10^3/uL (0.0-0.7); EOSINOPHILS % (AUTO) 3.4 %; HCT - HEMATOCRIT 44.9 % (42.0-52.0); HGB - HEMOGLOBIN 14.8 g/dL (14.0-18.0); LYMPHOCYTES # (AUTO) 1.2 10^3/uL (1.5-3.5); MEAN CORPUSCULAR HEMOGLOBIN 31.2 pg (27.0-31.0); MEAN CORPUSCULAR VOLUME 94.5 fL (80.0-94.0); MEAN PLATELET VOLUME 9.4 fL (7.4-11.4); MONOCYTES # (AUTO) 0.4 10^3/uL (0.0-1.0); MONOCYTES % (AUTO) 8.2 %; NEUTROPHILS # (AUTO) 2.9 10^3/uL (1.5-6.6); NEUTROPHILS % (AUTO) 61.6 %; PLT - PLATELET COUNT 152 10^3/uL (130-450); RED BLOOD COUNT 4.75 10^6/uL (4.70-6.10); RED CELL DISTRIBUTION WIDTH 12.1 % (12.0-15.0); WHITE BLOOD COUNT 4.7 x10^3/uL (4.8-10.8)
[2021-06-21 08:06] LABS: ALBUMIN 4.4 g/dL (3.2-5.5); ALBUMIN/GLOBULIN RATIO 1.8 (1.0-2.2); ALKALINE PHOSPHATASE 61 IU/L (42-121); ALT ALANINE AMINOTRANSFERASE 13 IU/L (10-60); AST ASPARTATE AMINOTRANSFERASE 13 IU/L (10-42); BILIRUBIN,TOTAL 0.8 mg/dL (0.2-1.0); BUN - BLOOD UREA NITROGEN 16 mg/dL (6-20); CALCIUM 9.6 mg/dL (8.5-10.3); CARBON DIOXIDE - CO2 30 mmol/L (21-32); CHLORIDE 104 mmol/L (101-111); CHOL/HDL RATIO 3.2 (<5.0); CHOLESTEROL 154 mg/dL; CREATININE 0.9 mg/dL (0.6-1.2); GFR - MDRD 82 (>89); GLUCOSE 99 mg/dL (70-100); HDL CHOLESTEROL 48 mg/dL; LDL CHOLESTEROL,CALCULATED 80 mg/dL; LDL/HDL RATIO 1.7 (<3.6); SODIUM 141 mmol/L (135-145); TOTAL PROTEIN 6.8 g/dL (6.7-8.2); TRIGLYCERIDES 128 mg/dL; URIC ACID 5.4 mg/dL (2.6-7.2); VLDL CHOLESTEROL 26 mg/dL
[2021-06-21 08:42] LABS: ESTIMATED AVERAGE GLUCOSE 103 mg/dL (70-100); HEMOGLOBIN A1c% 5.2 % (4.27-6.07)
== END 2021-06-21 07:27 | disposition home or self-care (01) ==
LOC: LAB 07:26
PROVIDERS: ATTEND Internal Medicine
DX: C61 Malignant neoplasm of prostate (principal); Z79.899 Other long term (current) drug therapy; E03.9 Hypothyroidism, unspecified; M10.9 Gout, unspecified; Z13.6 Encounter for screening for cardiovascular disorders; J45.909 Unspecified asthma, uncomplicated; Z86.010 Personal history of colon polyps; E78.5 Hyperlipidemia, unspecified; R73.01 Impaired fasting glucose
CPT/HCPCS: 36415; 80053; 80061; 83036; 83721; 84153; 84443; 84550; 85025

== ENCOUNTER 2021-08-23 16:59 | Outpatient (CLI) | payer MEDICARE, BC ==
--- NOTE | 2021-08-23 18:10 | XRAY Report ---
PROCEDURE: Knee 3 View LT INDICATIONS: L KNEE PAIN S/P FALL TECHNIQUE: 3 views of the left knee(s) were acquired. COMPARISON: None. FINDINGS: Bones: No fractures or dislocations. Mild to moderate tricompartmental osteoarthritis is seen more prominent in medial femoral tibial compartment. No patellar subluxation. No suspicious bony lesions. Soft tissues: No joint effusion. No suspicious soft tissue calcifications. IMPRESSION: Mild to moderate tricompartmental osteoarthritis more prominent in medial femoral tibial compartment. No acute fracture or dislocation. No significant joint effusion. Reviewed by: Pritesh Ramos MD on 08/23/2021 6:09 PM PST Approved by: Pritesh Ramos MD on 08/23/2021 6:09 PM PST Station ID: [id number]
== END 2021-08-23 17:00 | disposition home or self-care (01) ==
LOC: DI 16:59
PROVIDERS: ATTEND Internal Medicine
DX: S80.912A Unspecified superficial injury of left knee, initial encounter (principal); M17.12 Unilateral primary osteoarthritis, left knee

== ENCOUNTER 2021-09-19 08:00 | Outpatient (CLI) | payer MEDICARE, BC ==
[2021-09-19 19:21] LABS: RAPID STREP SCREEN Negative (Negative)
== END 2021-09-19 23:59 ==
LOC: LAB 08:00
PROVIDERS: ATTEND Internal Medicine
DX: R07.0 Pain in throat (principal); Z20.822 Contact with and (suspected) exposure to COVID-19
CPT/HCPCS: 87070; 87430; U0004

== ENCOUNTER 2021-11-01 09:00 | Outpatient (CLI) | payer MEDICARE, BC ==
[2021-11-01 10:23] LABS: FREE T3 2.93 pg/mL (2.5-3.9)
[2021-11-01 10:24] LABS: THYROID STIMULATING HORMONE 2.54 uIU/mL (0.34-5.60)
[2021-11-01 10:25] LABS: FREE T4 (FREE THYROXINE) 1.14 ng/dL (0.58-1.64)
[2021-11-03 15:46] LABS: THYROID PEROXIDASE ANTIBODIES <1 IU/mL (<9)
== END 2021-11-01 09:01 | disposition home or self-care (01) ==
LOC: LAB 09:00
PROVIDERS: ATTEND Internal Medicine
DX: E06.9 Thyroiditis, unspecified (principal)
CPT/HCPCS: 36415; 84439; 84443; 84481; 86376; 86800

== ENCOUNTER 2021-12-01 06:40 | Outpatient (CLI) | payer MEDICARE, BC ==
[2021-12-01 07:16] LABS: CREATININE 0.8 mg/dL (0.6-1.2)
[2021-12-01] MEDS ORDERED: IOVERSOL 320 100 ML VIAL IVP ONE ×2 (07:19→07:47)
--- NOTE | 2021-12-01 11:14 | CT Report ---
PROCEDURE: SOFT TISSUE NECK W INDICATIONS: DYSPHAGIA CONTRAST: IV CONTRAST: Optiray 320 ml: 100 PO CONTRAST: *NO PO CONTRAST TECHNIQUE: After the administration of intravenous contrast, 3.0 mm axial sections acquired from the sella to th e aortic arch. Additional oblique axial 3.0 mm sections acquired through the pharynx. 3 mm thick co art reformats were generated. For radiation dose reduction, the following was used: automated exp osure control, adjustment of mA and/or kV according to patient size. COMPARISON: None. FINDINGS: Image quality: There is streak artifact seen through the level of the shoulders. Lymph nodes: No enlarged lymph nodes seen throughout the neck. Vessels: Visualized vasculature appears patent. Neck spaces: The patient has markedly level of clinical concern, with a BB marker seen on series 3 i mage 74. No focal abnormalities can be seen at this site. The oropharynx, nasopharynx, and pharynx demonstrate no mucosal lesions. The vocal cords, false voca l cords, pyriform sinuses, epiglottis, vallecula, and tongue base all appear normal. Extramucosal sp aces appear unremarkable. Glands: The parotid and submandibular glands appear normal. The thyroid is normal in size and there are no incidental findings. Miscellaneous: Visualized brain and orbits appear normal. Lung apices appear clear. Superficial so ft tissues appear normal. Bones: No suspicious bony lesions. Visualized sinuses and mastoids appear unremarkable. At least m oderate lower cervical spine degenerative changes are seen. IMPRESSION: No imaging explanation is found for the patient's presenting symptoms. Reviewed by: Woodrow Menjivar MD on 12/01/2021 10:12 AM JAKUB Approved by: Woodrow Menjivar MD on 12/01/2021 10:12 AM JAKUB Station ID: [id number]
== END 2021-12-01 06:41 | disposition home or self-care (01) ==
LOC: LAB 06:40
PROVIDERS: ATTEND Internal Medicine
DX: Z79.899 Other long term (current) drug therapy (principal); R13.10 Dysphagia, unspecified
CPT/HCPCS: 36415; 70491; 82565; Q9967

== ENCOUNTER 2021-12-21 08:01 | Emergency (ER) | payer MEDICARE, BC ==
--- OUTSIDE RECORDS SUMMARY | 2021-12-21 08:20 | EXTERNAL MEDICAL SUMMARY RPT | Continuity of Care Document ---
:1945 Author Organization [facility] Address [address] [place] [address] Phone Care Team Providers Name Role Phone Dannhaur Unavailable Unavailable Allergies No information. Encounters No information. Medications No information. Problems date description facility [id number] Acute pharyngitis, unspecified [facility] Results No information.
[2021-12-21 08:31] LABS: BASOPHILS # (AUTO) 0.1 10^3/uL (0.0-0.1); BASOPHILS % (AUTO) 0.9 %; EOSINOPHILS # (AUTO) 0.2 10^3/uL (0.0-0.7); EOSINOPHILS % (AUTO) 3.3 %; HCT - HEMATOCRIT 41.7 % (42.0-52.0); HGB - HEMOGLOBIN 14.1 g/dL (14.0-18.0); LYMPHOCYTES # (AUTO) 1.2 10^3/uL (1.5-3.5); LYMPHOCYTES % (AUTO) 21.9 %; MEAN CORPUSCULAR HEMOGLOBIN 31.3 pg (27.0-31.0); MEAN CORPUSCULAR HGB CONC 33.8 g/dL (32.0-36.0); MEAN CORPUSCULAR VOLUME 92.5 fL (80.0-94.0); MEAN PLATELET VOLUME 9.7 fL (7.4-11.4); MONOCYTES # (AUTO) 0.4 10^3/uL (0.0-1.0); MONOCYTES % (AUTO) 8.1 %; NEUTROPHILS # (AUTO) 3.6 10^3/uL (1.5-6.6); NEUTROPHILS % (AUTO) 65.4 %; PLT - PLATELET COUNT 149 10^3/uL (130-450); RED BLOOD COUNT 4.51 10^6/uL (4.70-6.10); RED CELL DISTRIBUTION WIDTH 12.9 % (12.0-15.0); WHITE BLOOD COUNT 5.4 x10^3/uL (4.8-10.8)
--- NOTE | 2021-12-21 08:31 | ED Physician Documentation ---
PD HPI CHEST PAIN - Stated complaint Stated Complaint: SOA,RASH,CHEST PX - History obtained from History obtained from: Patient - Additional information Additional information: Patient is a 76-year-old male with past medical significant for history of CAD, prostate carcinoma, osteoporosis and osteopenia presenting to the emergency department with chief complaint chest pain. Woke this morning, during his shower experienced pain in his left arm that radiated into his left chest. It was associated with shortness of breath. States that this is new and different pain and that he has not had similar pain in the past. Reports that pain has resolved but he still feels mildly short of breath. Does report recently receiving a new medication from his oncologist Dr. Mora however is unable to tell me what the medication is for. Only that it is associated with his ongoing treatment for his prostate carcinoma. Current medications include leuprolide and enzalutamide as well as were atorvastatin and daily aspirin. Review of Systems Ten Systems: 10 systems reviewed and negative Constitutional: denies: Fever Eyes: denies: Loss of vision Ears: denies: Loss of hearing Nose: denies: Rhinorrhea / runny nose Throat: denies: Dental pain / toothache Cardiac: reports: Chest pain / pressure Respiratory: reports: Dyspnea GI: denies: Abdominal Pain, Nausea, Vomiting, Constipation, Diarrhea : denies: Dysuria PD PAST MEDICAL HISTORY - Past Medical History Past Medical History: Yes Cardiovascular: Hypertension, High cholesterol, Coronary artery disease, [place], Other Respiratory: Asthma, Pneumonia Neuro: Head injury, Headaches, Tremors Endocrine/Autoimmune: HyPOthyroidism GI: GERD : Incontinence, Nocturia, Frequency, Other HEENT: None Psych: None Musculoskeletal: Osteoarthritis, Gout Derm: None - Past Surgical History Past Surgical History: Yes General: Appendectomy, Hiatal hernia repair, Other Cardiovascular: Coronary stent - Present Medications Home Medications: Ambulatory Orders Medication Instructions Recorded Confirmed Levothyroxine Sodium 137 mcg PO DAILY 04/13/14 12/21/21 Albuterol Sulfate [Albuterol 1 puffs INH Q6HR 12/23/14 12/21/21 Sulfate Hfa] Metoprolol Tartrate 12.5 mg PO BID 12/25/14 12/21/21 Nitroglycerin [Nitrostat] 0.4 mg SL Q5MIN PRN 01/08/17 12/21/21 Cholecalciferol (Vitamin D3) 2,000 unit PO DAILY 06/01/17 12/21/21 [Vitamin D3] Aspirin Chewable [St Radames 81 mg PO DAILY 12/01/18 12/21/21 Aspirin] Rosuvastatin Calcium [Crestor] 10 mg PO DAILY 12/01/18 12/21/21 Lisinopril [Zestril] 20 mg PO DAILY 11/02/19 12/21/21 Calcium Carbonate [Calcium] 1 cap PO DAILY 06/05/20 12/21/21 Leuprolide [Lupron] 30 mg IM .Q4 MONTH 06/05/20 12/21/21 Enzalutamide [Xtandi] 160 mg PO DAILY 01/22/21 12/21/21 - Allergies Allergies/Adverse Reactions: Allergies Allergy/AdvReac Type Severity Reaction Status Date / Time nitroglycerin AdvReac Severe Unknown Verified 12/21/21 08:20 colchicine AdvReac Unknown Verified 12/21/21 08:20 lactose AdvReac Nausea Verified 12/21/21 08:20 - Social History Does the pt smoke?: No Smoking Status: Never smoker Does the pt drink ETOH?: No Does the pt have substance abuse?: No - Immunizations Immunizations are current?: Yes - POLST Patient has POLST: No PD ED PE NORMAL - Vitals Vital signs reviewed: Yes - General General: Alert and oriented X 3 - HEENT HEENT: Atraumatic, PERRL, Moist mucous membranes - Neck Neck: Supple, no meningeal sign, No JVD - Cardiac Cardiac: RRR, No gallop, Strong equal pulses - Respiratory Respiratory: No respiratory distress - Abdomen Abdomen: Normal bowel sounds - Male Male : Deferred - Rectal Rectal: Deferred - Derm Derm: Normal color - Extremities Extremities: No deformity - Neuro Neuro: wrapper counter 2-12 intact, No motor deficit, No sensory deficit, Normal speech - Psych Psych: Normal mood Results - Vitals Vitals: Vital Signs - 24 hr 12/21/21 12/21/21 12/21/21 08:13 09:13 10:03 Temperature 36.5 C Heart Rate 76 76 65 Respiratory 19 21 15 Rate Blood Pressure 138/80 H 115/68 117/68 O2 Saturation 100 100 100 12/21/21 12/21/21 12/21/21 10:42 11:18 11:30 Temperature Heart Rate 60 60 61 Respiratory 15 16 13 Rate Blood Pressure 109/66 112/68 112/68 O2 Saturation 100 99 99 12/21/21 12/21/21 12:07 12:30 Temperature Heart Rate 70 60 Respiratory 18 17 Rate Blood Pressure 123/73 126/73 O2 Saturation 100 99 Oxygen O2 Source Room air - EKG (time done) 0804 Rate: Rate (enter#) (75) Rhythm: NSR [place]: Normal Intervals: Normal NV, QRS normal. No: Prolonged QT QRS: Normal Ischemia: Normal ST segments. No: Hyperacute T waves, T wave inversion Compare to prior EKG: Unchanged from prior EKG 1210 Rate: Rate (enter#) (59) Rhythm: NSR [place]: Normal Intervals: Normal NV, QRS normal. No: Prolonged QT QRS: Normal Ischemia: Normal ST segments. No: Hyperacute T waves, T wave inversion - Labs Labs: Laboratory Tests 12/21/21 12/21/21 12/21/21 08:19 08:36 08:36 WBC 5.4 RBC 4.51 L Hgb 14.1 Hct 41.7 L MCV 92.5 MCH 31.3 H MCHC 33.8 RDW 12.9 Plt Count 149 MPV 9.7 Neut # (Auto) 3.6 Lymph # (Auto) 1.2 L [place] # (Auto) 0.4 Eos # (Auto) 0.2 Baso # (Auto) 0.1 Absolute Nucleated RBC 0.00 Nucleated RBC % 0.0 Sodium 136 Potassium 4.3 Chloride 105 Carbon Dioxide 22 Anion Gap 9.0 BUN 13 Creatinine 0.8 Estimated GFR (MDRD) 94 Glucose 110 H Calcium 7.8 L Total Bilirubin 0.6 AST 16 ALT 13 Alkaline Phosphatase 63 Troponin I High Sens < 2.3 L Total Protein 6.8 Albumin 3.9 Globulin 2.9 Albumin/Globulin Ratio 1.3 Lipase 37 12/21/21 10:53 WBC RBC Hgb Hct MCV MCH MCHC RDW Plt Count MPV Neut # (Auto) Lymph # (Auto) [place] # (Auto) Eos # (Auto) Baso # (Auto) Absolute Nucleated RBC Nucleated RBC % Sodium Potassium Chloride Carbon Dioxide Anion Gap BUN Creatinine Estimated GFR (MDRD) Glucose Calcium Total Bilirubin AST ALT Alkaline Phosphatase Troponin I High Sens 2.3 Total Protein Albumin Globulin Albumin/Globulin Ratio Lipase PD MEDICAL DECISION MAKING - ED course Complexity details: reviewed results, re-evaluated patient, considered differential, d/w patient ED course: Patient is 76-year-old male presenting with chest pain in setting of known history of coronary artery. Patient was afebrile, hemoglobin stable on arrival to the emergency department. EKG is on above negative for indications of acute cardiac ischemia or dysrhythmia. Serial troponins negative. On reevaluation however patient reported that he was having some persistent chest tightness and I did order for CTA of his chest which was negative. Patient also reported that he had had a rash in his left arm and left upper extremity however no rash was appreciated on physical exam and this seems to have resolved either prior to arrival or immediately thereafter. Patient was monitored in the emergency department for several hours. Reported improvement in his symptoms. 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 Encouraged to return to the emergency department for any new or worsening symptoms. Departure - Departure Disposition: 01 Home, Self Care Clinical Impression: Chest pain, Rash Instructions: ED Chest Pain Atypical Unkn Cause Follow-Up: Brianna Jasso MD [Physician No Access] - Comments: Thank you for allowing us to care for you today at [facility]. All of the testing performed in the emergency department including both of your EKGs, your blood work and the CT scan performed of your chest were all very reassuring. I would like you to follow-up with your primary care doctor as well as with your package dyeing machine operator as soon as possible in order to make an appointment for medical recheck. If it anytime you have any new or worsening symptoms please return. Discharge Date/Time: 12/21/21 14:18
--- NOTE | 2021-12-21 08:47 | XRAY Report ---
PROCEDURE: Chest 1 View X-Ray INDICATIONS: Chest pain TECHNIQUE: One view of the chest was acquired. COMPARISON: 06/18/2017. FINDINGS: Surgical changes and devices: None. Lungs and pleura: No pleural effusions or pneumothorax. Lungs are clear. Mediastinum: Mediastinal contours appear normal. Heart size is normal. Bones and chest wall: No suspicious bony lesions. Overlying soft tissues appear unremarkable. IMPRESSION: No acute cardiopulmonary disease process. Reviewed by: Maricel Ledezma MD, PhD on 12/21/2021 8:46 AM PDT Approved by: Maricel Ledezma MD, PhD on 12/21/2021 8:46 AM PDT Station ID: [id number]
[2021-12-21 09:00] LABS: ALBUMIN 3.9 g/dL (3.2-5.5); ALBUMIN/GLOBULIN RATIO 1.3 (1.0-2.2); BILIRUBIN,TOTAL 0.6 mg/dL (0.2-1.0); CALCIUM 7.8 mg/dL (8.5-10.3); CREATININE 0.8 mg/dL (0.6-1.2); POTASSIUM 4.3 mmol/L (3.5-5.0); TOTAL PROTEIN 6.8 g/dL (6.7-8.2)
[2021-12-21] MEDS ORDERED: SODIUM CHLORIDE 0.9% 500 ML IV STA (12:07)
[2021-12-21 12:35] VITALS: BP 126/73
[2021-12-21] MEDS ORDERED: IOVERSOL 320 100 ML VIAL IVP ONE ×2 (12:47→13:10)
--- NOTE | 2021-12-21 13:18 | CT Report ---
PROCEDURE: ANGIO CHEST W/WO INDICATIONS: Rule out PE CONTRAST: IV CONTRAST: Optiray 320 ml: 80 PO CONTRAST: *NO PO CONTRAST TECHNIQUE: After the administration of intravenous contrast, 2 mm axial images were acquired from the pulmonary apices to the posterior costophrenic angles during the arterial phase. In addition, 1 mm lung kernel and 5 mm soft tissue kernel reconstructions were performed. 3-dimensional coronal oblique maximum int ensity projection (MIP) reformats, 8 mm axial MIP, and 5 mm coronal and sagittal MPR reformats were t hen performed through the thorax. For radiation dose reduction, the following was used: automated exp osure control, adjustment of mA and/or kV according to patient size. COMPARISON: Prior chest CT, 12/14/2021. Correlation is also made with the accompanying chest radiogra ph, 12/21/2021. FINDINGS: Image quality: Excellent. Pulmonary arteries: Pulmonary arteries are normal in size, and demonstrate no intraluminal filling d efects to suggest central pulmonary embolism. Lungs and pleura: Mild dependent atelectasis can be seen. No pleural effusions or pneumothorax. Megan tral and peripheral airways are patent. Mediastinum: Prominent coronary artery calcification is seen. Heart size is normal, without pericardi al effusion. No mediastinal or hilar adenopathy. Thoracic aorta is normal in caliber and enhancemen t. Esophagus is normal in caliber, without hiatal hernia. Bones and chest wall: No suspicious bony lesions. Age-appropriate degenerative changes are seen. R ibs and thoracic spine appear intact throughout. No axillary or supraclavicular adenopathy. The thy roid is normal in size and there are no incidental findings. Abdomen: Visualized upper abdominal solid organs appear normal in the early arterial phase of enhanc ement. IMPRESSION: Negative for pulmonary embolism. Incidental note is made of: Prominent coronary artery calcification Apparent mild dependent atelectasis Reviewed by: Woodrow Menjivar MD on 12/21/2021 12:17 PM JAKUB Approved by: Woodrow Menjivar MD on 12/21/2021 12:17 PM [email or web address] Station ID: [id number]
== END 2021-12-21 14:18 | disposition home or self-care (01) ==
LOC: ED 08:01
DX: R07.9 Chest pain, unspecified (principal)
CPT/HCPCS: 36415; 71045; 71275; 80053; 83690; 84484; 85025; 93005; 99282; 99284; Q9967

== ENCOUNTER 2021-12-23 08:36 | Outpatient (CLI) | payer MEDICARE, BC ==
--- NOTE | 2021-12-23 17:13 | Nuclear Medicine Report ---
PROCEDURE: Bone Whole Body INDICATIONS: PERSONAL HISTORY OF MALIGNANT NEOPLASM OF PROSTATE RADIOPHARMACEUTICAL: 25.6 mCi Tc-99m MDP IV. TECHNIQUE: Delayed whole-body scintigrams were obtained approximately 3-4 hours after intravenous injection of r adiotracer. Anterior and posterior views were acquired from vertex to feet. Additional left and rig ht oblique views of the skull were obtained. COMPARISON: CT chest 12/21/[address] abdomen pelvis 12/14/2021. FINDINGS: Physiologic uptake is noted within the kidneys and bladder. Minimal areas of increased upt xiang are noted within the first CMC joint as well as knees and small bones of the feet most consistent with degenerative change. No definitive areas of uptake concerning for metastatic disease are identi fied. IMPRESSION: Areas of degenerative uptake are noted. No definitive uptake consistent with metastatic disease. Reviewed by: Karmen Tobias MD on 12/23/2021 5:12 PM PDT Approved by: Karmen Tobias MD on 12/23/2021 5:12 PM PDT Station ID: [id number]
== END 2021-12-23 08:37 | disposition home or self-care (01) ==
LOC: DI 08:36
PROVIDERS: ATTEND Internal Medicine
DX: E06.9 Thyroiditis, unspecified (principal); Z85.46 Personal history of malignant neoplasm of prostate
CPT/HCPCS: 78306

== ENCOUNTER 2022-01-06 07:51 | Emergency (ER) | payer MEDICARE, BC ==
--- NOTE | 2022-01-06 07:56 | ED Physician Documentation ---
PD HPI CHEST PAIN - Stated complaint Stated Complaint: DIZZINESS,HEART PALP - History obtained from History obtained from: Patient - History of Present Illness Timing - onset: Today Timing - onset during: Light activity Timing - duration: Hours Timing - details: Gradual onset (Onset this morning of a feeling of itching and burning in his arms and legs with a feeling of swelling in his hands. Some scratchiness in his throat but no trouble breathing or swallowing. Some tightness in his chest. Concern for allergic reaction to new medication.), Still present Quality: Pressure, Tightness Location: Substernal Radiation: No: Jaw, Neck, Back Associated symptoms: Other (itching and burning skin in extremities. Scratchy throat.). No: Shortness of air, Nausea, Feeling faint / dizzy Similar symptoms before: Has not had sx before Recently seen: Clinic (Recently seen by his business economist with concern for worsening heart failure. Recent echo showed ejection fraction of 30% down from 45%. Had medication changed 2 days ago from lisinopril to Entresto.) Review of Systems Constitutional: denies: Fever, Chills, Myalgias Nose: denies: Rhinorrhea / runny nose, Congestion Throat: denies: Sore throat Cardiac: denies: Palpitations, Pedal edema Respiratory: denies: Cough, Wheezing GI: denies: Abdominal Pain, Nausea, Vomiting Skin: reports: Rash (this morning, mild itching/hives.) PD PAST MEDICAL HISTORY - Past Medical History Cardiovascular: Hypertension, High cholesterol, Coronary artery disease, [place], Other Respiratory: Asthma, Pneumonia Neuro: Head injury, Headaches, Tremors Endocrine/Autoimmune: HyPOthyroidism GI: GERD : Incontinence, Nocturia, Frequency, Other HEENT: None Psych: None Musculoskeletal: Osteoarthritis, Gout Derm: None - Past Surgical History Past Surgical History: Yes General: Appendectomy, Hiatal hernia repair, Other Cardiovascular: Coronary stent - Present Medications Home Medications: Ambulatory Orders Medication Instructions Recorded Confirmed Levothyroxine Sodium 137 mcg PO DAILY 04/13/14 01/05/22 Albuterol Sulfate [Albuterol 1 puffs INH Q6HR 12/23/14 01/05/22 Sulfate Hfa] Nitroglycerin [Nitrostat] 0.4 mg SL Q5MIN PRN 01/08/17 01/05/22 Cholecalciferol (Vitamin D3) 2,000 unit PO DAILY 06/01/17 01/05/22 [Vitamin D3] Aspirin Chewable [St Radames 81 mg PO DAILY 12/01/18 01/05/22 Aspirin] Rosuvastatin Calcium [Crestor] 10 mg PO DAILY 12/01/18 01/05/22 Calcium Carbonate [Calcium] 1 cap PO DAILY 06/05/20 01/05/22 Leuprolide [Lupron] 30 mg IM .Q4 MONTH 06/05/20 01/05/22 Enzalutamide [Xtandi] 160 mg PO DAILY 01/22/21 01/05/22 Sacubitril/Valsartan [Entresto 24 1 each PO DAILY 01/05/22 01/05/22 mg-26 mg Tablet] Cetirizine [ZyrTEC] 10 mg PO BID #10 tablet 01/06/22 dexAMETHasone [Decadron] 4 mg PO DAILY #3 tablet 01/06/22 - Allergies Allergies/Adverse Reactions: Allergies Allergy/AdvReac Type Severity Reaction Status Date / Time nitroglycerin AdvReac Severe Unknown Verified 01/06/22 08:11 colchicine AdvReac Unknown Verified 01/06/22 08:11 lactose AdvReac Nausea Verified 01/06/22 08:11 - Social History Does the pt smoke?: No Smoking Status: Never smoker Does the pt drink ETOH?: No Does the pt have substance abuse?: No - Immunizations Immunizations are current?: Yes - POLST Patient has POLST: No PD ED PE NORMAL - Vitals Vital signs reviewed: Yes - General General: Alert and oriented X 3, No acute distress, Well developed/nourished - HEENT HEENT: Ears normal, Moist mucous membranes, Pharynx benign (with minimal uvular edema. Normal voice. ) - Neck Neck: Supple, no meningeal sign, No JVD - Cardiac Cardiac: RRR, No murmur - Respiratory Respiratory: Clear bilaterally - Abdomen Abdomen: Soft, Non tender - Derm Derm: Normal color, Warm and dry - Extremities Extremities: Other (faint blotchy red rash on extremities particularly, some on chest. ) - Neuro Neuro: Alert and oriented X 3, No motor deficit, No sensory deficit Results - Vitals Vitals: Vital Signs - 24 hr 01/06/22 01/06/22 01/06/22 08:03 08:30 09:00 Temperature 36.4 C L Heart Rate 71 66 65 Respiratory 19 14 15 Rate Blood Pressure 135/76 H 129/68 111/75 O2 Saturation 99 95 95 01/06/22 09:30 Temperature Heart Rate 64 Respiratory 15 Rate Blood Pressure 107/64 O2 Saturation 97 Oxygen O2 Source Room air - Labs Labs: Laboratory Tests 01/06/22 01/06/22 01/06/22 08:20 08:20 08:20 WBC 5.0 RBC 4.60 L Hgb 14.8 Hct 42.7 MCV 92.8 MCH 32.2 H MCHC 34.7 RDW 12.8 Plt Count 159 MPV 9.2 Neut # (Auto) 3.4 Lymph # (Auto) 1.0 L [place] # (Auto) 0.4 Eos # (Auto) 0.1 Baso # (Auto) 0.1 Absolute Nucleated RBC 0.00 Nucleated RBC % 0.0 Sodium 138 Potassium 4.2 Chloride 102 Carbon Dioxide 26 Anion Gap 10.0 BUN 19 Creatinine 0.7 Estimated GFR (MDRD) 110 Glucose 146 H Calcium 8.7 Magnesium 2.1 Total Bilirubin 0.8 AST 15 ALT 12 Alkaline Phosphatase 60 B-Natriuretic Peptide 33 Total Protein 6.6 L Albumin 4.1 Globulin 2.5 Albumin/Globulin Ratio 1.6 Lipase 37 Departure - Departure Disposition: 01 Home, Self Care Clinical Impression: Allergic reaction caused by a drug Qualifiers: Encounter type: initial encounter Qualified Code(s): T78.40XA - Allergy, unspecified, initial encounter Condition: Stable Record reviewed to determine appropriate education?: Yes Instructions: ED Drug React Allergic Follow-Up: Elise Bates MD [Primary Care Provider] - Prescriptions: dexAMETHasone [Decadron] 4 mg PO DAILY #3 tablet Cetirizine [ZyrTEC] 10 mg PO BID #10 tablet Comments: I talked with Dr. Jasso who wants you to hold the Entresto new medicine. She is going to prescribe valsartan alone as the reaction is most likely to the newer medication and that combination. Use cetirizine antihistamine twice daily for the next several days. Decadron steroid for the next 3 days. This should help reduce the allergic reaction. Add Benadryl if needed for itching or rash. Your business economist believes the reaction to the medicine may have been because the prior lisinopril had not gotten out of your system fully. She would like you to resume the Entresto (and not take the Valsartan) on January 22, the day before your appointment with her on January 23. This would allow the opportunity to see if you have any itchiness or reaction again to see if it truly is allergy to it. I transmitted your prescriptions to [facility] pharmacy. Dr. Jasso was going to transmit the new prescription for the valsartan 80 mg daily. Discharge Date/Time: 01/06/22 09:56
--- OUTSIDE RECORDS SUMMARY | 2022-01-06 08:17 | EXTERNAL MEDICAL SUMMARY RPT | Continuity of Care Document ---
:1945 Author Organization [place] Address [address] [place] [address] Phone Care Team Providers Name Role Phone Dannhaur Unavailable Unavailable Allergies No information. Encounters No information. Medications No information. Problems date description facility [id number] Atherosclerotic heart disease of [facility] with [id number] Acute pharyngitis, unspecified [facility] Results No information.
[2022-01-06 08:30] LABS: BASOPHILS # (AUTO) 0.1 10^3/uL (0.0-0.1); BASOPHILS % (AUTO) 1.2 %; EOSINOPHILS # (AUTO) 0.1 10^3/uL (0.0-0.7); EOSINOPHILS % (AUTO) 2.4 %; HCT - HEMATOCRIT 42.7 % (42.0-52.0); HGB - HEMOGLOBIN 14.8 g/dL (14.0-18.0); LYMPHOCYTES % (AUTO) 20.5 %; MEAN CORPUSCULAR HEMOGLOBIN 32.2 pg (27.0-31.0); MEAN CORPUSCULAR HGB CONC 34.7 g/dL (32.0-36.0); MEAN CORPUSCULAR VOLUME 92.8 fL (80.0-94.0); MEAN PLATELET VOLUME 9.2 fL (7.4-11.4); MONOCYTES # (AUTO) 0.4 10^3/uL (0.0-1.0); MONOCYTES % (AUTO) 7.2 %; NEUTROPHILS # (AUTO) 3.4 10^3/uL (1.5-6.6); NEUTROPHILS % (AUTO) 68.1 %; PLT - PLATELET COUNT 159 10^3/uL (130-450); RED CELL DISTRIBUTION WIDTH 12.8 % (12.0-15.0)
[2022-01-06] MEDS: CETIRIZINE 10 MG TABLET PO STA (08:31)
[2022-01-06] MEDS: diphenhydrAMINE INJ 50 MG/ML VIAL IVP STA (08:32)
[2022-01-06] MEDS: DEXAMETHASONE 10 MG/ML VIAL IVP STA (08:36)
[2022-01-06 08:42] LABS: ALBUMIN 4.1 g/dL (3.2-5.5); ALBUMIN/GLOBULIN RATIO 1.6 (1.0-2.2); BILIRUBIN,TOTAL 0.8 mg/dL (0.2-1.0); CALCIUM 8.7 mg/dL (8.5-10.3); CREATININE 0.7 mg/dL (0.6-1.2); MAGNESIUM 2.1 mg/dL (1.7-2.8); POTASSIUM 4.2 mmol/L (3.5-5.0); TOTAL PROTEIN 6.6 g/dL (6.7-8.2)
[2022-01-06 09:38] VITALS: BP 107/64
== END 2022-01-06 09:56 | disposition home or self-care (01) ==
LOC: ED 07:51
DX: R42 Dizziness and giddiness (principal); R07.89 Other chest pain; T50.905A Adverse effect of unspecified drugs, medicaments and biological substances, initial encounter; I10 Essential (primary) hypertension
CPT/HCPCS: 36415; 80053; 83690; 83735; 83880; 85025; 93005; 96374; 96375; 99284; A9270; J1200

== ENCOUNTER 2022-01-12 20:36 | Emergency (ER) | payer MEDICARE, BC ==
--- OUTSIDE RECORDS SUMMARY | 2022-01-12 21:23 | EXTERNAL MEDICAL SUMMARY RPT | Continuity of Care Document ---
:1945 Author Organization [place] Address [address] [place] [address] Phone Care Team Providers Name Role Phone Elise Ferraro Unavailable Unavailable Allergies No information. Encounters No information. Medications No information. Problems date description facility [id number] Atherosclerotic heart disease of [facility] with [id number] Acute pharyngitis, unspecified [facility] Results No information.
--- NOTE | 2022-01-12 21:34 | XRAY Report ---
PROCEDURE: Chest 1 View X-Ray INDICATIONS: CP TECHNIQUE: One view of the chest was acquired. COMPARISON: 12/21/2021 FINDINGS: Surgical changes and devices: None. Lungs and pleura: No pleural effusions or pneumothorax. Lungs are clear. Mediastinum: Mediastinal contours appear normal. Heart size is normal. Bones and chest wall: No suspicious bony lesions. Overlying soft tissues appear unremarkable. IMPRESSION: Stable chest without acute cardiopulmonary disease. Reviewed by: Kristan Salgado MD on 01/12/2022 9:33 PM PDT Approved by: Kristan Salgado MD on 01/12/2022 9:33 PM PDT Station ID: [id number]
[2022-01-12 21:46] LABS: BASOPHILS # (AUTO) 0.1 10^3/uL (0.0-0.1); EOSINOPHILS # (AUTO) 0.2 10^3/uL (0.0-0.7); EOSINOPHILS % (AUTO) 3.8 %; HCT - HEMATOCRIT 41.4 % (42.0-52.0); LYMPHOCYTES # (AUTO) 1.4 10^3/uL (1.5-3.5); LYMPHOCYTES % (AUTO) 22.1 %; MEAN CORPUSCULAR HEMOGLOBIN 30.8 pg (27.0-31.0); MEAN CORPUSCULAR HGB CONC 33.8 g/dL (32.0-36.0); MEAN CORPUSCULAR VOLUME 91.2 fL (80.0-94.0); MEAN PLATELET VOLUME 9.3 fL (7.4-11.4); MONOCYTES # (AUTO) 0.6 10^3/uL (0.0-1.0); MONOCYTES % (AUTO) 9.7 %; NEUTROPHILS % (AUTO) 62.9 %; PLT - PLATELET COUNT 159 10^3/uL (130-450); RED BLOOD COUNT 4.54 10^6/uL (4.70-6.10); WHITE BLOOD COUNT 6.3 x10^3/uL (4.8-10.8)
[2022-01-12 22:02] LABS: ALBUMIN/GLOBULIN RATIO 1.7 (1.0-2.2); BILIRUBIN,TOTAL 0.5 mg/dL (0.2-1.0); CALCIUM 8.8 mg/dL (8.5-10.3); CREATININE 0.7 mg/dL (0.6-1.2); TOTAL PROTEIN 6.4 g/dL (6.7-8.2)
[2022-01-12] MEDS ORDERED: ACETAMINOPHEN 325 MG TABLET PO STA (22:14)
--- NOTE | 2022-01-12 22:17 | ED Physician Documentation ---
History of Present Illness - Stated complaint Stated Complaint: RT SIDE EYE AURA - Chief complaint Chief Complaint: Neuro - History obtained from History obtained from: Patient, Family (Patient's ) - Additonal information Additional information: Patient is a 76-year-old male with a history significant for hypertension and heart failure presenting for evaluation after an episode of visual aura. Antonina thomas was sitting watching TV approximately 30 minutes prior to arrival when he noticed streaks of color in his right peripheral vision that he describes as a streak of blue, orange, white. There was no flashing Component to this.He was able to ambulate around and denied other issues with his vision. 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 He reports his hea dache is frontal and feels like pressure but again feels like his usual headache.He reports that the visual aura lasted 3 minutes and then resolved.He currently denies any abnormal vision changes, dizziness,Focal weakness. He does report having chest pressure all day which he gets at times when the weather changes and there is a storm coming. He denies radiation to this pressure. He denies difficulty breathing, abdominal pain, vomiting, diarrhea.He has recently had medication changes due to allergic reaction. He was taken off of lisinopril and changed to Entresto due to recent findings of decreased ejection fraction. However he developed a rash with the Entresto and was changed to valsartan. He is on Decadron and cetirizine for the allergic reaction. Review of Systems Constitutional: denies: Fever Eyes: denies: Loss of vision, Decreased vision, Photophobia, Discharge Nose: denies: Congestion Cardiac: reports: Chest pain / pressure. denies: Palpitations Respiratory: denies: Dyspnea, Cough GI: denies: Abdominal Pain, Vomiting Musculoskeletal: denies: Back pain Neurologic: reports: Headache. denies: Syncope, Head injury PD PAST MEDICAL HISTORY - Past Medical History Cardiovascular: Hypertension, High cholesterol, Coronary artery disease, [place], Other Respiratory: Asthma, Pneumonia Neuro: Head injury, Headaches, Tremors Endocrine/Autoimmune: HyPOthyroidism GI: GERD : Incontinence, Nocturia, Frequency, Other HEENT: None Psych: None Musculoskeletal: Osteoarthritis, Gout Derm: None - Past Surgical History Past Surgical History: Yes General: Appendectomy, Hiatal hernia repair, Other Cardiovascular: Coronary stent - Present Medications Home Medications: Ambulatory Orders Medication Instructions Recorded Confirmed Levothyroxine Sodium 137 mcg PO DAILY 04/13/14 01/05/22 Albuterol Sulfate [Albuterol 1 puffs INH Q6HR 12/23/14 01/05/22 Sulfate Hfa] Nitroglycerin [Nitrostat] 0.4 mg SL Q5MIN PRN 01/08/17 01/05/22 Cholecalciferol (Vitamin D3) 2,000 unit PO DAILY 06/01/17 01/05/22 [Vitamin D3] Aspirin Chewable [St Radames 81 mg PO DAILY 12/01/18 01/05/22 Aspirin] Rosuvastatin Calcium [Crestor] 10 mg PO DAILY 12/01/18 01/05/22 Calcium Carbonate [Calcium] 1 cap PO DAILY 06/05/20 01/05/22 Leuprolide [Lupron] 30 mg IM .Q4 MONTH 06/05/20 01/05/22 Enzalutamide [Xtandi] 160 mg PO DAILY 01/22/21 01/05/22 Sacubitril/Valsartan [Entresto 24 1 each PO DAILY 01/05/22 01/05/22 mg-26 mg Tablet] Cetirizine [ZyrTEC] 10 mg PO BID #10 tablet 01/06/22 dexAMETHasone [Decadron] 4 mg PO DAILY #3 tablet 01/06/22 - Allergies Allergies/Adverse Reactions: Allergies Allergy/AdvReac Type Severity Reaction Status Date / Time nitroglycerin AdvReac Severe Unknown Verified 01/12/22 20:42 colchicine AdvReac Unknown Verified 01/12/22 20:42 lactose AdvReac Nausea Verified 01/12/22 20:42 - Social History Does the pt smoke?: No Smoking Status: Never smoker Does the pt drink ETOH?: No Does the pt have substance abuse?: No - Immunizations Immunizations are current?: Yes - POLST Patient has POLST: No PD ED PE NORMAL - General General: Alert and oriented X 3, No acute distress, Well developed/nourished - HEENT HEENT: Atraumatic, PERRL, EOMI, Moist mucous membranes, Pharynx benign, Other (No issue with visual odonnell) - Neck Neck: Supple, no meningeal sign - Cardiac Cardiac: RRR, No murmur, Strong equal pulses - Respiratory Respiratory: No respiratory distress, Clear bilaterally - Abdomen Abdomen: Normal bowel sounds, Soft, Non tender - Derm Derm: Normal color - Extremities Extremities: No deformity, No edema - Neuro Neuro: Alert and oriented X 3, 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 No: Subconj hemorrhage (Funduscopic exam Attempted but limited due to lack of eye dilatation), Hyphema Results - Vitals Vitals: Vital Signs - 24 hr 01/12/22 01/12/22 20:42 22:23 Temperature 36.5 C Heart Rate 66 67 Respiratory 16 16 Rate Blood Pressure 130/70 115/62 O2 Saturation 99 99 Oxygen O2 Source Room air - EKG (time done) 2122 Rate: Rate (enter#) (64) Rhythm: NSR [place]: Normal Ischemia: No: ST elevation c/w ischemia - Labs Labs: Laboratory Tests 01/12/22 01/12/22 01/12/22 21:41 21:41 21:41 WBC 6.3 RBC 4.54 L Hgb 14.0 Hct 41.4 L MCV 91.2 MCH 30.8 MCHC 33.8 RDW 13.0 Plt Count 159 MPV 9.3 Neut # (Auto) 4.0 Lymph # (Auto) 1.4 L [place] # (Auto) 0.6 Eos # (Auto) 0.2 Baso # (Auto) 0.1 Absolute Nucleated RBC 0.00 Nucleated RBC % 0.0 Sodium 136 Potassium 4.0 Chloride 103 Carbon Dioxide 23 Anion Gap 10.0 BUN 18 Creatinine 0.7 Estimated GFR (MDRD) 110 Glucose 119 H Calcium 8.8 Total Bilirubin 0.5 AST 15 ALT 12 Alkaline Phosphatase 53 Troponin I High Sens 3.5 Total Protein 6.4 L Albumin 4.0 Globulin 2.4 Albumin/Globulin Ratio 1.7 PD MEDICAL DECISION MAKING - ED course Complexity details: reviewed results, re-evaluated patient, d/w patient, d/w family ED course: Patient presenting for evaluation of 2 complaints. Patient had report of visual aura prior to arrival that has since resolved. He does have a history of headaches, Or could be related to ocular migraine.Headache is unchanged though from previous and no abnormal neurologic deficits noted on exam Suggesting need for emergent head CT. Visual acuity intact and patient does not report having any abnormal vision changes currently or were during his observation period in the emergency department. Funduscopic exam was limited. I did also consider retinalEtiology as cause of his symptoms and recommended close follow-up with assignment officer. Patient also reports having chest pressure that he gets with changes to barometric pressure. EKG is reassuring without signs of acute ischemia. High- sensitivity troponin is negative and patient has had symptoms greater than 6 hours. PatientIs feeling better while in the emergency department. He is understanding of need for close follow-up with his primary care doctor as well as an assignment officer. is at the bedside and also reviewed these instructions with her. He is aware of return precautions. Departure - Departure Disposition: 01 Home, Self Care Clinical Impression: Visual aura, Chest pressure Condition: Stable Instructions: Vision Probs, ED Chest Pain Atypical Unkn Cause Follow-Up: Bernardo Hilario MD [Provider Admit Priv/Credential] - Comments: David who evaluated for 2 conditions today. Your evaluated for chest pressure and at this time it does not appear to be related to a heart attack. Please continue to take your medications as prescribed by your district or district office director and have close follow-up. Please return to the emergency department if you feel that your chest pressure is worsening or you develop new symptoms such as difficulty breathing, dizziness. You were also evaluated for having had a visual aura in your right eye earlier today. At this time it seems that your symptoms have resolved and have not recurred. Sometimes these episodes can be related to migraines. However I believe you should have close follow-up with an assignment officer as you may need a better exam of your retina to make sure that this is not the cause of your abnormal vision changes that you had earlier today. Please return to the emergency department if your symptoms return, you have any vision loss, double vision, blurry vision, worsening headache, weakness to 1 part of your body or any concerns. Please follow-up with Dr. Hilario At [facility]. Please call tomorrow for an appointment to be seen as soon as possible. Discharge Date/Time: 01/12/22 22:24
[2022-01-12 22:25] VITALS: BP 115/62
== END 2022-01-12 22:24 | disposition home or self-care (01) ==
LOC: ED 20:36
DX: H53.8 Other visual disturbances (principal); R07.89 Other chest pain
CPT/HCPCS: 36415; 71045; 80053; 84484; 85025; 93005; 99284; A9270

== ENCOUNTER 2022-03-08 20:01 | Emergency (ER) | payer MEDICARE, BC ==
[2022-03-08 20:22] VITALS: BP 129/75
--- NOTE | 2022-03-08 20:45 | ED Physician Documentation ---
PD HPI ABD PAIN - Stated complaint Stated Complaint: MALE - Chief complaint Chief Complaint: Abd Pain - History obtained from History obtained from: Patient - Additional information Additional information: Patient is a 76-year-old male with lower abdominal pain that has been present for 2 hours. He describes the pain as sharp. Nothing makes it better or worse. He denies nausea, vomiting, abnormal urination, diarrhea or constipation. He tried Tylenol without improvement in his symptoms.He has been moving furniture today. He denies blood in his urine. He does have a history of hernia repair last year.He denies fever, chest pain, difficulty breathing, back pain, lower extremity pain. Review of Systems Constitutional: denies: Fever Nose: denies: Congestion Cardiac: denies: Chest pain / pressure Respiratory: denies: Dyspnea, Cough GI: reports: Abdominal Pain. denies: Vomiting, Constipation, Diarrhea : denies: Dysuria, Hematuria Skin: denies: Rash Musculoskeletal: denies: Back pain Neurologic: denies: Headache PD PAST MEDICAL HISTORY - Past Medical History Cardiovascular: Hypertension, High cholesterol, Coronary artery disease, [place], Other Respiratory: Asthma, Pneumonia Neuro: Head injury, Headaches, Tremors Endocrine/Autoimmune: HyPOthyroidism GI: GERD : Incontinence, Nocturia, Frequency, Other HEENT: None Psych: None Musculoskeletal: Osteoarthritis, Gout Derm: None - Past Surgical History Past Surgical History: Yes General: Appendectomy, Hiatal hernia repair, Other Cardiovascular: Coronary stent - Present Medications Home Medications: Ambulatory Orders Medication Instructions Recorded Confirmed Levothyroxine Sodium 137 mcg PO DAILY 04/13/14 01/05/22 Albuterol Sulfate [Albuterol 1 puffs INH Q6HR 12/23/14 01/05/22 Sulfate Hfa] Nitroglycerin [Nitrostat] 0.4 mg SL Q5MIN PRN 01/08/17 01/05/22 Cholecalciferol (Vitamin D3) 2,000 unit PO DAILY 06/01/17 01/05/22 [Vitamin D3] Aspirin Chewable [St Radames 81 mg PO DAILY 12/01/18 01/05/22 Aspirin] Rosuvastatin Calcium [Crestor] 10 mg PO DAILY 12/01/18 01/05/22 Calcium Carbonate [Calcium] 1 cap PO DAILY 06/05/20 01/05/22 Leuprolide [Lupron] 30 mg IM .Q4 MONTH 06/05/20 01/05/22 Enzalutamide [Xtandi] 160 mg PO DAILY 01/22/21 01/05/22 Sacubitril/Valsartan [Entresto 24 1 each PO DAILY 01/05/22 01/05/22 mg-26 mg Tablet] Cetirizine [ZyrTEC] 10 mg PO BID #10 tablet 01/06/22 dexAMETHasone [Decadron] 4 mg PO DAILY #3 tablet 01/06/22 - Allergies Allergies/Adverse Reactions: Allergies Allergy/AdvReac Type Severity Reaction Status Date / Time nitroglycerin AdvReac Severe Unknown Verified 03/08/22 20:22 colchicine AdvReac Unknown Verified 03/08/22 20: lactose AdvReac Nausea Verified 03/08/22 20:22 - Social History Does the pt smoke?: No Smoking Status: Never smoker Does the pt drink ETOH?: No Does the pt have substance abuse?: No - Immunizations Immunizations are current?: Yes - POLST Patient has POLST: No PD ED PE NORMAL - General General: Alert and oriented X 3, No acute distress, Well developed/nourished - HEENT HEENT: Atraumatic, Moist mucous membranes - Neck Neck: Supple, no meningeal sign - Cardiac Cardiac: RRR, No murmur, Strong equal pulses - Respiratory Respiratory: No respiratory distress, Clear bilaterally - Abdomen Abdomen: Normal bowel sounds, Soft, Non distended, Other (No hernia or masses noted, Left lower quadrant tenderness, No rebound, no guarding). No: Non tender - Back Back: No CVA TTP - Derm Derm: Warm and dry - Extremities Extremities: No edema - Neuro Neuro: Normal speech - Psych Psych: Normal mood Results - Vitals Vitals: Vital Signs - 24 hr 03/08/22 03/08/22 20:16 20:21 Temperature 36.5 C 36.5 C Heart Rate 65 65 Respiratory 14 14 Rate Blood Pressure 129/75 129/75 O2 Saturation 100 100 Oxygen O2 Source Room air - Labs Labs: Laboratory Tests 03/08/22 03/08/22 03/08/22 20:42 20:42 20:57 WBC 5.0 RBC 4.47 L Hgb 13.7 L Hct 40.9 L MCV 91.5 MCH 30.6 MCHC 33.5 RDW 12.6 Plt Count 149 MPV 9.0 Neut # (Auto) 3.1 Lymph # (Auto) 1.4 L [place] # (Auto) 0.5 Eos # (Auto) 0.1 Baso # (Auto) 0.1 Absolute Nucleated RBC 0.00 Nucleated RBC % 0.0 Sodium 139 Potassium 3.9 Chloride 103 Carbon Dioxide 28 Anion Gap 8.0 BUN 17 Creatinine 0.8 Estimated GFR (MDRD) 94 Glucose 96 Calcium 8.9 Total Bilirubin 0.3 AST 13 ALT 12 Alkaline Phosphatase 42 Total Protein 6.6 L Albumin 4.0 Globulin 2.6 Albumin/Globulin Ratio 1.5 Lipase 36 Urine Color YELLOW Urine Clarity CLEAR Urine pH 6.0 Ur Specific [place] 1.020 Urine Protein NEGATIVE Urine Glucose (UA) NEGATIVE Urine Ketones NEGATIVE Urine Occult Blood NEGATIVE Urine Nitrite NEGATIVE Urine Bilirubin NEGATIVE Urine Urobilinogen 0.2 (NORMAL) Ur Leukocyte Esterase NEGATIVE Ur Microscopic Review NOT INDICATED Urine Culture Comments NOT INDICATED PD MEDICAL DECISION MAKING - ED course Complexity details: reviewed results, re-evaluated patient, d/w patient ED course: Patient evaluated for lower abdominal pain present for 2 hours. Vital signs reassuring. Labs unremarkable. CT scan was obtained And negative for any acute findings. Patient was offered pain medication for his symptoms but declined. He was agreeable to trial of a lidocaine patch in the event that it is related to muscle strain from recent moving of furniture around his home. Reviewed findings with patient and his . He is eager for discharge home and aware of strict return precautions. Due to global and hospital shortage of IV contrast related to Covid [address], [address] scan ordered without contrast. Departure - Departure Disposition: 01 Home, Self Care Clinical Impression: Lower abdominal pain Condition: Stable Instructions: ED Abdominal Pain Unkn Cause Male Comments: You were evaluated for lower abdominal pain. Blood work and a CT scan did not reveal a cause of your pain. We did apply a lidocaine patch which can stay on for 12 hours in case the pain is related to a muscle strain. Please follow up with your doctor in 2-3 days if your symptoms do not improve. Please return to the ER with any worsening symptoms. Discharge Date/Time: 03/08/22 22:20
[2022-03-08 20:50] LABS: BASOPHILS # (AUTO) 0.1 10^3/uL (0.0-0.1); EOSINOPHILS # (AUTO) 0.1 10^3/uL (0.0-0.7); EOSINOPHILS % (AUTO) 1.8 %; HCT - HEMATOCRIT 40.9 % (42.0-52.0); HGB - HEMOGLOBIN 13.7 g/dL (14.0-18.0); LYMPHOCYTES # (AUTO) 1.4 10^3/uL (1.5-3.5); LYMPHOCYTES % (AUTO) 26.9 %; MEAN CORPUSCULAR HEMOGLOBIN 30.6 pg (27.0-31.0); MEAN CORPUSCULAR HGB CONC 33.5 g/dL (32.0-36.0); MEAN CORPUSCULAR VOLUME 91.5 fL (80.0-94.0); MONOCYTES # (AUTO) 0.5 10^3/uL (0.0-1.0); MONOCYTES % (AUTO) 9.2 %; NEUTROPHILS # (AUTO) 3.1 10^3/uL (1.5-6.6); NEUTROPHILS % (AUTO) 60.9 %; PLT - PLATELET COUNT 149 10^3/uL (130-450); RED BLOOD COUNT 4.47 10^6/uL (4.70-6.10); RED CELL DISTRIBUTION WIDTH 12.6 % (12.0-15.0)
[2022-03-08 21:05] LABS: ALBUMIN/GLOBULIN RATIO 1.5 (1.0-2.2); BILIRUBIN,TOTAL 0.3 mg/dL (0.2-1.0); CALCIUM 8.9 mg/dL (8.5-10.3); CREATININE 0.8 mg/dL (0.6-1.2); POTASSIUM 3.9 mmol/L (3.5-5.0); TOTAL PROTEIN 6.6 g/dL (6.7-8.2)
[2022-03-08 21:07] LABS: BILIRUBIN,URINE NEGATIVE (NEGATIVE); GLUCOSE, URINE (UA) NEGATIVE (NEGATIVE); KETONES,URINE (UA) NEGATIVE (NEGATIVE); LEUKOCYTE ESTERASE, URINE NEGATIVE (NEGATIVE); NITRITE,URINE NEGATIVE (NEGATIVE); OCCULT BLOOD,URINE NEGATIVE (NEGATIVE); PROTEIN,URINE NEGATIVE (NEGATIVE); UROBILINOGEN,URINE 0.2 (NORMAL) E.U./dL (NORMAL)
[2022-03-08 21:13] LABS: CLARITY,URINE CLEAR (CLEAR)
--- NOTE | 2022-03-08 21:17 | CT Report ---
PROCEDURE: Abdomen/Pelvis WO INDICATIONS: lower abd pain/history of hernia surg TECHNIQUE: Noncontrast 5 mm thick sections acquired from the diaphragms to the symphysis. 5 mm coronal and sagi ttal reformats were then performed. For radiation dose reduction, the following was used: automated exposure control, adjustment of mA and/or kV according to patient size. COMPARISON: CT abdomen pelvis 12/14/2021. FINDINGS: Image quality: Excellent. Lung bases:There is mild atelectasis and scarring in the lung bases. Heart: Heart is normal in size. ABDOMEN: Liver: No mass lesion. Gallbladder: Within normal limits without calcified gallstones. Biliary ducts: No biliary ductal dilatation. Pancreas: Unremarkable. Spleen: Normal in size. Adrenal Glands: No adrenal nodules. Kidneys and Ureters: No hydronephrosis. There is nonspecific mild perinephric stranding bilaterally. Stomach and Bowel: Stomach, small bowel loops, and colon are normal in caliber and wall thickness. N o evidence of appendicitis. There is colonic diverticulosis without acute diverticulitis. Peritoneum: No abnormal intraperitoneal fluid. No free air. Ventral Wall: No hernia. Abdominal Nodes: No retroperitoneal or mesenteric adenopathy by size criteria. Vessels: Aorta and inferior vena cava are normal in size. PELVIS: Pelvic Organs: Unremarkable. Bladder: Unremarkable. Pelvic Nodes: No enlarged lymph nodes. Miscellaneous: There are postsurgical changes in the left hemipelvis consistent with prior inguinal h ernia repair. No recurrent hernia identified. No loculated fluid collections. Bones: Visualized osseous structures demonstrate no suspicious focal lesions. IMPRESSION: 1. Postsurgical changes redemonstrated in the left hemipelvis consistent with prior inguinal hernia r epair. No evidence of recurrent hernia or abnormal fluid collection. 2. Colonic diverticulosis without acute diverticulitis. Reviewed by: Kevin Tompkins MD on 03/08/2022 9:15 PM PDT Approved by: Kevin Tompkins MD on 03/08/2022 9:15 PM PDT Station ID: [id number]
[2022-03-08] MEDS ORDERED: LIDOCAINE PATCH 5% TOP STA (21:51)
--- OUTSIDE RECORDS SUMMARY | 2022-03-09 16:37 | EXTERNAL MEDICAL SUMMARY RPT | Continuity of Care Document ---
:1945 Author Organization [facility] Address [address] [place] [address] Phone Allergies No information. Encounters No information. Functional Status No information. Immunizations No information. Medications No information. Problems No information. Procedures No information. Results/Labs test date author facility value unit interpret ation Result panel 1 (unknown) (no (unknown) (unknown) (no value) (units (unk nown) date) unknown) (unknown) (no (unknown) (unknown) [address] [facility] (units ( unknown) date) unknown) (unknown) (no (unknown) (unknown) [address] [place] [address] (units (unknown) date) unknown) (unknown) (no (unknown) (unknown) [place], [place] (units ( unknown) date) [id number] unknown) (unknown) (no (unknown) (unknown) BSA: 2.00 mA? (units ( unknown) date) unknown) (unknown) (no (unknown) (unknown) Doppler (units (unkno wn) date) Measurements and unknown) Calculations (unknown) (no (unknown) (unknown) Echocardiography (units (unknown) date) Report unknown) (unknown) (no (unknown) (unknown) [facility] (units (unknown) date) unknown) (unknown) (no (unknown) (unknown) Signed (units (unkno wn) date) unknown) (unknown) (no (unknown) (unknown) (no value) (units (unk nown) date) unknown) (unknown) (no (unknown) (unknown) 12/29/21 (units (unkno wn) date) unknown) (unknown) (no (unknown) (unknown) 2D and M-Mode (units ( unknown) date) Measurements and unknown) Calculations (unknown) (no (unknown) (unknown) 35-40%. (units (unkno wn) date) unknown) (unknown) (no (unknown) (unknown) 9: 27 AM (units (unkno wn) date) unknown) (unknown) (no (unknown) (unknown) sev ratio: 0.90 (units (unknown) date) unknown) (unknown) (no (unknown) (unknown) HERNAN(I,D): 3.1 combination window installer? (units (unknown) date) unknown) (unknown) (no (unknown) (unknown) HERNAN(V,D): 3.2 combination window installer? (units (unknown) date) unknown) (unknown) (no (unknown) (unknown) Age: 76 Years (units ( unknown) date) Weight: 180.003 lb unknown) (unknown) (no (unknown) (unknown) Ao V2 VTI: 23.0 cm (units (unknown) date) unknown) (unknown) (no (unknown) (unknown) Ao V2 max: 104.0 (units (unknown) date) cm/sec unknown) (unknown) (no (unknown) (unknown) Ao V2 mean: 78.3 (units (unknown) date) cm/sec unknown) (unknown) (no (unknown) (unknown) Ao max P.0 (units (unknown) date) mmHg unknown) (unknown) (no (unknown) (unknown) Ao mean P.0 (units (unknown) date) mmHg unknown) (unknown) (no (unknown) (unknown) Ao root diam: 3.4 (units (unknown) date) cm unknown) (unknown) (no (unknown) (unknown) Aortic Valve: (units ( unknown) date) There is trace unknown) aortic regurgitation. There is mild aortic valve (unknown) (no (unknown) (unknown) Atria: The (units (unk nown) date) interatrial septum unknown) grossly appears intact with no obvious evidence (unknown) (no (unknown) (unknown) Clinician: Ronaldo (units (unknown) date) Erika unknown) (unknown) (no (unknown) (unknown) Compared to prior (units (unknown) date) study 08/2019 LV is unknown) less dynamic. EF is down from 45-50% to (unknown) (no (unknown) (unknown) : 1945 (units (unknown) date) BP: 118 / 71 mmHg unknown) (unknown) (no (unknown) (unknown) Doppler was (units (un known) date) performed. The unknown) study quality was technically adequate. Comparison (unknown) (no (unknown) (unknown) E/e' average: 5.5 (units (unknown) date) unknown) (unknown) (no (unknown) (unknown) Electronically (units (unknown) date) signed by: Christy mejia) Romero Trejo (unknown) (no (unknown) (unknown) Gender: Male (units (u nknown) date) Height: 70 in unknown) (unknown) (no (unknown) (unknown) Great Vessels: The (units (unknown) date) ascending aorta unknown) could not be visualized. The aortic root is (unknown) (no (unknown) (unknown) History: (units (unkno wn) date) unknown) (unknown) (no (unknown) (unknown) IVSd: 1.00 cm (units ( unknown) date) unknown) (unknown) (no (unknown) (unknown) LA A2 area: 18.7 (units (unknown) date) combination window installer? unknown) (unknown) (no (unknown) (unknown) LA A4 area: 22.1 (units (unknown) date) combination window installer? unknown) (unknown) (no (unknown) (unknown) LA length (vol): (units (unknown) date) 6.0 cm unknown) (unknown) (no (unknown) (unknown) LA vol index: 29.3 (units (unknown) date) ml/mA? unknown) (unknown) (no (unknown) (unknown) LA vol: 58.5 ml (units (unknown) date) unknown) (unknown) (no (unknown) (unknown) LV V1 VTI: 20.7 cm (units (unknown) date) unknown) (unknown) (no (unknown) (unknown) LV V1 max P.7 (units (unknown) date) mmHg unknown) (unknown) (no (unknown) (unknown) LVIDd: 4.3 cm (units ( unknown) date) unknown) (unknown) (no (unknown) (unknown) LVIDs: 3.4 cm (units ( unknown) date) unknown) (unknown) (no (unknown) (unknown) LVOT Max Dany: 96.0 (units (unknown) date) cm/sec unknown) (unknown) (no (unknown) (unknown) LVOT diam: 2.10 cm (units (unknown) date) unknown) (unknown) (no (unknown) (unknown) LVPWd: 0.90 cm (units (unknown) date) unknown) (unknown) (no (unknown) (unknown) Lat Peak E' Dany: (units (unknown) date) 8.4 cm/sec unknown) (unknown) (no (unknown) (unknown) Left Ventricle: (units (unknown) date) Diastolic unknown) parameters suggest a relaxation abnormality of the (unknown) (no (unknown) (unknown) (units (unknown) date) unknown) (unknown) (no (unknown) (unknown) MV A max dany: 59.1 (units (unknown) date) cm/sec unknown) (unknown) (no (unknown) (unknown) MV E max dany: 44.1 (units (unknown) date) cm/sec unknown) (unknown) (no (unknown) (unknown) MV E/A: 0.75 (units (u nknown) date) unknown) (unknown) (no (unknown) (unknown) MV dec time: 0.31 (units (unknown) date) sec unknown) (unknown) (no (unknown) (unknown) Med Peak E' Dany: (units (unknown) date) 7.5 cm/sec unknown) (unknown) (no (unknown) (unknown) Mitral Valve: (units ( unknown) date) There is trace unknown) mitral regurgitation. There is mild mitral (unknown) (no (unknown) (unknown) Name: LC, (units (unknown) date) SHANTAL A Study unknown) Date: 12/29/2021, (unknown) (no (unknown) (unknown) No valvular (units (un known) date) abnormalities. unknown) (unknown) (no (unknown) (unknown) Normal LV size and (units (unknown) date) wall thickness. unknown) There is basal anteroseptal, (unknown) (no (unknown) (unknown) Normal chamber (units (unknown) date) sizes. unknown) (unknown) (no (unknown) (unknown) Normal sinus (units (u nknown) date) rhythm. unknown) (unknown) (no (unknown) (unknown) Ordering: Christy (units (unknown) date) Romero Trejo unknown) (unknown) (no (unknown) (unknown) Pericardium/ (units (u nknown) date) Pleura: There is no unknown) pericardial effusion. There is no pleural (unknown) (no (unknown) (unknown) Procedure: A (units (u nknown) date) two-dimensional unknown) transthoracic echocardiogram with color flow and (unknown) (no (unknown) (unknown) Pulmonic Valve: (units (unknown) date) There is a trace or unknown) physiologic amount of pulmonic (unknown) (no (unknown) (unknown) RA long axis: 5.3 (units (unknown) date) cm unknown) (unknown) (no (unknown) (unknown) Reason For Study: (units (unknown) date) CAD unknown) (unknown) (no (unknown) (unknown) Referring: (units (unk nown) date) CHRISTY NEGRON unknown) (unknown) (no (unknown) (unknown) Right Ventricle: (units (unknown) date) The right ventricle unknown) is normal in size and function. (unknown) (no (unknown) (unknown) Study ID: [id number] (units (unknown) date) unknown) (unknown) (no (unknown) (unknown) Summary Statements (units (unknown) date) unknown) (unknown) (no (unknown) (unknown) TAPSE_phl: 1.97 cm (units (unknown) date) unknown) (unknown) (no (unknown) (unknown) Tricuspid Valve: (units (unknown) date) Pulmonary artery unknown) pressures cannot be estimated because of the (unknown) (no (unknown) (unknown) Christy Negron (units (unknown) date) M.D. 12/31/2021, unknown) 9: 10 AM (unknown) (no (unknown) (unknown) (units (unknown) date) unknown) ___ (unknown) (no (unknown) (unknown) a sniff. This (units ( unknown) date) suggests a low unknown) right atrial pressure of 3 mm Hg. (unknown) (no (unknown) (unknown) and wall (units (unkno wn) date) thickness. There is unknown) septal wall severe hypokinesis. There is apical (unknown) (no (unknown) (unknown) annular (units (unkno wn) date) calcification. unknown) (unknown) (no (unknown) (unknown) effusion. (units (unkn own) date) unknown) (unknown) (no (unknown) (unknown) for an atrial (units ( unknown) date) septal defect. Both unknown) atria are normal in size. (unknown) (no (unknown) (unknown) fraction is (units (un known) date) estimated to be 35 unknown) +/- 5%. The left ventricle is normal in size (unknown) (no (unknown) (unknown) is made with the (units (unknown) date) echocardiogram of unknown) 08/29/2019. (unknown) (no (unknown) (unknown) lack of a (units (unkn own) date) measurable TR jet unknown) velocity. No tricuspid regurgitation. The (unknown) (no (unknown) (unknown) left ventricle, (units (unknown) date) consistent with unknown) probable normal filling pressures. Left (unknown) (no (unknown) (unknown) mid-anteroseptal (units (unknown) date) hypokinesis, unknown) mid-anterior akinesis. Otherwise normal wall (unknown) (no (unknown) (unknown) motion. EF is (units ( unknown) date) 35-40%. unknown) (unknown) (no (unknown) (unknown) normal size. The (units (unknown) date) IVC is of normal unknown) diameter and collapses greater than 50% with (unknown) (no (unknown) (unknown) regurgitation. The (units (unknown) date) pulmonic valve is unknown) not well seen, but is grossly normal. (unknown) (no (unknown) (unknown) sclerosis. (units (unk nown) date) unknown) (unknown) (no (unknown) (unknown) severe (units (unkno wn) date) hypokinesis. unknown) (unknown) (no (unknown) (unknown) tricuspid valve is (units (unknown) date) normal in structure unknown) and function. (unknown) (no (unknown) (unknown) ventricular (units (un known) date) systolic function unknown) is moderately reduced. Left ventricular ejection (unknown) (no (unknown) (unknown) Accession Number: (units (unknown) date) [id number] unknown) (unknown) (no (unknown) (unknown) Age/Sex: 76 / M (units (unknown) date) Date of Service: unknown) (unknown) (no (unknown) (unknown) : 1945 (units (unknown) date) Acct:[id number] unknown) (unknown) (no (unknown) (unknown) GenericComposite[ (units (unknown) date) HERNAN indexed to BSA unknown) (cm^2/m^2): 1.56 ] (unknown) (no (unknown) (unknown) GenericComposite[ (units (unknown) date) LV kat. unknown) diameter/BSA (cm/m^2): 2.15 ] (unknown) (no (unknown) (unknown) GenericComposite[ (units (unknown) date) LV sys. unknown) diameter/BSA (cm/m^2): 1.70 ] (unknown) (no (unknown) (unknown) Loc: [facility] (units (unkn own) date) unknown) (unknown) (no (unknown) (unknown) [id number] (units (unk nown) date) unknown) (unknown) (no (unknown) (unknown) Ordering Provider: (units (unknown) date) Christy Negron MD unknown) (unknown) (no (unknown) (unknown) Patient: (units (unkno wn) date) Shantal Weiss unknown) MR#: (unknown) (no (unknown) (unknown) Procedure: EC echo (units (unknown) date) doppler complete unknown) (unknown) (no (unknown) (unknown) Version: 1 (units (unk nown) date) unknown) Social History No information. Vital Signs No information.
== END 2022-03-08 22:20 | disposition home or self-care (01) ==
LOC: ED 20:01
DX: R10.30 Lower abdominal pain, unspecified (principal); I10 Essential (primary) hypertension
CPT/HCPCS: 36415; 51798; 74176; 80053; 81003; 83690; 85025; 99282; 99284; A9270; 81001; 87086

== ENCOUNTER 2022-06-05 07:33 | Outpatient (CLI) | payer MEDICARE, BC ==
[2022-06-05 08:01] LABS: ALBUMIN 4.7 g/dL (3.2-5.5); ALBUMIN/GLOBULIN RATIO 1.7 (1.0-2.2); ALKALINE PHOSPHATASE 46 IU/L (42-121); ALT ALANINE AMINOTRANSFERASE 12 IU/L (10-60); AST ASPARTATE AMINOTRANSFERASE 13 IU/L (10-42); BILIRUBIN,TOTAL 0.8 mg/dL (0.2-1.0); BUN - BLOOD UREA NITROGEN 23 mg/dL (6-20); CALCIUM 9.7 mg/dL (8.5-10.3); CARBON DIOXIDE - CO2 30 mmol/L (21-32); CHLORIDE 104 mmol/L (101-111); CHOL/HDL RATIO 3.4 (<5.0); CHOLESTEROL 189 mg/dL; CREATININE 0.9 mg/dL (0.6-1.2); GFR - MDRD 82 (>89); GLUCOSE 100 mg/dL (70-100); HDL CHOLESTEROL 56 mg/dL; LDL CHOLESTEROL,CALCULATED 100 mg/dL; LDL/HDL RATIO 1.8 (<3.6); POTASSIUM 4.3 mmol/L (3.5-5.0); SODIUM 142 mmol/L (135-145); TOTAL PROTEIN 7.5 g/dL (6.7-8.2); TRIGLYCERIDES 165 mg/dL; VLDL CHOLESTEROL 33 mg/dL
== END 2022-06-05 07:34 | disposition home or self-care (01) ==
LOC: LAB 07:33
PROVIDERS: ATTEND Internal Medicine
DX: I25.5 Ischemic cardiomyopathy (principal); I25.10 Atherosclerotic heart disease of native coronary artery without angina pectoris
CPT/HCPCS: 36415; 80053; 80061; 83721

== ENCOUNTER 2022-08-04 07:29 | Outpatient (CLI) | payer MEDICARE, BC ==
[2022-08-04 07:52] LABS: BASOPHILS % (AUTO) 0.4 %; EOSINOPHILS # (AUTO) 0.2 10^3/uL (0.0-0.7); EOSINOPHILS % (AUTO) 2.3 %; HCT - HEMATOCRIT 44.3 % (42.0-52.0); LYMPHOCYTES # (AUTO) 1.4 10^3/uL (1.5-3.5); LYMPHOCYTES % (AUTO) 19.8 %; MEAN CORPUSCULAR HEMOGLOBIN 31.6 pg (27.0-31.0); MEAN CORPUSCULAR HGB CONC 33.9 g/dL (32.0-36.0); MEAN CORPUSCULAR VOLUME 93.3 fL (80.0-94.0); MEAN PLATELET VOLUME 9.5 fL (7.4-11.4); MONOCYTES # (AUTO) 0.6 10^3/uL (0.0-1.0); MONOCYTES % (AUTO) 7.9 %; NEUTROPHILS # (AUTO) 4.8 10^3/uL (1.5-6.6); NEUTROPHILS % (AUTO) 69.3 %; PLT - PLATELET COUNT 142 10^3/uL (130-450); RED BLOOD COUNT 4.75 10^6/uL (4.70-6.10); RED CELL DISTRIBUTION WIDTH 12.7 % (12.0-15.0); WHITE BLOOD COUNT 6.9 x10^3/uL (4.8-10.8)
[2022-08-04 08:09] LABS: ALBUMIN 4.5 g/dL (3.2-5.5); ALBUMIN/GLOBULIN RATIO 1.9 (1.0-2.2); BILIRUBIN,TOTAL 0.6 mg/dL (0.2-1.0); CALCIUM 9.5 mg/dL (8.5-10.3); CREATININE 0.8 mg/dL (0.6-1.2); POTASSIUM 4.5 mmol/L (3.5-5.0); TOTAL PROTEIN 6.9 g/dL (6.7-8.2); URIC ACID 5.1 mg/dL (2.6-7.2)
[2022-08-04 08:13] LABS: CHOLESTEROL 146 mg/dL; HDL CHOLESTEROL 49 mg/dL; LDL CHOLESTEROL,CALCULATED 71 mg/dL; LDL/HDL RATIO 1.4 (<3.6); TRIGLYCERIDES 129 mg/dL; VLDL CHOLESTEROL 26 mg/dL
[2022-08-04 08:23] LABS: THYROID STIMULATING HORMONE 3.94 uIU/mL (0.34-5.60)
[2022-08-04 08:25] LABS: FREE T4 (FREE THYROXINE) 0.87 ng/dL (0.58-1.64)
[2022-08-04 11:47] LABS: ESTIMATED AVERAGE GLUCOSE 108 mg/dL (70-100); HEMOGLOBIN A1c% 5.4 % (4.27-6.07)
== END 2022-08-04 07:30 | disposition home or self-care (01) ==
LOC: LAB 07:29
PROVIDERS: ATTEND Internal Medicine
DX: Z00.00 Encounter for general adult medical examination without abnormal findings (principal); E78.00 Pure hypercholesterolemia, unspecified; E03.8 Other specified hypothyroidism; I25.10 Atherosclerotic heart disease of native coronary artery without angina pectoris; R73.01 Impaired fasting glucose; M10.9 Gout, unspecified; Z86.010 Personal history of colon polyps; E78.5 Hyperlipidemia, unspecified; E03.9 Hypothyroidism, unspecified; M19.90 Unspecified osteoarthritis, unspecified site; C61 Malignant neoplasm of prostate; J45.909 Unspecified asthma, uncomplicated; I95.89 Other hypotension
CPT/HCPCS: 36415; 80053; 80061; 82533; 82550; 83036; 83721; 84439; 84443; 84550; 85025

== ENCOUNTER 2023-06-27 07:23 | Outpatient (CLI) | payer MEDICARE, BC ==
[2023-06-27 08:01] LABS: CHOLESTEROL 138 mg/dL; TRIGLYCERIDES 155 mg/dL (48-352); VLDL CHOLESTEROL 31 mg/dL
[2023-06-28 00:04] LABS: CHOL/HDL RATIO 2.8 (<5.0); HDL CHOLESTEROL 49 mg/dL; LDL CHOLESTEROL,CALCULATED 58 mg/dL; LDL/HDL RATIO 1.2 (<3.6)
== END 2023-06-27 07:24 | disposition home or self-care (01) ==
LOC: LAB 07:23
PROVIDERS: ATTEND Internal Medicine
DX: E78.5 Hyperlipidemia, unspecified (principal)
CPT/HCPCS: 36415; 80061; 83721

== ENCOUNTER 2023-09-06 14:33 | Outpatient (CLI) | payer MEDICARE, BC ==
--- NOTE | 2023-09-06 20:49 | XRAY Report ---
PROCEDURE: Shoulder 3 View LT INDICATIONS: SHOULDER PAIN BACK PAIN TECHNIQUE: 3 views of the shoulder were acquired. COMPARISON: None. FINDINGS: Bones: No fractures or dislocations. No suspicious bony lesions. Visualized ribs appear intact. G lenohumeral joint degenerative change, relatively mild. AC joint hypertrophy with mild downward going component. Soft tissues: No suspicious soft tissue calcifications. The visualized lungs are within normal limi ts. IMPRESSION: No acute bony abnormality. Degenerative arthritis. Reviewed by: Raoul Crum MD on 09/06/2023 8:48 PM PST Approved by: Raoul Crum MD on 09/06/2023 8:48 PM PST Station ID: [id number]
--- NOTE | 2023-09-06 20:50 | XRAY Report ---
PROCEDURE: Lumbar Spine 2 View INDICATIONS: SHOULDR PAIN BACK PAIN TECHNIQUE: 2 views of the lumbar spine were acquired. COMPARISON: None. FINDINGS: Bones: 5 eja-[id number]-mdnjriy vertebrae are present. There is normal bony alignment. No vertebral body compression fractures. No suspicious bony lesions. Relatively severe lower lumbar facet arthropathy. Suspect canal stenosis in the lower lumbar region. Soft tissues: Overlying bowel gas pattern is normal. No suspicious soft tissue calcifications. IMPRESSION: Relatively severe lower lumbar facet arthropathy. Suspect canal stenosis. No acute bony abnormality. Comment: Lumbar spine MRI may be helpful, depending upon symptoms. Reviewed by: Raoul Crum MD on 09/06/2023 8:49 PM PST Approved by: Raoul Crum MD on 09/06/2023 8:49 PM PST Station ID: [id number]
--- NOTE | 2023-09-06 20:51 | XRAY Report ---
PROCEDURE: Thoracic Spine 2 View INDICATIONS: SHOULDER PAIN BACK PAIN TECHNIQUE: 2 views of the thoracic spine were acquired. COMPARISON: None. FINDINGS: Bones: No fractures or dislocations. No suspicious bony lesions. 12 pairs of ribs are noted, and a ppear intact where visualized. Soft tissues: No paravertebral stripe thickening. IMPRESSION: No acute bony abnormality. Reviewed by: Raoul Crum MD on 09/06/2023 8:50 PM PST Approved by: Raoul Crum MD on 09/06/2023 8:50 PM PST Station ID: [id number]
== END 2023-09-06 14:34 | disposition home or self-care (01) ==
LOC: DI 14:33
PROVIDERS: ATTEND Internal Medicine
DX: M54.6 Pain in thoracic spine (principal); M19.012 Primary osteoarthritis, left shoulder; M47.816 Spondylosis without myelopathy or radiculopathy, lumbar region; M48.061 Spinal stenosis, lumbar region without neurogenic claudication

== ENCOUNTER 2024-02-14 16:41 | Outpatient (CLI) | payer MEDICARE, BC | END 2024-02-14 16:42 | disposition home or self-care (01) | LOC: LAB 16:41 | PROVIDERS: ATTEND Urology | DX: C61 Malignant neoplasm of prostate (principal) | CPT/HCPCS: 36415; 84153 ==

== ENCOUNTER 2024-02-21 08:00 | Outpatient (CLI) | payer MEDICARE, BC | END 2024-02-21 08:01 | disposition home or self-care (01) | LOC: LAB 08:00 | PROVIDERS: ATTEND Urology | DX: N40.1 Benign prostatic hyperplasia with lower urinary tract symptoms (principal) | CPT/HCPCS: 81001; 87086 ==

== ENCOUNTER 2024-03-26 07:29 | Outpatient (CLI) | payer MEDICARE, BC | END 2024-03-26 07:30 | disposition home or self-care (01) | LOC: LAB 07:29 | PROVIDERS: ATTEND Ophthalmology | DX: G43.109 Migraine with aura, not intractable, without status migrainosus (principal) | CPT/HCPCS: 36415; 85651; 86140 ==

== ENCOUNTER 2024-04-30 08:12 | Outpatient (CLI) | payer MEDICARE, BC ==
[2024-04-30] MEDS ORDERED: DIATRIZOATE MEGLU/DIATRIZO SOD 30 ML BOTTLE PO ONE (08:38)
[2024-04-30] MEDS: DIATRIZOATE MEGLU/DIATRIZO SOD 30 ML BOTTLE PO ONE (10:09)
--- NOTE | 2024-05-01 14:41 | CT Report ---
PROCEDURE: Pelvis WO INDICATIONS: RIGHT GROIN PAIN TECHNIQUE: Noncontrast 3 mm axial sections acquired through the bony pelvis, with coronal and sagittal reformatt ing. For radiation dose reduction, the following was used: automated exposure control, adjustment of mA and/or kV according to patient size. COMPARISON: CT abdomen and pelvis 05/09/2022. FINDINGS: Image quality: Excellent. 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 No fracture or dislocation. No suspicious osseous le [place]. 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 Multilevel Schmorl's nodes at the lower lumbar spine. Soft tissues: No right inguinal hernia. No adenopathy. Prior left inguinal hernia repair. Multiple c lips. No convincing recurrent left inguinal hernia. Groins appear unchanged. Possible small diverticulum at the anterior bladder dome, (). 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 Diverticulosis. The appendix is not identified. Arteriovascular calcifications. IMPRESSION: No inguinal hernia demonstrated. No adenopathy or fluid collection. Reviewed by: Gasper Yip MD on 05/01/2024 2:40 PM PDT Approved by: Gasper Yip MD on 05/01/2024 2:40 PM PDT Station ID: [id number]
== END 2024-04-30 08:13 | disposition home or self-care (01) ==
LOC: DI 08:12
PROVIDERS: ATTEND Surgery
DX: R10.31 Right lower quadrant pain (principal)
CPT/HCPCS: 72192; Q9963